=== PATIENT | male | born 1955 | race Caucasian/White ===

== ENCOUNTER 2016-11-10 15:00 | Inpatient (IN) | payer BC ==
[~2016-11-10] VITALS: Ht 175.3 cm; Wt 94.5 kg
[2016-11-10 16:14] LABS: BASO # 0.1 K/mm3 (0.0-0.2); EOS # 0.1 K/mm3 (0.0-0.50); EOS % 1.3 % (0.0-3.0); LARGE UNSTAINED CELL # 0.2 K/mm3 (0.0-0.4); LARGE UNSTAINED CELL % 2.7 % (0.0-4.0); LYMPH # 1.4 K/mm3 (1.5-4.5); LYMPH % 19.2 % (24.0-44.0); MEAN CORPUSCULAR VOLUME 93.9 fl (80.0-96.0); MONO # 0.6 K/mm3 (0.0-0.8); MONO % 10.3 % (0.0-5.0); NEUTROPHILS # 4.1 K/mm3 (1.8-7.7); NEUTROPHILS % 65.5 % (36.0-66.0); PLATELET COUNT, AUTOMATED 205 k/mm3 (150-450); RED CELL DISTRIBUTION WIDTH 13.6 % (11.5-14.5); WHITE BLOOD COUNT 6.2 K/mm3 (4.0-10.0)
[2016-11-10 16:37] LABS: CALCIUM LEVEL 8.6 MG/DL (8.8-10.2); CREATININE FOR GFR 5.18 MG/DL (0.70-1.30); GLOMERULAR FILTRATION RATE 12.1 (>49); MAGNESIUM LEVEL 2.7 MG/DL (1.8-2.4); POTASSIUM SERUM 4.6 MEQ/L (3.5-5.1); THYROXINE (T4) 5.3 UG/DL (4.5-12.0)
--- NOTE | 2016-11-10 16:55 | REP ---
Clinical: Pain and swelling . Technique: Raymond scale and color Doppler evaluation using linear high frequency transducer. Findings: Ultrasound examination of the right and left lower extremity deep venous structures from the common femoral vein to the popliteal vein demonstrates normal compressibility flow and wave patterns in response to respiration and augmentation. There is no evidence for deep venous thrombosis. Impression: No evidence for deep venous thrombosis bilaterally . Signed by Db Herndon MD 11/10/2016 04:45 P
[2016-11-10] MEDS ORDERED: DILT0.05 PO (17:42)
[2016-11-10] MEDS ORDERED: METO-207 PO (17:42)
[2016-11-10] MEDS ORDERED: LASI40TA PO (17:42)
[2016-11-10] MEDS ORDERED: ADVICAP PO (17:44)
--- NOTE | 2016-11-10 17:46 | REP ---
CHEST, TWO VIEWS: HISTORY: Shortness of breath. COMPARISON: 10/05/2016. Linear density is present in the right lower lobe consistent with atelectasis. The left lung is clear. The cardiac silhouette is enlarged. The thoracic aorta is tortuous. The pulmonary vasculature is normal in appearance. The bony structure is intact. IMPRESSION: 1. Right lower lobe atelectasis. 2. Cardiomegaly. Signed by Jefe Beltran MD 11/11/2016 08:17 A
--- NOTE | 2016-11-10 21:02 | HPE ---
DATE OF ADMISSION: 11/10/2016 PRIMARY CARE PROVIDER: None. REASON FOR ADMISSION: Shortness of breath. HISTORY OF PRESENT ILLNESS: The patient is a 61-year-old male past medical a significant for congestive heart failure recently diagnosed at [facility] in [place] with an EF of 50%, atrial fibrillation, kidney disease, history of aortic dissection, hypertension, presented to the emergency room complaining of feeling dizzy and short of breath when he was driving over from [place] he just had an appointment with his monitor technician this morning where his monitor technician just wanted to increase his metoprolol due to increased heart rate. The patient however stated he has been having panic attacks which would make his shortness of breath and tachycardia worse. He has not been able to sleep. Had to pull the car over and calm himself down before he was able to drive again and presented to the emergency room. In the ED the patient was found to have tachycardia, rate 120s to 130s, blood pressure was stable, respiratory rate is 24, first set of troponins were negative. EKG showed atrial fibrillation with rapid return ventricular response. The patient was admitted under hospitalist service. REVIEW OF SYSTEMS: The patient at this time denies any chest pain or shortness of breath. Denies any feeling of dizziness or diaphoresis. He has been having increasingly worsening of panic attacks where he has a has not been able to calm himself down, has been having difficulty falling asleep at night, and feeling not rested in the morning. Has been having decreased urination but no other symptoms. Denies any fevers or chills. No nausea, vomiting or diarrhea. No abdominal pain. No neurological symptoms. PAST MEDICAL HISTORY: Significant for atrial fibrillation, hypertension, aortic dissection, aortic aneurysm, kidney disease and anxiety. PAST SURGICAL HISTORY: None. ALLERGIES: To CLONIDINE; reaction confusion, dizziness. SOCIAL HISTORY: The patient denies any alcohol or smoking. Lives at home alone. FAMILY HISTORY: Noncontributory. HOME MEDICATIONS: include diltiazem 180 mg by mouth daily Lasix 80 mg by mouth daily metoprolol 50 mg at bedtime PHYSICAL FINDINGS ON ADMISSION: Blood pressure is 128/112, pulse was 24, respiratory rate 24, temperature 97.2, pulse ox 99% on room air. HEENT: Pupils equal round reactive to light and accommodation. NECK: Supple. No jugular venous distention. LUNGS: Clear bilaterally. CARDIAC: Irregular rate and rhythm. No murmurs appreciated. ABDOMEN: Soft, nontender, nondistended. EXTREMITIES: +1 edema bilaterally. NEURO: Cranial nerves II-XII grossly intact. No focal deficits. LABORATORY FINDINGS: WBC 6.2, hemoglobin 14.1, hematocrit 44.1, platelet count 205, sodium 139, potassium 4.6, chloride 104, BUN 72, creatinine 5.18, glucose 101, magnesium 2.7, BNP 2320. Thyroid panel was normal. Chest x-ray showed right lower lobe atelectasis and cardiomegaly. Lower extremity ultrasound was negative. ASSESSMENT/PLAN: 1. Shortness of breath likely secondary to panic disorder. The patient has good oxygen saturation. He is satting 99% on room air. Chest x-ray did not show any acute findings other than right lower lobe atelectasis. On physical examination the patient's lung exam sounds clear. Does not appear to be grossly fluid overloaded. We will continue the patient's Lasix 80 mg by mouth daily. 2. History of congestive heart failure per echo results from [facility]. The patient is an EF of 50%. We will continue the patient's Lasix at this time. We will consult Dr. Hall it was agreed to see the patient in consultation. 3. Atrial fibrillation with rapid ventricular response. We will continue the patient's metoprolol. We will monitor the patient on cardiac monitoring. We will continue diltiazem 180 mg by mouth daily. We will consult Dr. Hall. 4. Chronic kidney disease with worsening kidney function. We will consult Dr. Wade. The patient does admit to having a decreased urine output despite being on Lasix 80 mg by mouth daily. 5. History of aortic dissection. The patient does see vascular surgery in [place] who did not recommend any surgery at this time stating that his risk outweighs the benefit of having repair and this is a reason why he is not on any anticoagulation for atrial fibrillation. 6. History of panic disorder. The patient stated has been getting worse. He denies seeing any psychiatrist. He will likely need an outpatient psych referral once medically cleared. 7. DVT prophylaxis. Sequential compression devices (SCDs) while in bed.
--- NOTE | 2016-11-10 22:24 | EDDOCDS ---
Physician Documentation [facility] Name: Jefe Rg Age: 61 yrs Sex: Male : 1955 Arrival Date: 11/10/2016 Time: 15:00 Bed Admit Hold Private MD: Disposition: 11/10/16 17:08 Hospitalization ordered by Jimi Mary for Inpatient Admission. Preliminary diagnosis are Unspecified atrial fibrillation, Acute kidney failure, Acute diastolic (congestive) heart failure. - Bed requested for PCU. - Status is Inpatient Admission. mv5 - Condition is Stable. - Problem is new. - Symptoms are unchanged. Historical: - Allergies: Clonidine (aphasia and dizziness); - Home Meds: 1. diltiazem HCl 180 mg Oral cpER 1 cap once daily (Last dose: 11/10/2016 06:30) 2. furosemide 40 mg Oral tab 2 tabs once daily (Last dose: 11/07/2016) 3. metoprolol ER 50 mg nightly (Last dose: 11/09/2016 22:30) 4. advil cold and flu Unknown 1 cap twice a day (Last dose: 11/10/2016 06:30) - PMHx: Hypertension; aortic dissection; aoritic aneurism; Atrial Fib; kidney disease; - PSHx: none; - Social history: Smoking status: Patient states was never smoker of tobacco. Patient uses No barriers to communication noted, The patient speaks fluent [place]. - Family history: No immediate family members are acutely ill. - : The pt / caregiver states he / she is not on anticoagulants. Home medication list is obtained from patients' pharmacy. - Exposure Risk Screening:: None identified. Vital Signs: 11/10 15:06 BP 128 / 112; Pulse 124; Resp 24; Pulse Ox 99% on R/A; elp 15:34 Temp 97.2; ja5 15:42 BP 117 / 76 (auto/); ja5 15:42 Pulse 100 MON; Pulse Ox 79% ; ja5 15:44 BP 117 / 83 (auto/); ja5 15:44 Pulse 108 MON; Pulse Ox 97% ; ja5 16:02 BP 122 / 90 (auto/); ja5 16:02 Pulse 106 MON; Pulse Ox 95% ; ja5 16:12 Pulse 118 MON; Pulse Ox 96% ; ja5 16:14 BP 128 / 100 (auto/); ja5 16:29 BP 112 / 80 (auto/); ja5 16:29 Pulse 110 MON; ja5 16:43 Pulse 124 MON; ja5 16:44 BP 164 / 85 (auto/); ja5 17:02 BP 135 / 80 (auto/); ja5 17:02 Pulse 124 MON; ja5 17:40 Weight 99.79 kg / 220 lbs; Height 5 ft. 9 in. (175.26 cm); ja5 18:50 BP 137 / 119; Pulse 113; Resp 24; Temp 97.5(O); Pulse Ox 95% on R/A; Pain 0/10; ja5 19:14 BP 127 / 105 (auto/); mv5 19:15 BP 127 / 105; Pulse 126 MON; Resp 18; Temp 96.8(O); Pulse Ox 94% ; mv5 19:29 BP 158 / 119 (auto/); mv5 19:30 Pulse 122 MON; Pulse Ox 96% ; mv5 19:44 BP 156 / 104 (auto/); mv5 19:44 Pulse 122 MON; Pulse Ox 92% ; mv5 19:57 BP 135 / 101 (auto/); mv5 19:58 Pulse 118 MON; Pulse Ox 97% ; mv5 19:59 BP 135 / 119 (auto/); mv5 20:00 Pulse 116 MON; Pulse Ox 96% ; mv5 20:14 BP 132 / 109 (auto/); mv5 20:15 Pulse 112 MON; Pulse Ox 94% ; mv5 20:45 Pulse 126 MON; Pulse Ox 95% ; mv5 21:00 Pulse 126 MON; Pulse Ox 95% ; mv5 21:15 Pulse 124 MON; Pulse Ox 93% ; mv5 21:30 Pulse 120 MON; Pulse Ox 94% ; mv5 21:46 Pulse 132 MON; Pulse Ox 96% ; mv5 17:40 Body Mass Index 32.49 (99.79 kg, 175.26 cm) [facility] MDM: 15:32 -Blood Culture (Adults Only), peripheral from different site, or from device/port/PICC sd1 etc. if present ordered. 15:32 Manager Unit/Pulse Ox/q 15 min VS ordered. sd1 15:32 IV Saline Lock ordered. sd1 15:32 Rhythm Strip to chart ordered. sd1 15:34 Chest, 2 View (pa\E\lat) Ordered. EDMS 15:34 -Blood Culture Ordered. EDMS 15:34 B-Type Natiuretic Peptide Ordered. EDMS 15:34 Basic Metabolic Profile Ordered. EDMS 15:34 CBC with Diff Ordered. EDMS 15:34 Cardiac Injury Profile Ordered. EDMS 15:34 Troponin Ordered. EDMS 15:34 Thyroid Profile Ordered. EDMS 15:34 Magnesium Level Ordered. EDMS 15:34 ECG WITH READING ER PHYS+CARDIAG ordered. EDMS 15:34 US Lower Extremities Bilateral R/O DVT Ordered. EDMS 15:39 -Blood Culture (Adults Only), peripheral from different site, or from device/port/PICC lbd etc. if present complete. 15:41 Misc Care Transitions Manager Order ordered. sd1 15:42 BLOOD CULTURES Ordered. EDMS 15:48 Misc Care Transitions Manager Order ordered. sd1 16:00 Misc Care Transitions Manager Order complete. lbd 16:00 Misc Care Transitions Manager Order complete. lbd 16:03 ECG WITH READING ER PHYS ordered. EDMS 16:20 Financial registration complete. zo 16:45 B-Type Natiuretic Peptide Reviewed. sd1 16:45 Basic Metabolic Profile Reviewed. sd1 16:45 CBC with Diff Reviewed. sd1 16:45 Magnesium Level Reviewed. sd1 16:45 Troponin Reviewed. sd1 17:02 Urine Random,Creatinine Ordered. EDMS 17:02 Urine Random,Potassium, Ordered. EDMS 17:02 Urine,Osmolality Ordered. EDMS 17:04 Basic Metabolic Profile Reviewed. sd1 17:04 Thyroid Profile Reviewed. sd1 17:04 Magnesium Level Reviewed. sd1 17:04 Cardiac Injury Profile Reviewed. sd1 17:04 Troponin Reviewed. sd1 17:46 Admission / Observation Status ordered. EDMS 17:46 2 GRAM SODIUM DIET ordered. EDMS 17:57 [facility] Payment Agreement was scanned into [email or web address] and attached to record. zo 18:15 TROPONIN Ordered. EDMS 19:31 CBC WITH DIFFERENTIAL Ordered. EDMS 19:31 COMPLETE COMPHRENSIVE METABOLI Ordered. EDMS 19:31 MAGNESIUM LEVEL Ordered. EDMS 19:31 TROPONIN Ordered. EDMS 21:18 TROPONIN Ordered. EDMS Signatures: Dispatcher [employer] EDMS Isabel Rodriguez MD MD sd1 Denia Clark, Supervisor [employer] lbd Silvino Gutierrez RN RN cz Carlos Salamanca Steven, RN RN sa Anderson, Jessica, RN RN Marisa JohnsonRN RN mv5 The chart was reviewed and I authenticate all verbal orders and agree with the evaluation and treatment provided.Corrections: (The following items were deleted from the chart) 18:43 15:32 Oxygen at 4L/Min NC or Home dosage ordered. sd1 jc4 21:18 19:31 TROPONIN ordered. EDMS EDMS Attachments: 17:57 [facility] Payment Agreement zo MTDD
--- NOTE | 2016-11-10 22:24 | EDDOCDS ---
Nurse's Notes [facility] Name: Jefe Rg Age: 61 yrs Sex: Male : 1955 Arrival Date: 11/10/2016 Time: 15:00 Bed Admit Hold Private MD: Diagnosis: Unspecified atrial fibrillation;Acute kidney failure;Acute diastolic (congestive) heart failure Presentation: 11/10 15:08 Presenting complaint: Patient states: Was driving back from [place] after followup at [address] Garcia of Cardiology, states he began to feel dizzy and short of breath in the car and pulled over. Pt reports he began to panic and felt that he was going to become incontinent. Pt reports that he is "unbelievably short of breath". States both his arms fell "funny" and that he "sort of" has chest pain. Adult Sepsis Screening: The patient does not have new or worsening altered mentation. Patient has a respiratory rate of greater than or equal to 22 (1 point). Systolic blood pressure is greater than 100. Patient has a qSOFA score of 1- Negative Sepsis Screen. Suicide/Homicide risk assessment- the patient denies having any suicidal and/or homicidal ideations and does not present with any other emotional, behavioral or mental health complaints. Status: Patient is not a statistical machine servicer or dependent. Transition of care: patient was not received from another setting of care. Red Flag criteria, patient assessed and taken directly to a bed. 15:08 Acuity: TIA Level 2 lf1 15:08 Method Of Arrival: Wheelchair [facility] 15:08 Red Flag criteria, patient assessed and taken directly to a bed. Charge notified, pt. 1 taken to room via wheelchair. Primary nurse notified. Triage Assessment: 15:12 General: Appears uncomfortable, Behavior is anxious, restless. Pain: Location: chest, lf1 right arm and left arm Pain currently is 2 out of 10 on a pain scale. Pt Declines HIV testing. Neurological: Level of Consciousness is awake, alert, Oriented to person, place, time, Speech is normal. EENT: No deficits noted. Cardiovascular: Chest pain "sort of". Respiratory: Reports shortness of breath. GI: Denies nausea, vomiting. GI: Reports constipation, decreased appetite and weight loss. : Reports inability to void States he is taking Lasix but is having trouble voiding. Derm: Skin is normal. Injury Description: No known injury. Historical: - Allergies: Clonidine (aphasia and dizziness); - Home Meds: 1. diltiazem HCl 180 mg Oral cpER 1 cap once daily (Last dose: 11/10/2016 06:30) 2. furosemide 40 mg Oral tab 2 tabs once daily (Last dose: 11/07/2016) 3. metoprolol ER 50 mg nightly (Last dose: 11/09/2016 22:30) 4. advil cold and flu Unknown 1 cap twice a day (Last dose: 11/10/2016 06:30) - PMHx: Hypertension; aortic dissection; aoritic aneurism; Atrial Fib; kidney disease; - PSHx: none; - Social history: Smoking status: Patient states was never smoker of tobacco. Patient uses No barriers to communication noted, The patient speaks fluent [place]. - Family history: No immediate family members are acutely ill. - : The pt / caregiver states he / she is not on anticoagulants. Home medication list is obtained from patients' pharmacy. - Exposure Risk Screening:: None identified. Screenin:01 Screening information is obtained from the patient. Fall risk: No risks identified. ja5 Assistance ADL's: requires no assistance with activities of daily living. Abuse/DV Screen: The patient / caregiver reports he/she is: not in a situation that causes fear, pain or injury. Nutritional screening: On no prescribed diet. Advance Directives: Currently, there is no health care proxy. There is no active DNR order. There is no living will. There is no Power of Groover Runner. home support is inadequate. Assessment: 16:05 General: Appears in no apparent distress, Behavior is appropriate for age, cooperative. ja5 Neurological: Level of Consciousness is awake, alert, Oriented to person, place, time. Cardiovascular: Capillary refill < 3 seconds Heart tones S1 S2 present Rhythm is atrial fibrillation. Respiratory: Airway is patent Respiratory effort is even, unlabored, Respiratory pattern is regular, symmetrical. Derm: Skin is pink, warm & dry. 17:05 General: Patient sitting up in stretcher, he reported that he just had another episode ja5 of shortness of breath before I walked into the room. Patient denies chest pain at this time. Patient is awake, alert, oriented with even and unlabored respirations O2 sat 96% on RA; afib on cardiac sonographer. . 18:51 General: Patient is sitting up on stretcher, denies chest pain or shortness of breath ja5 at this time but he stated "I had another episode five minutes ago." Respirations even and unlabored, color is pink, afib on cardiac sonographer. Bed in low position, call malagon in reach. . 19:29 General: Appears in no apparent distress, well nourished, well groomed, Behavior is mv5 cooperative, restless, Pt ambulating in room to help manage feeling of shortness of breath and anxiety, VSS on monitor.. General:. Pain: Denies pain. Neurological: Level of Consciousness is awake, alert, Oriented to person, place, time, Moves all extremities. Gait is steady, Speech is normal, Facial symmetry appears normal. Cardiovascular: Capillary refill < 3 seconds Rhythm is atrial fibrillation Other variable rate 110's-120's. Respiratory: Airway is patent Respiratory effort is even, unlabored, Respiratory pattern is regular, symmetrical. Derm: Skin is pink, warm & dry. 19:38 General: SBAR faxed to PCU, confirmed by community relations rep. Advised that pt's current room mv5 assignment will change and PCU staff will notify when room is ready.. 20:22 General: Appears in no apparent distress, Behavior is cooperative, pleasant, Admission mv5 RN at bedside.. Neurological: No deficits noted. Cardiovascular: Rhythm is atrial fibrillation. Respiratory: Airway is patent Respiratory effort is even, unlabored, Respiratory pattern is regular, symmetrical. Derm: Skin is pink, warm & dry. 21:47 General: Appears in no apparent distress. Neurological: No deficits noted. mv5 Cardiovascular: Rhythm is atrial fibrillation. Respiratory: Airway is patent Respiratory effort is even, unlabored, Respiratory pattern is regular, symmetrical. Derm: Skin is pink, warm & dry. 22:20 General: Appears in no apparent distress. Neurological: No deficits noted. mv5 Cardiovascular: Rhythm is atrial fibrillation. Respiratory: Airway is patent Respiratory effort is even, unlabored, Respiratory pattern is regular, symmetrical. Derm: Skin is pink, warm & dry. Social Work Consult: 18:52 Social Work Note: This magnetic tape typewriter operator met with pt who reports he has been having increasing ac panic attacks. Pt states he has not been in outpatient treatment recently. did see a counselor years ago when he lived in [place]. Pt provided with outpatient referrals. Pt will be admitted to the hospital, will be followed by [facility] as needed. Vital Signs: 15:06 BP 128 / 112; Pulse 124; Resp 24; Pulse Ox 99% on R/A; elp 15:34 Temp 97.2; ja5 15:42 BP 117 / 76 (auto/); ja5 15:42 Pulse 100 MON; Pulse Ox 79% ; ja5 15:44 BP 117 / 83 (auto/); ja5 15:44 Pulse 108 MON; Pulse Ox 97% ; ja5 16:02 BP 122 / 90 (auto/); ja5 16:02 Pulse 106 MON; Pulse Ox 95% ; ja5 16:12 Pulse 118 MON; Pulse Ox 96% ; ja5 16:14 BP 128 / 100 (auto/); ja5 16:29 BP 112 / 80 (auto/); ja5 16:29 Pulse 110 MON; ja5 16:43 Pulse 124 MON; ja5 16:44 BP 164 / 85 (auto/); ja5 17:02 BP 135 / 80 (auto/); ja5 17:02 Pulse 124 MON; ja5 17:40 Weight 99.79 kg; Height 5 ft. 9 in. (175.26 cm); ja5 18:50 BP 137 / 119; Pulse 113; Resp 24; Temp 97.5(O); Pulse Ox 95% on R/A; Pain 0/10; ja5 19:14 BP 127 / 105 (auto/); mv5 19:15 BP 127 / 105; Pulse 126 MON; Resp 18; Temp 96.8(O); Pulse Ox 94% ; mv5 19:29 BP 158 / 119 (auto/); mv5 19:30 Pulse 122 MON; Pulse Ox 96% ; mv5 19:44 BP 156 / 104 (auto/); mv5 19:44 Pulse 122 MON; Pulse Ox 92% ; mv5 19:57 BP 135 / 101 (auto/); mv5 19:58 Pulse 118 MON; Pulse Ox 97% ; mv5 19:59 BP 135 / 119 (auto/); mv5 20:00 Pulse 116 MON; Pulse Ox 96% ; mv5 20:14 BP 132 / 109 (auto/); mv5 20:15 Pulse 112 MON; Pulse Ox 94% ; mv5 20:45 Pulse 126 MON; Pulse Ox 95% ; mv5 21:00 Pulse 126 MON; Pulse Ox 95% ; mv5 21:15 Pulse 124 MON; Pulse Ox 93% ; mv5 21:30 Pulse 120 MON; Pulse Ox 94% ; mv5 21:46 Pulse 132 MON; Pulse Ox 96% ; mv5 17:40 Body Mass Index 32.49 (99.79 kg, 175.26 cm) Vitals: 15:06 Log In Time: November 10, 2016 at 15:00. RN notified that patient meets Red Flag elp criteria. ED Course: 15:06 Patient visited by Olya Harley PCA. elp 15:06 Sol Evans, RN is Primary Nurse. elp 15:06 Vijaya Moreau,RN is Primary Nurse. elp 15:06 Patient visited by Olya Harley PCA. elp 15:06 Patient moved to Waiting elp 15:06 Patient moved to 14 elp 15:07 Patient moved to 15 hs1 15:08 Isabel Rodriguez MD is Attending Physician. sd1 15:12 Triage Initiated lf1 15:33 Patient visited by Isabel Rodriguez MD. sd1 15:45 EKG done. (by ED staff). Reviewed by Isabel Rodriguez MD. cmb 15:47 Patient visited by Dottie Cespedes. cmb 15:47 Pt greeted and oriented to ED. Patient advised of names of staff involved in care, cmb location of call malagon, wait times and NPO status. Patient has correct armband on for positive identification. Placed in gown. Bed in low position. Call light in reach. Side rails up X2. monitor tech on. Pulse ox on. NIBP on. 16:04 BLOOD CULTURES Sent. 16:04 -Blood Culture Sent. 16:04 B-Type Natiuretic Peptide Sent. 16:04 Basic Metabolic Profile Sent. 16:04 CBC with Diff Sent. 16:04 Cardiac Injury Profile Sent. 16:04 Troponin Sent. 16:05 Inserted saline lock: 18 gauge in right antecubital area. ja5 16:29 Patient moved to Ultrasound es5 16:40 Patient moved to 15 am17 17:00 Patient visited by Vijaya Moreau RN. ja5 17:08 Jimi Mary is Hospitalizing Provider. sd1 17:18 Patient visited by Vijaya Moreau RN. ja5 17:28 US Lower Extremities Bilateral R/O DVT Returned. EDMS 17:57 Patient name changed from Jefe\\S\\\\S\\Arcenio\\S\\ to Jefe\\S\\ \\S\\Arcenio. EDMS 17:57 [facility] Payment Agreement was scanned into [employer] and attached to record. zo 18:24 Chest, 2 View (pa\\E\\lat) Returned. EDMS 18:43 Patient moved to Admit Hold kp 19:03 Primary Nurse role handed off by Sol Evans RN jc4 19:03 Primary Nurse role handed off by Vijaya Moreau RN jc4 19:06 Marisa Elizabeth,LAURA is Primary Nurse. mv5 19:29 The patient / caregiver is instructed regarding the plan of care and ED course. mv5 19:29 No procedures done that require assistance. mv5 Order Results: Lab Order: B-Type Natiuretic Peptide; SPEC'M 11/10/16 16:00 Test: BRAIN NATRIURETIC PEPTIDE; Value: 2320; Range: <100; Abnormal: Above high normal; Units: PG/ML; Status: F Lab Order: Basic Metabolic Profile; SPEC'M 11/10/16 16:00 Test: GLUCOSE, FASTING; Value: 101; Range: 80-110; Units: MG/DL; Status: F Test: BLOOD UREA NITROGEN; Value: 72; Range: 7-18; Abnormal: Above high normal; Units: MG/DL; Status: F Test: CREATININE FOR GFR; Value: 5.18; Range: 0.70-1.30; Abnormal: Above high normal; Units: MG/DL; Status: F Test: GLOMERULAR FILTRATION RATE; Value: 12.1; Range: >49; Abnormal: Below low normal; Status: F Test: SODIUM LEVEL; Value: 139; Range: 136-145; Units: MEQ/L; Status: F Test: POTASSIUM SERUM; Value: 4.6; Range: 3.5-5.1; Units: MEQ/L; Status: F Test: CHLORIDE LEVEL; Value: 104; Range: 98-107; Units: MEQ/L; Status: F Test: CARBON DIOXIDE LEVEL; Value: 24; Range: 21-32; Units: MEQ/L; Status: F Test: ANION GAP; Value: 11; Range: 8-16; Units: MEQ/L; Status: F Test: CALCIUM LEVEL; Value: 8.6; Range: 8.8-10.2; Abnormal: Below low normal; Units: MG/DL; Status: F Test Note: ; Units are mL/min/1.73 m2 Chronic Kidney Disease Staging per NKF: Stage I & II GFR >=60 Normal to Mildly Decreased Stage III GFR 30-59 Moderately Decreased Stage IV GFR 15-29 Severely Decreased Stage V GFR <15 Very Little GFR Left ESRD GFR <15 on LAND [employer] CHIEF Lab Order: CBC with Diff; SPEC'M 11/10/16 16:00 Test: WHITE BLOOD COUNT; Value: 6.2; Range: 4.0-10.0; Units: K/mm3; Status: F Test: RED BLOOD COUNT; Value: 4.69; Range: 4.30-6.10; Units: M/mm3; Status: F Test: HEMOGLOBIN; Value: 14.1; Range: 14.0-18.0; Units: g/dl; Status: F Test: HEMATOCRIT; Value: 44.1; Range: 42.0-52.0; Units: %; Status: F Test: MEAN CORPUSCULAR VOLUME; Value: 93.9; Range: 80.0-96.0; Units: fl; Status: F Test: MEAN CORPUSCULAR HEMOGLOBIN; Value: 30.0; Range: 27.0-33.0; Units: pg; Status: F Test: MEAN CORPUSCULAR HGB CONC; Value: 32.0; Range: 32.0-36.5; Units: g/dl; Status: F Test: RED CELL DISTRIBUTION WIDTH; Value: 13.6; Range: 11.5-14.5; Units: %; Status: F Test: PLATELET COUNT, AUTOMATED; Value: 205; Range: 150-450; Units: k/mm3; Status: F Test: NEUTROPHILS %; Value: 65.5; Range: 36.0-66.0; Units: %; Status: F Test: LYMPH %; Value: 19.2; Range: 24.0-44.0; Abnormal: Below low normal; Units: %; Status: F Test: MONO %; Value: 10.3; Range: 0.0-5.0; Abnormal: Above high normal; Units: %; Status: F Test: EOS %; Value: 1.3; Range: 0.0-3.0; Units: %; Status: F Test: BASO %; Value: 1.0; Range: 0.0-1.0; Units: %; Status: F Test: LARGE UNSTAINED CELL %; Value: 2.7; Range: 0.0-4.0; Units: %; Status: F Test: NEUTROPHILS #; Value: 4.1; Range: 1.8-7.7; Units: K/mm3; Status: F Test: LYMPH #; Value: 1.4; Range: 1.5-4.5; Abnormal: Below low normal; Units: K/mm3; Status: F Test: MONO #; Value: 0.6; Range: 0.0-0.8; Units: K/mm3; Status: F Test: EOS #; Value: 0.1; Range: 0.0-0.50; Units: K/mm3; Status: F Test: BASO #; Value: 0.1; Range: 0.0-0.2; Units: K/mm3; Status: F Test: LARGE UNSTAINED CELL #; Value: 0.2; Range: 0.0-0.4; Units: K/mm3; Status: F Lab Order: Cardiac Injury Profile; SPEC' 11/10/16 16:00 Test: CPK CREATINE PHOSPHOKINASE; Value: 82; Range: 39-308; Units: U/L; Status: F Test: CK-MB VALUE MASS; Value: 1.7; Range: 0.0-3.6; Units: NG/ML; Status: F Test: MB/CK RELATIVE INDEX; Value: 2.07; Range: < OR =4; Status: F Test Note: ; DIAGNOSIS CRITERIA MMB ng/ml Relative Index (RI) NON-AMI < or = 5 N/A RAYMOND ZONE > 5 < or = 4 AMI > 5 > 4 Lab Order: Troponin; SPEC' 11/10/16 16:00 Test: TROPONIN I; Value: 0.04; Range: < 0.10; Units: NG/ML; Status: F Test Note: ; Troponin I Reference Interval for Siemens Xipin LOCI: 99th Percentile= 0.00-0.045 ng/ml Risk Stratification: <= 0.10 ng/ml Decreased Risk for Adverse Clinical Events. 0.10-1.50 ng/ml Increased Risk for Adverse Clinical Events. Evaluation of additional criterion and/or repeat testing in 2-6 hours is suggested to rule out myocardial damage. >= 1.50 ng/ml Indicative of Myocardial Injury. Lab Order: Thyroid Profile; [facility] 16:00 Test: T UPTAKE; Value: 41; Range: 33-40; Abnormal: Above high normal; Units: %; Status: F Test: THYROXINE (T4); Value: 5.3; Range: 4.5-12.0; Units: UG/DL; Status: F Test: FREE THYROXINE INDEX; Value: 2.2; Range: 1.4-3.8; Units: %; Status: F Test: THYROID STIMULATING HORMONE; Value: 2.990; Range: 0.358-3.740; Units: uIU/ML; Status: F Lab Order: Magnesium Level; [facility] 11/10/16 16:00 Test: MAGNESIUM LEVEL; Value: 2.7; Range: 1.8-2.4; Abnormal: Above high normal; Units: MG/DL; Status: F Lab Order: Urine Random,Creatinine; [facility]11/10/16 22:01 Test: CREATININE,RANDOM URINE; Units: MG/DL; Status: I Lab Order: Urine Random,Potassium,; 11/10/16 22:01 Test: POTASSIUM RANDOM URINE; Units: MEQ/L; Status: I Lab Order: Urine,Osmolality; [facility] 11/10/16 22:01 Test: OSMOLALITY URINE; Value: 504; Range: 500-800; Units: MOSM/KG; Status: F Radiology Order: Chest, 2 View (pa\\E\\lat) Test: Chest, 2 View (pa\\E\\lat) REASON FOR EXAMINATION: sob; CHEST, TWO VIEWS:; ; HISTORY: Shortness of breath.; ; COMPARISON: 10/05/2016.; ; Linear density is present in the right lower lobe consistent with atelectasis.; The left lung is clear. The cardiac silhouette is enlarged. The thoracic aorta is; tortuous. The pulmonary vasculature is normal in appearance. The bony structure; is intact.; ; IMPRESSION:; 1. Right lower lobe atelectasis.; 2. Cardiomegaly.; ; ; ; Unreviewed; Radiology Order: US Lower Extremities Bilateral R/O DVT Test: US Lower Extremities Bilateral R/O DVT REASON FOR EXAMINATION: swelling; Clinical: Pain and swelling .; ; Technique: Raymond scale and color Doppler evaluation using linear high frequency; transducer.; ; Findings:; Ultrasound examination of the right and left lower extremity deep venous; structures from the common femoral vein to the popliteal vein demonstrates normal; compressibility flow and wave patterns in response to respiration and; augmentation. There is no evidence for deep venous thrombosis.; ; Impression:; No evidence for deep venous thrombosis bilaterally .; ; ; Signed by; Db Herndon MD 11/10/2016 04:45 P; Outcome: 17:08 Decision to Hospitalize by Provider. sd1 22:21 Discharge Assessment: Patient awake, alert and oriented x 3. No cognitive and/or mv5 functional deficits noted. Patient verbalized understanding of disposition instructions. patient administered narcotics - no. The following High Risk Discharge criteria are identified: None. Admitted to PCU accompanied by nurse, accompanied by tech, on monitor. Condition: stable. No special radiology studies were completed. Property :Personal belongings accompany Pt. 22:23 Patient left the ED. mv5 Signatures: Dispatcher [employer] EDMS Isabel Rodriguez MD MD sd1 Shante Cooper RN RN kpNj Gamboa, SHAYNE PSA Carlos Madrid Lisa, RN RN lf1 Tressa Irvin RN RN hs1 Sol Evans RN RN jc4 Dottie Cespedes Erica es5 Olya Harley, NUT TIGHTENER NUT TIGHTENER Melita House Jessica, RN RN ja5 Marisa Elizabeth RN RN mv5 Corrections: (The following items were deleted from the chart) 15:18 15:08 Red Flag criteria, patient assessed and taken directly to a bed. Charge notified, lf1 pt. taken to room via wheelchair. lf1 MTDD
[2016-11-10 23:00] VITALS: BP_SYST 120
[2016-11-10] MEDS ORDERED: SLF 3 ML SYR IV PRN (23:15)
[2016-11-10] MEDS: METOPROLOL SUCC (TopROL XL) 50MG **XL** TAB PO SCH (23:35)
[2016-11-10] MEDS: FUROSEMIDE 80 MG TAB PO SCH (23:45)
[2016-11-11] VITALS (7 sets, daily range): BP systolic 125–162; BP diastolic 100–122
[2016-11-11 05:55] LABS: BASO % 0.7 % (0.0-1.0); EOS # 0.1 K/mm3 (0.0-0.50); EOS % 1.6 % (0.0-3.0); LARGE UNSTAINED CELL # 0.2 K/mm3 (0.0-0.4); LARGE UNSTAINED CELL % 2.7 % (0.0-4.0); LYMPH # 1.5 K/mm3 (1.5-4.5); LYMPH % 21.6 % (24.0-44.0); MEAN CORPUSCULAR HEMOGLOBIN 29.8 pg (27.0-33.0); MEAN CORPUSCULAR HGB CONC 32.2 g/dl (32.0-36.5); MEAN CORPUSCULAR VOLUME 92.7 fl (80.0-96.0); MONO # 0.6 K/mm3 (0.0-0.8); MONO % 9.9 % (0.0-5.0); NEUTROPHILS % 63.6 % (36.0-66.0); PLATELET COUNT, AUTOMATED 155 k/mm3 (150-450); RED CELL DISTRIBUTION WIDTH 13.6 % (11.5-14.5); WHITE BLOOD COUNT 6.2 K/mm3 (4.0-10.0)
[2016-11-11] MEDS: SLF 3 ML SYR IV SCH ×3 (06:00→20:57)
[2016-11-11 06:16] LABS: ALBUMIN 2.9 GM/DL (3.2-5.2); ALBUMIN/GLOBULIN RATIO 0.91 (1.00-1.93); BILIRUBIN,TOTAL 1.3 MG/DL (0.2-1.0); CALCIUM LEVEL 8.5 MG/DL (8.8-10.2); CREATININE FOR GFR 4.88 MG/DL (0.70-1.30); MAGNESIUM LEVEL 2.4 MG/DL (1.8-2.4); POTASSIUM SERUM 4.2 MEQ/L (3.5-5.1); TOTAL PROTEIN 6.1 GM/DL (6.4-8.2)
--- NOTE | 2016-11-11 08:24 | IPNPDOC ---
Subjective Date Seen The patient was seen on 11/11/16. Subjective Chief Complaint/HPI The patient is a 61-year-old male admitted with a reason for visit of SOB. General: Denies: Chills, Fatigue, Malaise, Night Sweats, Normal Appetite, Other Symptoms, ROS Unobtainable Constitutional: Denies: Chills, Fatigue, Fever, Lethargy, Malaise, Night Sweats , Other, Weakness, Weight Loss Eyes: Denies: Conjunctivae inflammation, Eyelid inflammation, Other, Pain, Redness, Vision change ENT: Denies: Dysphagia, Ear Pain, Epistaxis, Head Aches, Other Symptoms, Post Nasal Drip, Sinus Congestion, Sore Throat Skin: Denies: Breakdown, Bruising, Dry, Itching, Jaundice, Lesions, Nail Changes, Other, Rash Pulmonary: Reports: Dyspnea, Denies: Cough, Other Symptoms, Pleuritic Chest Pain Cardiovascular: Denies: Chest Pain, Edema, Lt Headedness, Orthopnea, Other Symptoms, Palpitations, Paroxysmal Noc. Dyspnea Gastrointestinal: Denies: Abdominal Pain, Constipation, Diarrhea, Hematochezia , Melena, Nausea, Other Symptoms, Vomiting Genitourinary: Denies: Dysuria, Frequency, Hematuria, Incontinence, Other Symptoms, Retention Psych: Reports: Anxiety Objective Physical Examination General Exam: Positive: Alert, Cooperative, No Acute Distress Eye Exam: Positive: Conjunctiva & lids normal, EOMI, PERRLA, Negative: Sclera icteric ENT Exam: Positive: Atraumatic, Mucous membr. moist/pink Neck Exam: Positive: Supple Chest Exam: Positive: Clear to auscultation, Normal air movement Heart Exam: Positive: Irregular Rhythm, Tachycardic Telemetry: Positive: Atrial fibrillation Abdomen Exam: Positive: Normal bowel sounds, Soft, Negative: Tenderness Psych Exam: Positive: Anxiety, Oriented x 3 Assessment /Plan Problems (1) Chest pain Status: Resolved Discussed With: Visitor Information Assistant, Patient Problem Specific Plan: Consult Specialist, Monitor Clinically Problem Text: Troponins negative. Cardiology consultation pending. (2) Afib Status: Chronic Response to Treatment: Progressing Discussed With: Visitor Information Assistant, Patient Problem Specific Plan: Consult Specialist, Monitor Clinically Problem Text: rate not controlled - RVR. Likely implement beta blockade. Cardiology consultation pending. (3) Anxiety Status: Acute Discussed With: Patient Problem Specific Plan: Monitor Clinically Problem Text: Beta blockade anticipated for Afib/RVR which may help with anxiety. consider low dose BZD as needed. Outpatient follow up with PCP vs psychiatry. (4) Shortness of breath Status: Acute Discussed With: Patient Problem Specific Plan: Monitor Clinically Problem Text: Appears to be related to anxiety/panic attacks. Also likely KAYLA. States he was previously scheduled for sleep study however did not attend his appointment. Will check nocturnal oximetry. (5) HTN (hypertension) Status: Chronic Problem Specific Plan: Monitor Clinically (6) Aortic dissection Status: Chronic Problem Text: Known history of aortic dissection/aneurysm. CT chest pending. Blood pressure control. Obtain old record from [place]. (7) CKD (chronic kidney disease) Status: Chronic Problem Specific Plan: Consult Specialist, Repeat Labs Problem Text: baseline CKD IV-V discussed with nephrology, consultation appreciated check urine Plan/VTE VTE Prophylaxis Ordered?: Yes Plan Diet: Continue Current Activity: Continue Current Diagnostics: Repeat Labs in AM, EKG CT chest report reviewed. Extensive discussion with his automation software engineer Dr. Garcia at [facility]. Patient has known chronic type B dissection. Vascular service was following as well. Discussed with vascular as well. Cardiology and vascular recommending starting anti-coagulation, bridging not needed. Given valvulopathy (bi-cuspid aortic valve) warfarin is recommended. Will start today. Toprol XL was actually increased to 100mg PO daily, and cardizem 180 daily. Patient has follow up appointment with cardiology TuesdayNovember 23. VS, I&O, 24H, [facility] Vital Signs/I&O Vital Signs Date Time Temp Pulse Resp B/P Pulse Ox O2 Delivery O2 Flow Rate FiO2 11/11/16 04:00 96.0 114 22 125/100 93 Room Air I&O- Last 24 Hours up to 6 AM 11/11/16 06:00 Intake Total 120 ml Output Total 200 ml Balance -80 ml Laboratory Data 24H LABS Laboratory Tests 2 11/10/16 16:00: Anion Gap 11, B-Type Natriuretic Peptide 2320H, White Blood Count 6.2, Red Blood Count 4.69, Hemoglobin 14.1, Hematocrit 44.1, Mean Corpuscular Volume 93.9 , Mean Corpuscular Hemoglobin 30.0, Mean Corpuscular Hemoglobin Concent 32.0, Red Cell Distribution Width 13.6, Platelet Count 205, Neutrophils (%) (Auto) 65.5, Lymphocytes (%) (Auto) 19.2L, Monocytes (%) (Auto) 10.3H, Eosinophils (%) (Auto) 1.3, Basophils (%) (Auto) 1.0, Neutrophils # (Auto) 4.1, Lymphocytes # ( Auto) 1.4L, Monocytes # (Auto) 0.6, Eosinophils # (Auto) 0.1, Basophils # (Auto ) 0.1, Blood Urea Nitrogen 72H, Creatinine 5.18H, Sodium Level 139, Potassium Level 4.6, Chloride Level 104, Carbon Dioxide Level 24, Calcium Level 8.6L, Total Creatine Kinase 82, Creatine Kinase MB 1.7, Creatine Kinase MB Relative Index 2.07, Free Thyroxine Index 2.2, Glomerular Filtration Rate 12.1L, Large Unclassified Cells # 0.2, Large Unclassified Cells % 2.7, Magnesium Level 2.7H, Thyroid Stimulating Hormone (TSH) 2.990, Thyroxine (T4) 5.3, Triiodothyronine ( T3) Uptake 41H, Troponin I 0.04 11/10/16 22:01: Urine Random Creatinine 208.0, Urine Random Osmolality 504, Urine Random Potassium 59.4 11/10/16 23:18: Troponin I 0.04 11/11/16 05:33: Anion Gap 15, White Blood Count 6.2, Red Blood Count 4.34, Hemoglobin 12.9L, Hematocrit 40.3L, Mean Corpuscular Volume 92.7, Mean Corpuscular Hemoglobin 29.8 , Mean Corpuscular Hemoglobin Concent 32.2, Red Cell Distribution Width 13.6, Platelet Count 155, Neutrophils (%) (Auto) 63.6, Lymphocytes (%) (Auto) 21.6L, Monocytes (%) (Auto) 9.9H, Eosinophils (%) (Auto) 1.6, Basophils (%) (Auto) 0.7 , Neutrophils # (Auto) 4.0, Lymphocytes # (Auto) 1.5, Monocytes # (Auto) 0.6, Eosinophils # (Auto) 0.1, Basophils # (Auto) 0.0, Blood Urea Nitrogen 76H, Creatinine 4.88H, Sodium Level 139, Potassium Level 4.2, Chloride Level 106, Carbon Dioxide Level 18L, Calcium Level 8.5L, Glomerular Filtration Rate 13.0L, Large Unclassified Cells # 0.2, Large Unclassified Cells % 2.7, Magnesium Level 2.4, Troponin I 0.04, Aspartate Amino Transf (AST/SGOT) 16, Alanine Aminotransferase (ALT/SGPT) 25, Alkaline Phosphatase 74, Total Bilirubin 1.3H, Total Protein 6.1L, Albumin 2.9L, Albumin/Globulin Ratio 0.91L CBC/BMP Laboratory Tests 11/10/16 16:00 Calcium Level 8.6 L, Total Creatine Kinase 82, Red Blood Count 4.69, Mean Corpuscular Volume 93.9, Mean Corpuscular Hemoglobin 30.0, Mean Corpuscular Hemoglobin Concent 32.0, Red Cell Distribution Width 13.6, Neutrophils (%) (Auto ) 65.5, Lymphocytes (%) (Auto) 19.2 L, Monocytes (%) (Auto) 10.3 H, Eosinophils (%) (Auto) 1.3, Basophils (%) (Auto) 1.0, Neutrophils # (Auto) 4.1, Lymphocytes # (Auto) 1.4 L, Monocytes # (Auto) 0.6, Eosinophils # (Auto) 0.1, Basophils # ( Auto) 0.1 11/11/16 05:33 Calcium Level 8.5 L, Red Blood Count 4.34, Mean Corpuscular Volume 92.7, Mean Corpuscular Hemoglobin 29.8, Mean Corpuscular Hemoglobin Concent 32.2, Red Cell Distribution Width 13.6, Neutrophils (%) (Auto) 63.6, Lymphocytes (%) (Auto) 21.6 L, Monocytes (%) (Auto) 9.9 H, Eosinophils (%) (Auto) 1.6, Basophils (%) ( Auto) 0.7, Neutrophils # (Auto) 4.0, Lymphocytes # (Auto) 1.5, Monocytes # (Auto ) 0.6, Eosinophils # (Auto) 0.1, Basophils # (Auto) 0.0, Aspartate Amino Transf (AST/SGOT) 16, Alanine Aminotransferase (ALT/SGPT) 25, Alkaline Phosphatase 74, Total Bilirubin 1.3 H, Total Protein 6.1 L, Albumin 2.9 L Microbiology Microbiology 11/10/16 Blood Culture, Received Pending 11/10/16 Blood Culture, Received Pending SU BALLESTEROS MD Nov 11, 2016 07:04
[2016-11-11] MEDS: FUROSEMIDE 80 MG TAB PO SCH (08:39)
[2016-11-11] MEDS: diltiaZEM **CD** 180 MG CAP PO SCH (08:39)
--- NOTE | 2016-11-11 11:01 | REP ---
Clinical: Widened mediastinum. Findings: There is aneurysmal dilatation to the thoracic aorta extending distally from the level of the aortic arch where associated contour abnormality is appreciated with presumed irregular atherosclerotic calcifications and mural thrombus. Aortic dissection is of concern and warrants CT angiography of the thoracic aorta. Cardiomegaly with atherosclerotic changes to the coronary arteries noted without pericardial effusion. There are [id number] right and small left pleural effusions with right basilar atelectasis. Trace middle lobe and left lower lobe atelectasis is also appreciated. No obvious adenopathy. Impression: 1. Aortic aneurysm and possible dissection involving the aortic arch through descending thoracic aorta warrants CT angiography. 2. Bilateral pleural effusions and atelectasis (right greater than left). Signed by Db Herndon MD 11/11/2016 10:53 A
[2016-11-11 12:33] LABS: PHOSPHORUS LEVEL 4.9 MG/DL (2.5-4.9)
[2016-11-11] MEDS ORDERED: AMIODARONE HCL 150 MG in APPROPRIATE DILUENT 1 EA IV ONE ×2 (14:00→21:00)
[2016-11-11] MEDS ORDERED: METOPROLOL SUCC (TopROL XL) 50MG **XL** TAB PO ONE (14:00)
[2016-11-11 15:22] LABS: INR 1.28
[2016-11-11] MEDS ORDERED: ALPRAZolam 0.25 MG TAB PO ONE (19:45)
--- NOTE | 2016-11-11 20:48 | CR ---
DATE OF CONSULTATION: 11/11/2016 REFERRING PROVIDER: Dr. Jefe Motley REASON FOR THE CONSULT: Atrial fibrillation with uncontrolled ventricular rate, history of type B aortic aneurysm and dissection. Mr. Jefe Rg has a remarkable and extensive vascular history with a diagnostic of extensive aortic aneurysm, type B, associated with dissection that was diagnosed in 2013. At that time, he was having some gastrointestinal (GI) symptoms. He does have a history of hypertension. He was evaluated by vascular surgeon and cardiothoracic surgeon in [place] where he was living, and he was told that he is not a candidate for surgery, the risks associated with surgery is too high. He also has a history of hypertension, chronic kidney disease. He had recently moved to the area, last fall, starting a new job, and he is living in [place], [place], at the present time. 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 For about a month prior to being admitted at [facility], he has developed increasing shortness of breath and pedal edema. He came first to [facility] for evaluation, and it was thought that he was in heart failure and also he was in atrial fibrillation with a rapid ventricular rate. Transfer to a [facility] was recommended. At that time, he drove himself to [facility] upon the recommendations of a friend, who has had a good experience with [facility]. While there, he was found to have acute on chronic kidney disease, congestive heart failure, bilateral pleural effusion and atrial fibrillation with a rapid ventricular rate. His diagnostic of type B aortic aneurysm/dissection was confirmed by chest CT and MRI of the chest and the abdomen. He was evaluated there by cardiothoracic and vascular surgeon, and he was told that he is not a candidate for surgery at the present time and he is planning to see the surgeon in 3 months for a repeat evaluation. Prior to his admission, he was on amlodipine and he was discharged home on long-acting Cardizem as well as long-acting beta junior with metoprolol succinate, and a small dose of diuretic/furosemide. On the day prior to being admitted here, he went to [place] to see his concrete float maker and he is not quite sure about the plan and he is planning to see him again in about 2-3 weeks. He is not sure that he will proceed with mechanical cardioversion versus ablation, but he is leaning toward ablation. Anticoagulation therapy was recommended upon discharge, but it was decided to discharge him on aspirin, but he has not been taking it. Upon driving back from [place] from his concrete float maker's office, he developed a rapid heart rate, shortness of breath and he drove himself to the emergency room. Upon arrival, his vital signs revealed a blood pressure of 128/112 with a pulse of 124, respirations 24 and his oxygen saturation was 99% on room air. He was afebrile with a temperature of 97.2 degrees Fahrenheit. He was admitted for further management and monitoring and cardiology consult was called. An echocardiogram done at [facility] revealed a left ventricular systolic function estimated at 50-55% with mild global hypokinesis, moderate concentric left ventricular hypertrophy, diastolic dysfunction, mild to moderate mitral regurgitation, mild to moderate tricuspid regurgitation with mild pulmonary hypertension. The ascending aorta was measured to be 4.3 cm and double lumen was seen in the abdominal aorta consistent with a history of aortic dissection. Left atrium was severely enlarged as well as the right atrium, and he was found, this is new for him, to have bicuspid aortic valve with trace aortic regurgitation. There was fusion of the right and left coronary cusps. There was no aortic stenosis. There was trivial pericardial effusion. When I saw Mr. Jefe Rg on the floor, he was sitting in a chair in no acute distress at rest. He denies any chest pain and has not been complaining of chest pain but does complain of shortness of breath with activities, relieved with rest. It seems that he does have some orthopnea at times. He denies any bleeding. He has a cough but no hemoptysis. He has no nausea, vomiting, diarrhea, melena or hematemesis. He has no focal manifestation. He does have some minimal pedal edema and this has been stable. He has a past medical history, as mentioned above, positive for hypertension, type B aortic dissection, extensive aortic aneurysm, atrial fibrillation diagnosed on 10/05/2016, acute on chronic kidney disease and while at [facility], he had thoracentesis and 900 mL of pleural fluid was removed on the right. He also has mild to moderate mitral regurgitation with a low normal global left ventricular systolic function. He denies any history of hyperlipidemia, diabetes mellitus, coronary artery disease, cerebrovascular accident, sudden cardiac , thyroid disorders, liver disease, lung disease. PAST SURGICAL HISTORY: Unremarkable. FAMILY HISTORY: Positive for hypertension, diabetes mellitus. SOCIAL HISTORY: The patient currently lives in [place], [place], and originally from [place]. He is . He has a daughter who is a nurse, and she lives in [place]. He denies smoking. He drinks wine at times. ALLERGIES: To CLONIDINE. CURRENT MEDICATIONS: - diltiazem 180 mg by mouth daily in the morning - metoprolol succinate 50 mg by mouth nightly - furosemide 80 mg by mouth daily Earlier this afternoon, he had received metoprolol succinate 50 mg as an extra dose as well as a dose of amiodarone 150 mg IV. PHYSICAL EXAMINATION: The patient is alert and oriented, in no acute distress at rest and his last blood pressure around 4:00 p.m. was 128/100 with a pulse of 116, respirations 20 and his temperature was 96.5 degrees Fahrenheit with an oxygen saturation of 97% on room air. I took the blood pressure myself with a manual cuff; it was 120/90. Examination of the head, ears, eyes, nose and throat: Atraumatic. Neck is supple, no jugular venous distention (JVD). The lungs did not reveal any wheezing or crackles. The heart examination revealed irregularly irregular heart sounds without gallops. The point of maximum impulse (PMI) is slightly displaced inferiorly and laterally. There is no rub. There is a systolic murmur, grade 1-2 over 6 at the lower left sternal border and at the apex, some radiation to the axilla. Abdomen is soft and nontender. Bowel sounds are active. Extremities revealed trace to +1 bilateral lower leg and ankle edema. Neurologic examination is negative for focal deficit. Peripheral pulses, radial pulses were +2 and equal. LABORATORY: BMP done today revealed a sodium of 139, potassium 4.2, chloride 106, CO2 18, BUN 76, creatinine 4.88, GFR 13.0, fasting glucose 88 and calcium 8.5. Serum magnesium is 2.4. Liver enzymes revealed a total bilirubin of 1.3, AST 16, ALT 25, alkaline phosphatase 74, total protein 6.1, albumin 2.9. Serum troponin is 0.04, 0.04, 0.04 and 0.02. Serum BNP on admission was 2320. Serum TSH is 2.99 with a free T4 of 2.2 and a T4 of 5.3. T3 uptake is 41. BUN and creatinine on admission 11/10/2016 were 72 and 5.18 respectively with a GFR of 12.1. Serum magnesium was 2.4. CBC done today revealed a WBC of 6.2, hemoglobin 12.9, hematocrit 40.3 and platelets 155,000. PT was 16.1 with an INR of 1.28, done on 11/11/2016. Urinalysis revealed +2 protein and +1 blood and +4 RBCs. Duplex of the lower extremities was negative for deep vein thrombosis (DVT), done on 11/10/2016. Chest x-ray done on 11/10/2016, revealed right lower lobe atelectasis and cardiomegaly. No manifestation of heart failure. A chest CT without contrast done on 11/11/2016 revealed aortic aneurysm and possible dissection involving the aortic arch to the descending thoracic aorta and a CT angio was recommended. There was bilateral pleural effusion and atelectasis. EKG on 11/10/2016 revealed atrial fibrillation at 114 beats per minute and nonspecific ST-T abnormalities noted in the lateral leads, mild IVCD, poor R wave progression. IMPRESSION: A 61-year-old male with a history of type B dissection and extensive aortic aneurysm, hypertension, chronic kidney disease, moderate valvular heart disease, was admitted with atrial fibrillation with a rapid ventricular rate. His heart rate has improved but still not quite under control. The patient is being monitored at the present time by concrete float maker at [facility], Dr. Garcia, and he will continue to followup with him. In the meantime, his AV blocking agent will be readjusted in order to better control his heart rate Amiodarone will be given as needed. I will decrease the furosemide in view of his underlying kidney function, and he will be monitored. He will need further cardiac workup and as mentioned above, he is thinking about proceeding with ablation for the atrial fibrillation. He also will continue to follow with his vascular and cardiothoracic surgeon in [place] at [facility]. It was a pleasure to participate in the care of Mr. Jefe Rg for his underlying cardiac condition. I will continue to monitor him along with you while in the hospital and as an outpatient if needed. Not mentioned above, he would have benefited from an angiotensin-converting enzyme (LEWIS) inhibitor or an angiotensin receptor junior (ARB) but will stay away from them in view of his underlying renal function.
[2016-11-11] MEDS: METOPROLOL SUCC (TopROL XL) 50MG **XL** TAB PO SCH (20:57)
--- NOTE | 2016-11-11 22:29 | IPNPDOC ---
Date Seen The patient was seen on 11/11/16. Progress Note SUBJECTIVE: Was called on patient because of anxiety. He said that he was trying to keep from having a panic attack. Reports history of heavy social drinking. OBJECTIVE PHYSICAL EXAMINATION: VITAL SIGNS: Please see below. GENERAL: appears anxious, was on the floor with his head on the bed. was cooperative ASSESSMENT AND PLAN: 61 y/o male admitted with SOB. Currently appears anxious. I gave him one dose of Xanax earlier which settled his anxiety, but he continued to become anxious after several hours. Reviewing his history of drinking, I question whether he is having withdraw symptoms. I will start him on a low dose of Serax for anxiety and possible ETOH withdraw. We will monitor him closely overnight. Patient was also started on Senokot S as he has not had a BM in days. GME ATTESTATION My preceptor for this patient encounter was physically present in the building during the encounter and was fully available. As needed, all aspects of the patient interview, examination, medical decision making process, and medical care plan development were reviewed and approved by the preceptor. Preceptor is aware and concurs with the plan as stated in the body of this note and will attest to such by his/her cosignature. VS, I&O, 24H, [place] Vital Signs/I&O Vital Signs Date Time Temp Pulse Resp B/P Pulse Ox O2 Delivery O2 Flow Rate FiO2 11/11/16 21:00 95.9 117 18 125/100 97 Room Air I&O- Last 24 Hours up to 6 AM 11/11/16 06:00 Intake Total 120 ml Output Total 200 ml Balance -80 ml Laboratory Data 24H LABS Laboratory Tests 2 11/10/16 23:18: Troponin I 0.04 11/11/16 05:33: Troponin I 0.04, Blood Urea Nitrogen 76H, Creatinine 4.88H, Sodium Level 139, Potassium Level 4.2, Chloride Level 106, Carbon Dioxide Level 18L, Calcium Level 8.5L, Phosphorus Level 4.9, Aspartate Amino Transf (AST/SGOT) 16, Alanine Aminotransferase (ALT/SGPT) 25, Alkaline Phosphatase 74, Total Bilirubin 1.3H, Total Protein 6.1L, Albumin 2.9L, Albumin/Globulin Ratio 0.91L, Anion Gap 15, White Blood Count 6.2, Red Blood Count 4.34, Hemoglobin 12.9L, Hematocrit 40.3L , Mean Corpuscular Volume 92.7, Mean Corpuscular Hemoglobin 29.8, Mean Corpuscular Hemoglobin Concent 32.2, Red Cell Distribution Width 13.6, Platelet Count 155, Neutrophils (%) (Auto) 63.6, Lymphocytes (%) (Auto) 21.6L, Monocytes (%) (Auto) 9.9H, Eosinophils (%) (Auto) 1.6, Basophils (%) (Auto) 0.7, Neutrophils # (Auto) 4.0, Lymphocytes # (Auto) 1.5, Monocytes # (Auto) 0.6, Eosinophils # (Auto) 0.1, Basophils # (Auto) 0.0, Glomerular Filtration Rate 13.0L, Large Unclassified Cells # 0.2, Large Unclassified Cells % 2.7, Magnesium Level 2.4 11/11/16 14:26: Urine Amorphous Sediment , Urine Appearance CLEAR, Urine Color YELLOW, Urine pH 5.0, Urine Specific [place] 1.009, Urine Protein 2+H, Urine Glucose (UA) NEGATIVE, Urine Ketones NEGATIVE, Urine Urobilinogen 0.2, Urine Bilirubin NEGATIVE, Urine Leukocyte Esterase NEGATIVE, Urine Bacteria (Auto) NEGATIVE, Urine Blood 1+H, Urine Calcium Carbonate Cryst(Auto) , Urine Calcium Oxalate Cryst (Auto) , Urine Calcium Phosphate Michelle (Auto) , Urine Cellular Casts , Urine Cystine Crystals , Urine Granular Casts (Auto) , Urine Hyaline Casts (Auto ) 0, Urine Leucine Crystals , Urine Mucus (Auto) SMALL, Urine Nitrite NEGATIVE, Urine Oval Fat Bodies (Auto) , Urine RBC (Auto) 4H, Urine Renal Epithelial Cells , Urine Sperm (Auto) , Urine Squamous Epithelial Cells 0, Urine Transitional Epithelial Cells , Urine Trichomonas (Auto) , Urine Triple Phosphate Cryst (Auto) , Urine Tyrosine Crystals , Urine Uric Acid Crystals ( Auto) , Urine WBC (Auto) 0, Urine Waxy Casts (Auto) , Urine Yeast-Like Cells ( Auto) 11/11/16 15:00: Troponin I 0.02#, Prothromb Time International Ratio 1.28, Prothrombin Time 16.1H CBC/BMP Laboratory Tests 11/11/16 05:33 Calcium Level 8.5 L, Phosphorus Level 4.9, Aspartate Amino Transf (AST/SGOT) 16 , Alanine Aminotransferase (ALT/SGPT) 25, Alkaline Phosphatase 74, Total Bilirubin 1.3 H, Total Protein 6.1 L, Albumin 2.9 L, Red Blood Count 4.34, Mean Corpuscular Volume 92.7, Mean Corpuscular Hemoglobin 29.8, Mean Corpuscular Hemoglobin Concent 32.2, Red Cell Distribution Width 13.6, Neutrophils (%) (Auto ) 63.6, Lymphocytes (%) (Auto) 21.6 L, Monocytes (%) (Auto) 9.9 H, Eosinophils ( %) (Auto) 1.6, Basophils (%) (Auto) 0.7, Neutrophils # (Auto) 4.0, Lymphocytes # (Auto) 1.5, Monocytes # (Auto) 0.6, Eosinophils # (Auto) 0.1, Basophils # ( Auto) 0.0 Microbiology Microbiology 11/10/16 Blood Culture - Preliminary, Resulted No growth after 24 hours . All specim... 11/10/16 Blood Culture - Preliminary, Resulted No growth after 24 hours . All specim... SINAI FELTON DO Nov 11, 2016 22:29 YAMILET ANTHONY MD Nov 11, 2016 23:06
[2016-11-11] MEDS ORDERED: OXAZEPAM 10 MG CAP PO PRN (22:30)
[2016-11-11] MEDS: SENOKOT S TAB PO SCH (22:30)
--- NOTE | 2016-11-11 23:50 | CR ---
DATE OF CONSULTATION: 11/11/2016 REQUESTING PHYSICIAN: Dr. Jefe Motley CONSULTING PHYSICIAN: Dr. Wade REASON FOR CONSULTATION: Management of acute kidney injury superimposed on chronic kidney disease. CHIEF COMPLAINT: The patient presented to the hospital with shortness of breath, panic attack and atrial fibrillation with rapid ventricular rate (RVR). HISTORY OF THE PRESENT ILLNESS: Mr. Jefe Rg is a 61-year-old male with a past medical history of chronic kidney disease, large stage IV to early stage V. He follows up with Dr. Roberts who is a dish cloth inspector in [place]. And as per patient , he has been told in the past that he is close to needing dialysis, but he is medically managed at this time. The patient has multiple other comorbidities including hypertension, type B aortic dissection, and as reported by the patient , he has a dissection starting from his chest all the way up to his groin . The patient has atrial fibrillation with RVR. He is being evaluated by cardiac scrap drop operator in [place]. While he was coming back after cardiac evaluation, on the highway, the patient had a panic attack, rapid heart rate, shortness of breath. The patient drove himself to the emergency room yesterday. He was found to have tachycardia with a pulse rate of 120s to 130s. The patient was admitted under hospitalist service. He was found to have a creatinine of 5.18 with a GFR of 12 on admission. Nephrology service was called for further management of acute kidney injury superimposed on chronic kidney disease. PAST MEDICAL HISTORY: Atrial fibrillation. Hypertension. Type B aortic dissection and aortic aneurysm. Chronic kidney disease, most likely stage IV. Anxiety disorder. PAST SURGICAL HISTORY: No surgeries in the past. ALLERGIES: CLONIDINE which causes neurological symptoms. FAMILY HISTORY: Significant family history of heart disease, strokes, and her mother had end-stage renal disease and dialysis was refused and she of renal failure. SOCIAL HISTORY: The patient just moved to the area. He used to live in [place] before. He is a final inspector paper. He lives alone. He denies any smoking, drug abuse or alcohol abuse. REVIEW OF SYSTEMS: CONSTITUTIONAL: The patient reports anxiety. Otherwise, her denies any fever, chills, or rigors. EYES: He denies any blurry vision or double vision. ENT: He denies any dysphagia, odynophagia or ear discharge. CARDIOVASCULAR: He reports palpitations, atrial fibrillation, irregular heart rate. RESPIRATORY: He reported some shortness of breath when he arrived in the emergency room, and he also gives a history of a pleural effusion in the past which required drainage. GASTROINTESTINAL: He denies any nausea, vomiting, constipation. GENITOURINARY: He denies any dysuria, hematuria but he reports a history of chronic kidney disease. MUSCULOSKELETAL: He denies any muscle aches and pains. CENTRAL NERVOUS SYSTEM: He denies any history of strokes or seizures. PSYCHIATRIC: He reports a history of anxiety. HEMATOLOGIC/ONCOLOGIC: He denies any history of anemia or cancers. ENDOCRINE: He denies any history of hyper or hypothyroidism or any diabetes. SKIN: He denies any history of rashes or ulcers. All other review of systems is negative. PHYSICAL EXAMINATION: GENERAL: The patient is awake, alert, oriented times three, sitting in the bed, no apparent distress . VITAL SIGNS: Temperature is 95.9 degrees Fahrenheit, blood pressure is 125/100, pulse is 117, respiratory rate of 18, saturating 97% on room air. INTAKE/OUTPUT: Urine output recorded so far since overnight is 1250 mL. HEAD AND NECK EXAM: Extraocular muscles intact. Pupils equally round and reactive to light. Neck is supple. There is no jugular venous distention (JVD). CARDIOVASCULAR: S1, S2, irregularly irregular. Heart rate tachycardic. RESPIRATORY: Chest is clear to auscultation bilaterally. Bilateral equal air entry. No rales or rhonchi. ABDOMEN: Soft. Positive bowel sounds. Nontender, no ascites. No organomegaly. EXTREMITIES: No clubbing or cyanosis. Trace edema of the bilateral lower extremities. CENTRAL NERVOUS SYSTEM: No focal neurological deficit. Power is 5/5 in all extremities. PSYCHIATRIC: Normal mood and affect. SKIN: No rashes or ulcers. LAB REVIEW: CBC showed a WBC of 6.2, hemoglobin 12.9, platelets are 155. INR is 1.28. Urinalysis showed it had 2+ protein, 1+ blood. Nitrite and leukocyte esterase were negative. BMP done today, morning, showed sodium 139, potassium 4.2, chloride 106, bicarbonate is 18, BUN 76, creatinine 4.8, it was 5.1 yesterday, calcium 8.5, total bilirubin 1.3, troponin 0.04, albumin 2.9. TSH was 2.9. Microbiology: Blood cultures are negative so far. IMAGING: CT scan of the chest done today showed aortic aneurysm and possible dissection involving the aortic arch through descending thoracic aorta, bilateral pleural effusions and atelectasis, right greater than left. CURRENT MEDICATIONS: The patient's medications were all reviewed by me. I see that he has been given amiodarone boluses. He is on Xanax as needed for anxiety, diltiazem 180 mg by mouth daily, Senokot one tablet by mouth twice a day, metoprolol 50 mg by mouth nightly, oxazepam 10 mg every 4 hours as needed for anxiety. ASSESSMENT: A 61-year-old male with a past medical history of hypertension, type B aortic dissection and aortic aneurysm, anxiety disorder, chronic kidney disease, most likely stage IV, admitted at this time to the hospital with atrial fibrillation with RVR, shortness of breath and acute kidney injury superimposed on chronic kidney disease. PLAN: 1. Acute kidney injury superimposed on chronic kidney disease, most likely is cardiorenal in nature. The patient is in rapid atrial fibrillation. The patient' s heart rate needs to be controlled at this time. The patient already follows up with a dish cloth inspector in [place], Dr. Roberts. I would not start the extensive workup at this time. The patient also reported to me that he is close to needing dialysis but he would absolutely refuse dialysis if that were needed in the future, even if it meant worsening of his clinical status or even . At this time, I would recommend optimizing the patient's heart rate. The patient is already on Lasix 80 mg by mouth daily and he got the morning dose today. I do not see any signs of fluid overload in the patient. Cardiology has already stopped Lasix. I will evaluate the patient tomorrow morning for any need of diuretic in the patient. 2. Hypertension. The patient's blood pressure is still uncontrolled. I see the patient is already on metoprolol 50 mg by mouth nightly and diltiazem 180 mg by mouth daily. In the setting of aortic dissection, I would avoid giving hydralazine to this patient. If the patient's blood pressure is not well controlled, then doxazosin or minoxidil can be given to the patient. 3. Atrial fibrillation with rapid ventricular rate. The patient is already on diltiazem and metoprolol, which have not controlled his heart rate. He has already seen scrap drop operator at [place] who has recommended cardioversion versus ablation. He has already been given amiodarone as well. The rest of the management is as per cardiology team. 4. Metabolic acidosis. Acidosis is secondary to acute kidney injury. Bicarbonate is 18. I would start Bicitra in this patient. 5. Aortic dissection and aortic aneurysm. The patient has been extensively evaluated by CT surgeons in the past, and he has been told that he is not a surgical candidate. I would avoid doing further CT scans with IV contrast in this patient in the setting of acute renal failure. 6. Secondary hyperparathyroidism. I will check the PTH in this patient in the morning. Thank you for involving us in the care of this patient. We shall be happy to follow the patient along with you tomorrow morning. The plan of care was discussed with Dr. Jefe Motley. KAVON
[2016-11-12 00:33] VITALS: BP 130/110
[2016-11-12 05:42] VITALS: BP 131/97
[2016-11-12 05:57] LABS: BASO # 0.1 K/mm3 (0.0-0.2); BASO % 0.9 % (0.0-1.0); EOS # 0.1 K/mm3 (0.0-0.50); EOS % 1.6 % (0.0-3.0); LARGE UNSTAINED CELL # 0.2 K/mm3 (0.0-0.4); LARGE UNSTAINED CELL % 3.5 % (0.0-4.0); LYMPH # 1.5 K/mm3 (1.5-4.5); MEAN CORPUSCULAR HGB CONC 32.6 g/dl (32.0-36.5); MEAN CORPUSCULAR VOLUME 92.1 fl (80.0-96.0); MONO # 0.7 K/mm3 (0.0-0.8); MONO % 10.3 % (0.0-5.0); NEUTROPHILS # 4.1 K/mm3 (1.8-7.7); NEUTROPHILS % 63.7 % (36.0-66.0); PLATELET COUNT, AUTOMATED 175 k/mm3 (150-450); RED CELL DISTRIBUTION WIDTH 13.7 % (11.5-14.5); WHITE BLOOD COUNT 6.5 K/mm3 (4.0-10.0)
[2016-11-12] MEDS: SLF 3 ML SYR IV SCH ×3 (06:00→20:43)
[2016-11-12 06:01] LABS: INR 1.29
[2016-11-12 06:14] LABS: ALBUMIN 3.1 GM/DL (3.2-5.2); CALCIUM LEVEL 8.5 MG/DL (8.8-10.2); CREATININE FOR GFR 5.2 MG/DL (0.70-1.30); GLOMERULAR FILTRATION RATE 12.1 (>49); MAGNESIUM LEVEL 2.6 MG/DL (1.8-2.4); POTASSIUM SERUM 4.5 MEQ/L (3.5-5.1); TOTAL PROTEIN 6.2 GM/DL (6.4-8.2)
[2016-11-12 08:00] VITALS: BP_SYST 110; BP_SYST 142; BP_DIAS 92
[2016-11-12] MEDS ORDERED: OXAZEPAM 10 MG CAP PO PRN (08:15)
[2016-11-12] MEDS: SENOKOT S TAB PO SCH ×2 (08:20→20:42)
[2016-11-12] MEDS: diltiaZEM **CD** 180 MG CAP PO SCH (08:20)
--- NOTE | 2016-11-12 08:25 | IPNPDOC ---
Subjective Date Seen The patient was seen on 11/12/16. Subjective Chief Complaint/HPI The patient is a 61-year-old male admitted with a reason for visit of SOB. General: Denies: Chills, Fatigue, Malaise, Night Sweats, Normal Appetite, Other Symptoms, ROS Unobtainable Constitutional: Denies: Chills, Fatigue, Fever, Lethargy, Malaise, Night Sweats , Other, Weakness, Weight Loss Eyes: Denies: Conjunctivae inflammation, Eyelid inflammation, Other, Pain, Redness, Vision change ENT: Denies: Dysphagia, Ear Pain, Epistaxis, Head Aches, Other Symptoms, Post Nasal Drip, Sinus Congestion, Sore Throat Skin: Denies: Breakdown, Bruising, Dry, Itching, Jaundice, Lesions, Nail Changes, Other, Rash Pulmonary: Denies: Cough, Dyspnea, Other Symptoms, Pleuritic Chest Pain Cardiovascular: Denies: Chest Pain, Edema, Lt Headedness, Orthopnea, Other Symptoms, Palpitations, Paroxysmal Noc. Dyspnea Gastrointestinal: Denies: Abdominal Pain, Constipation, Diarrhea, Hematochezia , Melena, Nausea, Other Symptoms, Vomiting Psych: Reports: Anxiety Objective Physical Examination General Exam: Positive: Alert, Cooperative, No Acute Distress Eye Exam: Positive: Conjunctiva & lids normal, EOMI, PERRLA, Negative: Sclera icteric ENT Exam: Positive: Atraumatic, Mucous membr. moist/pink Neck Exam: Positive: Supple Chest Exam: Positive: Clear to auscultation, Normal air movement Heart Exam: Positive: Irregular Rhythm, Tachycardic Telemetry: Positive: Atrial fibrillation Abdomen Exam: Positive: Normal bowel sounds, Soft, Negative: Tenderness Psych Exam: Positive: Anxiety, Oriented x 3 Assessment /Plan Problems (1) Chest pain Status: Resolved Discussed With: Substation Operator Transforming, Patient Problem Specific Plan: Consult Specialist, Monitor Clinically Problem Text: Troponins negative. Cardiology consultation appreciated. Further discussion with patient it appears he likely never actually had chest pains, but more consistent with panic/anxiety. (2) Afib Status: Chronic Response to Treatment: Progressing Discussed With: Substation Operator Transforming, Patient Problem Specific Plan: Consult Specialist, Monitor Clinically Problem Text: rate not controlled - RVR. Increased beta blockade. Discussed with his aml analyst Dr. Garcia - dosing was increased to 100mg daily Toprol XL. D/w Dr. Hall, assistance greatly appreciated. (3) Anxiety Status: Chronic Discussed With: Patient Problem Specific Plan: Monitor Clinically Problem Text: Possibly secondary to EtOH abuse. Serax as needed. BB increased. (4) Shortness of breath Status: Chronic Discussed With: Patient Problem Specific Plan: Monitor Clinically Problem Text: Appears to be related to anxiety/panic attacks. Also likely KAYLA. States he was previously scheduled for sleep study however did not attend his appointment. Will check nocturnal oximetry. (5) HTN (hypertension) Status: Chronic Problem Specific Plan: Monitor Clinically Problem Text: BB increased, CCB. (6) Aortic dissection Status: Chronic Problem Text: Known history of chronic type B aortic dissection. Also known history of thoracic aortic aneurysm 5.2-5.4. CT chest noted. Blood pressure control. Discussed with aml analyst Dr. Garcia and vascular surgeon Dr. Goodwin from [place]. Not a surgical candidate. (7) CKD (chronic kidney disease) Status: Chronic Problem Specific Plan: Consult Specialist, Repeat Labs Problem Text: baseline CKD IV-V discussed with nephrology, consultation appreciated reviewed records from [place], does appear essentially at baseline. He is not interested in dialysis if ever needed. Plan/VTE VTE Prophylaxis Ordered?: Yes Plan Diet: Continue Current Activity: Continue Current, Encourage Ambulation Diagnostics: Repeat Labs in AM, EKG Anticipated Discharge: Home Advance Directives: DNR Continue with beta blockade for rate control. Discussed at length with patient at bedside. He is aware of his very guarded prognosis. He has opted for DNR/DNI status. His previous medical history suggested alcohol abuse although he denies. He stated he had excellent response to xanax administered yesterday for agitation. VS, I&O, 24H, [facility] Vital Signs/I&O Vital Signs Date Time Temp Pulse Resp B/P Pulse Ox O2 Delivery O2 Flow Rate FiO2 11/12/16 05:42 95.7 120 18 131/97 98 Room Air I&O- Last 24 Hours up to 6 AM 11/12/16 06:00 Intake Total 1480 ml Output Total 1600 ml Balance -120 ml Laboratory Data 24H LABS Laboratory Tests 2 11/11/16 14:26: Urine Amorphous Sediment , Urine Appearance CLEAR, Urine Color YELLOW, Urine pH 5.0, Urine Specific [place] 1.009, Urine Protein 2+H, Urine Glucose (UA) NEGATIVE, Urine Ketones NEGATIVE, Urine Urobilinogen 0.2, Urine Bilirubin NEGATIVE, Urine Leukocyte Esterase NEGATIVE, Urine Bacteria (Auto) NEGATIVE, Urine Blood 1+H, Urine Calcium Carbonate Cryst(Auto) , Urine Calcium Oxalate Cryst (Auto) , Urine Calcium Phosphate Michelle (Auto) , Urine Cellular Casts , Urine Cystine Crystals , Urine Granular Casts (Auto) , Urine Hyaline Casts (Auto ) 0, Urine Leucine Crystals , Urine Mucus (Auto) SMALL, Urine Nitrite NEGATIVE, Urine Oval Fat Bodies (Auto) , Urine RBC (Auto) 4H, Urine Renal Epithelial Cells , Urine Sperm (Auto) , Urine Squamous Epithelial Cells 0, Urine Transitional Epithelial Cells , Urine Trichomonas (Auto) , Urine Triple Phosphate Cryst (Auto) , Urine Tyrosine Crystals , Urine Uric Acid Crystals ( Auto) , Urine WBC (Auto) 0, Urine Waxy Casts (Auto) , Urine Yeast-Like Cells ( Auto) 11/11/16 15:00: Prothromb Time International Ratio 1.28, Prothrombin Time 16.1H, Troponin I 0.02 # 11/12/16 05:41: Prothromb Time International Ratio 1.29, Prothrombin Time 16.2H, Blood Urea Nitrogen 80H, Creatinine 5.20H, Sodium Level 141, Potassium Level 4.5, Chloride Level 105, Carbon Dioxide Level 24, Calcium Level 8.5L, Aspartate Amino Transf ( AST/SGOT) 17, Alanine Aminotransferase (ALT/SGPT) 38, Alkaline Phosphatase 89, Total Bilirubin 1.0, Total Protein 6.2L, Albumin 3.1L, Albumin/Globulin Ratio 1.00, Anion Gap 12, White Blood Count 6.5, Red Blood Count 4.64, Hemoglobin 13.9L, Hematocrit 42.7, Mean Corpuscular Volume 92.1, Mean Corpuscular Hemoglobin 30.0, Mean Corpuscular Hemoglobin Concent 32.6, Red Cell Distribution Width 13.7, Platelet Count 175, Neutrophils (%) (Auto) 63.7, Lymphocytes (%) (Auto) 20.0L, Monocytes (%) (Auto) 10.3H, Eosinophils (%) (Auto ) 1.6, Basophils (%) (Auto) 0.9, Neutrophils # (Auto) 4.1, Lymphocytes # (Auto) 1.5, Monocytes # (Auto) 0.7, Eosinophils # (Auto) 0.1, Basophils # (Auto) 0.1, Glomerular Filtration Rate 12.1L, Large Unclassified Cells # 0.2, Large Unclassified Cells % 3.5, Magnesium Level 2.6H CBC/BMP Laboratory Tests 11/12/16 05:41 Calcium Level 8.5 L, Aspartate Amino Transf (AST/SGOT) 17, Alanine Aminotransferase (ALT/SGPT) 38, Alkaline Phosphatase 89, Total Bilirubin 1.0, Total Protein 6.2 L, Albumin 3.1 L, Red Blood Count 4.64, Mean Corpuscular Volume 92.1, Mean Corpuscular Hemoglobin 30.0, Mean Corpuscular Hemoglobin Concent 32.6, Red Cell Distribution Width 13.7, Neutrophils (%) (Auto) 63.7, Lymphocytes (%) (Auto) 20.0 L, Monocytes (%) (Auto) 10.3 H, Eosinophils (%) ( Auto) 1.6, Basophils (%) (Auto) 0.9, Neutrophils # (Auto) 4.1, Lymphocytes # ( Auto) 1.5, Monocytes # (Auto) 0.7, Eosinophils # (Auto) 0.1, Basophils # (Auto) 0.1 Microbiology Microbiology 11/10/16 Blood Culture - Preliminary, Resulted No growth after 24 hours . All specim... 11/10/16 Blood Culture - Preliminary, Resulted No growth after 24 hours . All specim... SU BALLESTEROS MD Nov 12, 2016 08:25
[2016-11-12] MEDS ORDERED: METOPROLOL SUCC (TopROL XL) 50MG **XL** TAB PO ONE (08:30)
[2016-11-12 12:00] VITALS: BP 117/86
[2016-11-12] MEDS: CALCITRIOL 0.25 MCG CAP (S0169) PO SCH (12:24)
[2016-11-12] MEDS: FUROSEMIDE 20 MG TAB PO SCH (12:24)
--- NOTE | 2016-11-12 15:03 | ECGEPIP ---
Stationary ECG Study 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
[2016-11-12 16:00] VITALS: BP 110/78
[2016-11-12 19:33] VITALS: BP_SYST 130; BP_SYST 137; BP_DIAS 109; BP_DIAS 110
[2016-11-12] MEDS: METOPROLOL SUCC (TopROL XL) 100MG *XL* TAB PO SCH (20:42)
--- NOTE | 2016-11-12 20:55 | IPN ---
DATE: 11/12/2016 SUBJECTIVE: The patient was seen and examined at the bedside today in the morning. He reports that he felt better as compared to yesterday. His heart rate is slightly better controlled today. His pulse is in the 100s right now. His blood pressure is also improved as compared with yesterday; however, his creatinine slightly bumped up to 5.2. GFR is still in chronic kidney disease stage V range. REVIEW OF SYSTEMS: The patient denies any fevers, chills, rigors, headache, nausea, vomiting, or chest pain. He reports that his shortness of breath is better, and he denies any palpitations. He denies any nausea, vomiting, pain in the abdomen, constipation. The rest of the review of systems is negative. OBJECTIVE: VITAL SIGNS: Temperature is 97.5 degrees Fahrenheit, blood pressure is 110/78, pulse is 91, respiratory rate of 18, saturating 97% on room air. INTAKE/OUTPUT: Urine output recorded is 1250 mL yesterday. 1550 mL so far today since overnight. Weight on the bed scale is 95.3 kg. PHYSICAL EXAMINATION: GENERAL: The patient is awake, alert, and oriented times three. Sitting in the bed. No apparent distress. HEAD AND NECK EXAM: Extraocular muscles intact. Pupils equally round and reactive to light. Mucous membranes are moist. Neck is supple. There is slightly elevated jugular venous distention (JVD). CARDIOVASCULAR: S1, S2, irregularly irregular. Heart rate slightly tachycardic. RESPIRATORY: Chest is clear to auscultation bilaterally. Bilateral equal air entry. Mild crepitations at the bases on deep inspiration. ABDOMEN: Soft. Positive bowel sounds. Nontender. No ascites. No organomegaly. EXTREMITIES: No clubbing or cyanosis. Pulses are 2+. The patient has trace edema of the bilateral lower extremities. CENTRAL NERVOUS SYSTEM: No focal neurological deficit. Power is 5/5 in all extremities. PSYCHIATRIC: Normal mood and affect. LAB REVIEW: Complete blood count (CBC) showed a WBC of 6.5, hemoglobin 13.9, platelets are 175. Basic metabolic panel (BMP) showed sodium 141, potassium 4.5, chloride 105, bicarbonate 24, BUN is 80, creatinine is 5.2, GFR is 12, calcium is 8.5, magnesium is 2.6. PTH is 295. Microbiology: Blood cultures are negative so far. CURRENT MEDICATIONS: The patient's medications were all reviewed by me. He was given one dose of Xanax as needed yesterday for anxiety. I started him in calcitriol 0.25 mcg by mouth Tuesday, Tuesday, Tuesday. He has been started on lower dose Lasix 60 mg by mouth daily. His metoprolol dose has been increased to 100 mg at night. He has been started on oxazepam 10 mg by mouth every 8 hours as needed for agitation. ASSESSMENT: 61-year-old male with a past medical history of hypertension, type B aortic dissection and aortic aneurysm, anxiety disorder, chronic kidney disease, late stage IV to early stage V, admitted at this time to the hospital with atrial fibrillation with RVR, shortness of breath and acute kidney injury superimposed on chronic kidney disease. PLAN: 1. Acute kidney injury superimposed on chronic kidney disease, most likely is cardiorenal in nature. The patient came in with rapid atrial fibrillation with rapid ventricular rate and fluid overload. He was given a dose of Lasix yesterday. The patient follows up with Dr. Roberts in [place], and the patient reported to me that he was already told that he is almost close to needing dialysis, but he does not want dialysis and he has already had this discussion with his chief safety officer as an outpatient. The patient does not have any signs or symptoms of uremia. His appetite is good. Electrolytes are acceptable. No urgent need of hemodialysis at this time. 2. Hypertension. The patient blood pressure is better controlled today. He is currently on diltiazem 180 mg by mouth daily and metoprolol XL 100 mg by mouth at night. Both of these medications are helping with his blood pressure and atrial fibrillation as well. Adjustment of antihypertensive medications will be up to cardiology at this point. 3. Atrial fibrillation with rapid ventricular rate. The patient was given IV amiodarone yesterday, which helped lower his heart rate. He has already been seen by cardiac rock crusher as an outpatient. He is currently on diltiazem and metoprolol. If needed, the patient can be started on lower dose amiodarone as well. 4. Metabolic acidosis. The patient's bicarbonate level was low yesterday; however, repeat laboratories have shown that his bicarbonate is 24 at this time. There is no need to start bicarbonate or Bicitra at this time. 5. Secondary hyperparathyroidism and chronic kidney disease. PTH is 295 at this time. I have started the patient on Calcitriol 0.25 mcg by mouth Tuesday, Tuesday, Tuesday. 6. Shortness of breath. When patient arrived, he was slightly decompensated because of atrial fibrillation, rapid ventricular rate. His Lasix dose was 80 mg as an outpatient. I am going to start a lower dose of Lasix 60 mg by mouth daily from now. Continue to monitor daily weight and intake and output.
[2016-11-12] MEDS ORDERED: AMIODARONE HCL 150 MG in APPROPRIATE DILUENT 1 EA IV ONE (21:00)
[2016-11-12] MEDS ORDERED: ALPRAZolam 0.5 MG TAB PO ONE (21:45)
[2016-11-12] MEDS ORDERED: ALPRAZolam 0.5 MG TAB PO PRN (21:45)
--- NOTE | 2016-11-12 23:23 | EDDOCDS ---
Physician Documentation [facility] Name: Jefe Rg Age: 61 yrs Sex: Male : 1955 Arrival Date: 11/10/2016 Time: 15:00 Bed Admit Hold Private MD: Disposition: 11/10/16 17:08 Hospitalization ordered by Jimi Mary for Inpatient Admission. Preliminary diagnosis are Unspecified atrial fibrillation, Acute kidney failure, Acute diastolic (congestive) heart failure. - Bed requested for PCU. - Status is Inpatient Admission. mv5 - Condition is Stable. - Problem is new. - Symptoms are unchanged. Historical: - Allergies: Clonidine (aphasia and dizziness); - Home Meds: 1. diltiazem HCl 180 mg Oral cpER 1 cap once daily (Last dose: 11/10/2016 06:30) 2. furosemide 40 mg Oral tab 2 tabs once daily (Last dose: 11/07/2016) 3. metoprolol ER 50 mg nightly (Last dose: 11/09/2016 22:30) 4. advil cold and flu Unknown 1 cap twice a day (Last dose: 11/10/2016 06:30) - PMHx: Hypertension; aortic dissection; aoritic aneurism; Atrial Fib; kidney disease; - PSHx: none; - Social history: Smoking status: Patient states was never smoker of tobacco. Patient uses No barriers to communication noted, The patient speaks fluent Indonesian. - Family history: No immediate family members are acutely ill. - : The pt / caregiver states he / she is not on anticoagulants. Home medication list is obtained from patients' pharmacy. - Exposure Risk Screening:: None identified. Vital Signs: 11/10 15:06 BP 128 / 112; Pulse 124; Resp 24; Pulse Ox 99% on R/A; elp 15:34 Temp 97.2; ja5 15:42 BP 117 / 76 (auto/); ja5 15:42 Pulse 100 MON; Pulse Ox 79% ; ja5 15:44 BP 117 / 83 (auto/); ja5 15:44 Pulse 108 MON; Pulse Ox 97% ; ja5 16:02 BP 122 / 90 (auto/); ja5 16:02 Pulse 106 MON; Pulse Ox 95% ; ja5 16:12 Pulse 118 MON; Pulse Ox 96% ; ja5 16:14 BP 128 / 100 (auto/); ja5 16:29 BP 112 / 80 (auto/); ja5 16:29 Pulse 110 MON; ja5 16:43 Pulse 124 MON; ja5 16:44 BP 164 / 85 (auto/); ja5 17:02 BP 135 / 80 (auto/); ja5 17:02 Pulse 124 MON; ja5 17:40 Weight 99.79 kg / 220 lbs; Height 5 ft. 9 in. (175.26 cm); ja5 18:50 BP 137 / 119; Pulse 113; Resp 24; Temp 97.5(O); Pulse Ox 95% on R/A; Pain 0/10; ja5 19:14 BP 127 / 105 (auto/); mv5 19:15 BP 127 / 105; Pulse 126 MON; Resp 18; Temp 96.8(O); Pulse Ox 94% ; mv5 19:29 BP 158 / 119 (auto/); mv5 19:30 Pulse 122 MON; Pulse Ox 96% ; mv5 19:44 BP 156 / 104 (auto/); mv5 19:44 Pulse 122 MON; Pulse Ox 92% ; mv5 19:57 BP 135 / 101 (auto/); mv5 19:58 Pulse 118 MON; Pulse Ox 97% ; mv5 19:59 BP 135 / 119 (auto/); mv5 20:00 Pulse 116 MON; Pulse Ox 96% ; mv5 20:14 BP 132 / 109 (auto/); mv5 20:15 Pulse 112 MON; Pulse Ox 94% ; mv5 20:45 Pulse 126 MON; Pulse Ox 95% ; mv5 21:00 Pulse 126 MON; Pulse Ox 95% ; mv5 21:15 Pulse 124 MON; Pulse Ox 93% ; mv5 21:30 Pulse 120 MON; Pulse Ox 94% ; mv5 21:46 Pulse 132 MON; Pulse Ox 96% ; mv5 17:40 Body Mass Index 32.49 (99.79 kg, 175.26 cm) [facility] MDM: 15:32 -Blood Culture (Adults Only), peripheral from different site, or from device/port/PICC sd1 etc. if present ordered. 15:32 Bridge Ironworker/Pulse Ox/q 15 min VS ordered. sd1 15:32 IV Saline Lock ordered. sd1 15:32 Rhythm Strip to chart ordered. sd1 15:34 Chest, 2 View (pa\E\lat) Ordered. EDMS 15:34 -Blood Culture Ordered. EDMS 15:34 B-Type Natiuretic Peptide Ordered. EDMS 15:34 Basic Metabolic Profile Ordered. EDMS 15:34 CBC with Diff Ordered. EDMS 15:34 Cardiac Injury Profile Ordered. EDMS 15:34 Troponin Ordered. EDMS 15:34 Thyroid Profile Ordered. EDMS 15:34 Magnesium Level Ordered. EDMS 15:34 ECG WITH READING ER PHYS+CARDIAG ordered. EDMS 15:34 US Lower Extremities Bilateral R/O DVT Ordered. EDMS 15:39 -Blood Culture (Adults Only), peripheral from different site, or from device/port/PICC lbd etc. if present complete. 15:41 Misc Agricultural Equipment Test Engineer Order ordered. sd1 15:42 BLOOD CULTURES Ordered. EDMS 15:48 Misc Agricultural Equipment Test Engineer Order ordered. sd1 16:00 Misc Agricultural Equipment Test Engineer Order complete. lbd 16:00 Misc Agricultural Equipment Test Engineer Order complete. lbd 16:03 ECG WITH READING ER PHYS ordered. EDMS 16:20 Financial registration complete. zo 16:45 B-Type Natiuretic Peptide Reviewed. sd1 16:45 Basic Metabolic Profile Reviewed. sd1 16:45 CBC with Diff Reviewed. sd1 16:45 Magnesium Level Reviewed. sd1 16:45 Troponin Reviewed. sd1 17:02 Urine Random,Creatinine Ordered. EDMS 17:02 Urine Random,Potassium, Ordered. EDMS 17:02 Urine,Osmolality Ordered. EDMS 17:04 Basic Metabolic Profile Reviewed. sd1 17:04 Thyroid Profile Reviewed. sd1 17:04 Magnesium Level Reviewed. sd1 17:04 Cardiac Injury Profile Reviewed. sd1 17:04 Troponin Reviewed. sd1 17:46 Admission / Observation Status ordered. EDMS 17:46 2 GRAM SODIUM DIET ordered. EDMS 17:57 [facility] Payment Agreement was scanned into [employer] and attached to record. zo 18:15 TROPONIN Ordered. EDMS 19:31 CBC WITH DIFFERENTIAL Ordered. EDMS 19:31 COMPLETE COMPHRENSIVE METABOLI Ordered. EDMS 19:31 MAGNESIUM LEVEL Ordered. EDMS 19:31 TROPONIN Ordered. EDMS 21:18 TROPONIN Ordered. EDMS 11/11 18:13 T-Sheet-- Draft Copy was scanned into [employer] and attached to record. klr Signatures: Dispatcher [employer] EDMS Isabel Rodriguez, MD MD sd1 Denia Clark, Maintenance Electrician Unit lbd Silvino Gutierrez RN RN Carlos Petit Kathie klr Andrews, Steven, Vijaya Aragon RN, sa, RN RN ja5 Marisa Elizabeth RN RN mv5 The chart was reviewed and I authenticate all verbal orders and agree with the evaluation and treatment provided.Corrections: (The following items were deleted from the chart) 11/10 18:43 15:32 Oxygen at 4L/Min NC or Home dosage ordered. sd1 jc4 21:18 19:31 TROPONIN ordered. EDMS EDMS Attachments: 17:57 [employer] Payment Agreement zo 11/11 18:13 T-Sheet-- Draft Copy klr Chart Complete MTDD
--- NOTE | 2016-11-12 23:23 | EDDOCDS ---
Nurse's Notes [facility] Name: Jefe Rg Age: 61 yrs Sex: Male : 1955 Arrival Date: 11/10/2016 Time: 15:00 Bed Admit Hold Private MD: Diagnosis: Unspecified atrial fibrillation;Acute kidney failure;Acute diastolic (congestive) heart failure Presentation: 11/10 15:08 Presenting complaint: Patient states: Was driving back from [place] after followup at [address] Garcia of Cardiology, states he began to feel dizzy and short of breath in the car and pulled over. Pt reports he began to panic and felt that he was going to become incontinent. Pt reports that he is "unbelievably short of breath". States both his arms fell "funny" and that he "sort of" has chest pain. Adult Sepsis Screening: The patient does not have new or worsening altered mentation. Patient has a respiratory rate of greater than or equal to 22 (1 point). Systolic blood pressure is greater than 100. Patient has a qSOFA score of 1- Negative Sepsis Screen. Suicide/Homicide risk assessment- the patient denies having any suicidal and/or homicidal ideations and does not present with any other emotional, behavioral or mental health complaints. Status: Patient is not a digital field service technician or dependent. Transition of care: patient was not received from another setting of care. Red Flag criteria, patient assessed and taken directly to a bed. 15:08 Acuity: TIA Level 2 lf1 15:08 Method Of Arrival: Wheelchair [facility] 15:08 Red Flag criteria, patient assessed and taken directly to a bed. Charge notified, pt. 1 taken to room via wheelchair. Primary nurse notified. Triage Assessment: 15:12 General: Appears uncomfortable, Behavior is anxious, restless. Pain: Location: chest, lf1 right arm and left arm Pain currently is 2 out of 10 on a pain scale. Pt Declines HIV testing. Neurological: Level of Consciousness is awake, alert, Oriented to person, place, time, Speech is normal. EENT: No deficits noted. Cardiovascular: Chest pain "sort of". Respiratory: Reports shortness of breath. GI: Denies nausea, vomiting. GI: Reports constipation, decreased appetite and weight loss. : Reports inability to void States he is taking Lasix but is having trouble voiding. Derm: Skin is normal. Injury Description: No known injury. Historical: - Allergies: Clonidine (aphasia and dizziness); - Home Meds: 1. diltiazem HCl 180 mg Oral cpER 1 cap once daily (Last dose: 11/10/2016 06:30) 2. furosemide 40 mg Oral tab 2 tabs once daily (Last dose: 11/07/2016) 3. metoprolol ER 50 mg nightly (Last dose: 11/09/2016 22:30) 4. advil cold and flu Unknown 1 cap twice a day (Last dose: 11/10/2016 06:30) - PMHx: Hypertension; aortic dissection; aoritic aneurism; Atrial Fib; kidney disease; - PSHx: none; - Social history: Smoking status: Patient states was never smoker of tobacco. Patient uses No barriers to communication noted, The patient speaks fluent Irish. - Family history: No immediate family members are acutely ill. - : The pt / caregiver states he / she is not on anticoagulants. Home medication list is obtained from patients' pharmacy. - Exposure Risk Screening:: None identified. Screenin:01 Screening information is obtained from the patient. Fall risk: No risks identified. ja5 Assistance ADL's: requires no assistance with activities of daily living. Abuse/DV Screen: The patient / caregiver reports he/she is: not in a situation that causes fear, pain or injury. Nutritional screening: On no prescribed diet. Advance Directives: Currently, there is no health care proxy. There is no active DNR order. There is no living will. There is no Power of Engineering Technician. home support is inadequate. Assessment: 16:05 General: Appears in no apparent distress, Behavior is appropriate for age, cooperative. ja5 Neurological: Level of Consciousness is awake, alert, Oriented to person, place, time. Cardiovascular: Capillary refill < 3 seconds Heart tones S1 S2 present Rhythm is atrial fibrillation. Respiratory: Airway is patent Respiratory effort is even, unlabored, Respiratory pattern is regular, symmetrical. Derm: Skin is pink, warm & dry. 17:05 General: Patient sitting up in stretcher, he reported that he just had another episode ja5 of shortness of breath before I walked into the room. Patient denies chest pain at this time. Patient is awake, alert, oriented with even and unlabored respirations O2 sat 96% on RA; afib on shirt turner. . 18:51 General: Patient is sitting up on stretcher, denies chest pain or shortness of breath ja5 at this time but he stated "I had another episode five minutes ago." Respirations even and unlabored, color is pink, afib on shirt turner. Bed in low position, call malagon in reach. . 19:29 General: Appears in no apparent distress, well nourished, well groomed, Behavior is mv5 cooperative, restless, Pt ambulating in room to help manage feeling of shortness of breath and anxiety, VSS on monitor.. General:. Pain: Denies pain. Neurological: Level of Consciousness is awake, alert, Oriented to person, place, time, Moves all extremities. Gait is steady, Speech is normal, Facial symmetry appears normal. Cardiovascular: Capillary refill < 3 seconds Rhythm is atrial fibrillation Other variable rate 110's-120's. Respiratory: Airway is patent Respiratory effort is even, unlabored, Respiratory pattern is regular, symmetrical. Derm: Skin is pink, warm & dry. 19:38 General: SBAR faxed to PCU, confirmed by nursing unit manager. Advised that pt's current room mv5 assignment will change and PCU staff will notify when room is ready.. 20:22 General: Appears in no apparent distress, Behavior is cooperative, pleasant, Admission mv5 RN at bedside.. Neurological: No deficits noted. Cardiovascular: Rhythm is atrial fibrillation. Respiratory: Airway is patent Respiratory effort is even, unlabored, Respiratory pattern is regular, symmetrical. Derm: Skin is pink, warm & dry. 21:47 General: Appears in no apparent distress. Neurological: No deficits noted. mv5 Cardiovascular: Rhythm is atrial fibrillation. Respiratory: Airway is patent Respiratory effort is even, unlabored, Respiratory pattern is regular, symmetrical. Derm: Skin is pink, warm & dry. 22:20 General: Appears in no apparent distress. Neurological: No deficits noted. mv5 Cardiovascular: Rhythm is atrial fibrillation. Respiratory: Airway is patent Respiratory effort is even, unlabored, Respiratory pattern is regular, symmetrical. Derm: Skin is pink, warm & dry. Social Work Consult: 18:52 Social Work Note: This fiction writer met with pt who reports he has been having increasing ac panic attacks. Pt states he has not been in outpatient treatment recently. did see a counselor years ago when he lived in [place]. Pt provided with outpatient referrals. Pt will be admitted to the hospital, will be followed by [facility] as needed. Vital Signs: 15:06 BP 128 / 112; Pulse 124; Resp 24; Pulse Ox 99% on R/A; elp 15:34 Temp 97.2; ja5 15:42 BP 117 / 76 (auto/); ja5 15:42 Pulse 100 MON; Pulse Ox 79% ; ja5 15:44 BP 117 / 83 (auto/); ja5 15:44 Pulse 108 MON; Pulse Ox 97% ; ja5 16:02 BP 122 / 90 (auto/); ja5 16:02 Pulse 106 MON; Pulse Ox 95% ; ja5 16:12 Pulse 118 MON; Pulse Ox 96% ; ja5 16:14 BP 128 / 100 (auto/); ja5 16:29 BP 112 / 80 (auto/); ja5 16:29 Pulse 110 MON; ja5 16:43 Pulse 124 MON; ja5 16:44 BP 164 / 85 (auto/); ja5 17:02 BP 135 / 80 (auto/); ja5 17:02 Pulse 124 MON; ja5 17:40 Weight 99.79 kg; Height 5 ft. 9 in. (175.26 cm); ja5 18:50 BP 137 / 119; Pulse 113; Resp 24; Temp 97.5(O); Pulse Ox 95% on R/A; Pain 0/10; ja5 19:14 BP 127 / 105 (auto/); mv5 19:15 BP 127 / 105; Pulse 126 MON; Resp 18; Temp 96.8(O); Pulse Ox 94% ; mv5 19:29 BP 158 / 119 (auto/); mv5 19:30 Pulse 122 MON; Pulse Ox 96% ; mv5 19:44 BP 156 / 104 (auto/); mv5 19:44 Pulse 122 MON; Pulse Ox 92% ; mv5 19:57 BP 135 / 101 (auto/); mv5 19:58 Pulse 118 MON; Pulse Ox 97% ; mv5 19:59 BP 135 / 119 (auto/); mv5 20:00 Pulse 116 MON; Pulse Ox 96% ; mv5 20:14 BP 132 / 109 (auto/); mv5 20:15 Pulse 112 MON; Pulse Ox 94% ; mv5 20:45 Pulse 126 MON; Pulse Ox 95% ; mv5 21:00 Pulse 126 MON; Pulse Ox 95% ; mv5 21:15 Pulse 124 MON; Pulse Ox 93% ; mv5 21:30 Pulse 120 MON; Pulse Ox 94% ; mv5 21:46 Pulse 132 MON; Pulse Ox 96% ; mv5 17:40 Body Mass Index 32.49 (99.79 kg, 175.26 cm) Vitals: 15:06 Log In Time: November 10, 2016 at 15:00. RN notified that patient meets Red Flag elp criteria. ED Course: 15:06 Patient visited by Olya Harley PCA. elp 15:06 Sol Evans, RN is Primary Nurse. elp 15:06 Vijaya Moreau,RN is Primary Nurse. elp 15:06 Patient visited by Olya Harley PCA. elp 15:06 Patient moved to Waiting elp 15:06 Patient moved to 14 elp 15:07 Patient moved to 15 hs1 15:08 Isabel Rodriguez MD is Attending Physician. sd1 15:12 Triage Initiated lf1 15:33 Patient visited by Isabel Rodriguez MD. sd1 15:45 EKG done. (by ED staff). Reviewed by Isabel Rodriguez MD. cmb 15:47 Patient visited by Dottie Cespedes. cmb 15:47 Pt greeted and oriented to ED. Patient advised of names of staff involved in care, cmb location of call malagon, wait times and NPO status. Patient has correct armband on for positive identification. Placed in gown. Bed in low position. Call light in reach. Side rails up X2. state game warden on. Pulse ox on. NIBP on. 16:04 BLOOD CULTURES Sent. 16:04 -Blood Culture Sent. 16:04 B-Type Natiuretic Peptide Sent. 16:04 Basic Metabolic Profile Sent. 16:04 CBC with Diff Sent. 16:04 Cardiac Injury Profile Sent. 16:04 Troponin Sent. 16:05 Inserted saline lock: 18 gauge in right antecubital area. ja5 16:29 Patient moved to Ultrasound es5 16:40 Patient moved to 15 am17 17:00 Patient visited by Vijaya Moreau RN. ja5 17:08 Jimi Mary is Hospitalizing Provider. sd1 17:18 Patient visited by Vijaya Moreau RN. ja5 17:28 Lower Extremities Bilateral R/O DVT Returned. EDMS 17:57 Patient name changed from Jefe\\S\\\\S\\Arcenio\\S\\ to Jefe\\S\\ \\S\\Arcenio. EDMS 17:57 [facility] [place] Agreement was scanned into [employer] and attached to record. zo 18:24 Chest, 2 View (pa\\E\\lat) Returned. EDMS 18:43 Patient moved to Admit Hold kp 19:03 Primary Nurse role handed off by Sol Evans RN jc4 19:03 Primary Nurse role handed off by Vijaya Moreau RN jc4 19:06 Marisa Elizabeth,LAURA is Primary Nurse. mv5 19:29 The patient / caregiver is instructed regarding the plan of care and ED course. mv5 19:29 No procedures done that require assistance. mv5 11/11 18:13 T-Sheet-- Draft Copy was scanned into [employer] and attached to record. klr Order Results: Lab Order: B-Type Natiuretic Peptide; SPEC'M 11/10/16 16:00 Test: BRAIN NATRIURETIC PEPTIDE; Value: 2320; Range: <100; Abnormal: Above high normal; Units: PG/ML; Status: F Lab Order: Basic Metabolic Profile; SPEC'M 11/10/16 16:00 Test: GLUCOSE, FASTING; Value: 101; Range: 80-110; Units: MG/DL; Status: F Test: BLOOD UREA NITROGEN; Value: 72; Range: 7-18; Abnormal: Above high normal; Units: MG/DL; Status: F Test: CREATININE FOR GFR; Value: 5.18; Range: 0.70-1.30; Abnormal: Above high normal; Units: MG/DL; Status: F Test: GLOMERULAR FILTRATION RATE; Value: 12.1; Range: >49; Abnormal: Below low normal; Status: F Test: SODIUM LEVEL; Value: 139; Range: 136-145; Units: MEQ/L; Status: F Test: POTASSIUM SERUM; Value: 4.6; Range: 3.5-5.1; Units: MEQ/L; Status: F Test: CHLORIDE LEVEL; Value: 104; Range: 98-107; Units: MEQ/L; Status: F Test: CARBON DIOXIDE LEVEL; Value: 24; Range: 21-32; Units: MEQ/L; Status: F Test: ANION GAP; Value: 11; Range: 8-16; Units: MEQ/L; Status: F Test: CALCIUM LEVEL; Value: 8.6; Range: 8.8-10.2; Abnormal: Below low normal; Units: MG/DL; Status: F Test Note: ; Units are mL/min/1.73 m2 Chronic Kidney Disease Staging per NKF: Stage I & II GFR >=60 Normal to Mildly Decreased Stage III GFR 30-59 Moderately Decreased Stage IV GFR 15-29 Severely Decreased Stage V GFR <15 Very Little GFR Left ESRD GFR <15 on CAN CAPPER Lab Order: CBC with Diff; SPEC'M 11/10/16 16:00 Test: WHITE BLOOD COUNT; Value: 6.2; Range: 4.0-10.0; Units: K/mm3; Status: F Test: RED BLOOD COUNT; Value: 4.69; Range: 4.30-6.10; Units: M/mm3; Status: F Test: HEMOGLOBIN; Value: 14.1; Range: 14.0-18.0; Units: g/dl; Status: F Test: HEMATOCRIT; Value: 44.1; Range: 42.0-52.0; Units: %; Status: F Test: MEAN CORPUSCULAR VOLUME; Value: 93.9; Range: 80.0-96.0; Units: fl; Status: F Test: MEAN CORPUSCULAR HEMOGLOBIN; Value: 30.0; Range: 27.0-33.0; Units: pg; Status: F Test: MEAN CORPUSCULAR HGB CONC; Value: 32.0; Range: 32.0-36.5; Units: g/dl; Status: F Test: RED CELL DISTRIBUTION WIDTH; Value: 13.6; Range: 11.5-14.5; Units: %; Status: F Test: PLATELET COUNT, AUTOMATED; Value: 205; Range: 150-450; Units: k/mm3; Status: F Test: NEUTROPHILS %; Value: 65.5; Range: 36.0-66.0; Units: %; Status: F Test: LYMPH %; Value: 19.2; Range: 24.0-44.0; Abnormal: Below low normal; Units: %; Status: F Test: MONO %; Value: 10.3; Range: 0.0-5.0; Abnormal: Above high normal; Units: %; Status: F Test: EOS %; Value: 1.3; Range: 0.0-3.0; Units: %; Status: F Test: BASO %; Value: 1.0; Range: 0.0-1.0; Units: %; Status: F Test: LARGE UNSTAINED CELL %; Value: 2.7; Range: 0.0-4.0; Units: %; Status: F Test: NEUTROPHILS #; Value: 4.1; Range: 1.8-7.7; Units: K/mm3; Status: F Test: LYMPH #; Value: 1.4; Range: 1.5-4.5; Abnormal: Below low normal; Units: K/mm3; Status: F Test: MONO #; Value: 0.6; Range: 0.0-0.8; Units: K/mm3; Status: F Test: EOS #; Value: 0.1; Range: 0.0-0.50; Units: K/mm3; Status: F Test: BASO #; Value: 0.1; Range: 0.0-0.2; Units: K/mm3; Status: F Test: LARGE UNSTAINED CELL #; Value: 0.2; Range: 0.0-0.4; Units: K/mm3; Status: F Lab Order: Cardiac Injury Profile; SPEC'M 11/10/16 16:00 Test: CPK CREATINE PHOSPHOKINASE; Value: 82; Range: 39-308; Units: U/L; Status: F Test: CK-MB VALUE MASS; Value: 1.7; Range: 0.0-3.6; Units: NG/ML; Status: F Test: MB/CK RELATIVE INDEX; Value: 2.07; Range: < OR =4; Status: F Test Note: ; DIAGNOSIS CRITERIA MMB ng/ml Relative Index (RI) NON-AMI < or = 5 N/A RAYMOND ZONE > 5 < or = 4 AMI > 5 > 4 Lab Order: Troponin; SPEC'M 11/10/16 16:00 Test: TROPONIN I; Value: 0.04; Range: < 0.10; Units: NG/ML; Status: F Test Note: ; Troponin I Reference Interval for [employer] LOCI: 99th Percentile= 0.00-0.045 ng/ml Risk Stratification: <= 0.10 ng/ml Decreased Risk for Adverse Clinical Events. 0.10-1.50 ng/ml Increased Risk for Adverse Clinical Events. Evaluation of additional criterion and/or repeat testing in 2-6 hours is suggested to rule out myocardial damage. >= 1.50 ng/ml Indicative of Myocardial Injury. Lab Order: Thyroid Profile; SPEC'11/10/16 16:00 Test: T UPTAKE; Value: 41; Range: 33-40; Abnormal: Above high normal; Units: %; Status: F Test: THYROXINE (T4); Value: 5.3; Range: 4.5-12.0; Units: UG/DL; Status: F Test: FREE THYROXINE INDEX; Value: 2.2; Range: 1.4-3.8; Units: %; Status: F Test: THYROID STIMULATING HORMONE; Value: 2.990; Range: 0.358-3.740; Units: uIU/ML; Status: F Lab Order: Magnesium Level; 11/10/16 16:00 Test: MAGNESIUM LEVEL; Value: 2.7; Range: 1.8-2.4; Abnormal: Above high normal; Units: MG/DL; Status: F Lab Order: Urine Random,Creatinine; 11/10/16 22:01 Test: CREATININE,RANDOM URINE; Value: 208.0; Units: MG/DL; Status: F Lab Order: Urine Random,Potassium,; '11/10/16 22:01 Test: POTASSIUM RANDOM URINE; Value: 59.4; Units: MEQ/L; Status: F Lab Order: Urine,Osmolality; 11/10/16 22:01 Test: OSMOLALITY URINE; Value: 504; Range: 500-800; Units: MOSM/KG; Status: F Radiology Order: Chest, 2 View (pa\\E\\lat) Test: Chest, 2 View (pa\\E\\lat) REASON FOR EXAMINATION: sob; CHEST, TWO VIEWS:; ; HISTORY: Shortness of breath.; ; COMPARISON: 10/05/2016.; ; Linear density is present in the right lower lobe consistent with atelectasis.; The left lung is clear. The cardiac silhouette is enlarged. The thoracic aorta is; tortuous. The pulmonary vasculature is normal in appearance. The bony structure; is intact.; ; IMPRESSION:; 1. Right lower lobe atelectasis.; 2. Cardiomegaly.; ; ; ; Unreviewed; Radiology Order: US Lower Extremities Bilateral R/O DVT Test: US Lower Extremities Bilateral R/O DVT REASON FOR EXAMINATION: swelling; Clinical: Pain and swelling .; ; Technique: Raymond scale and color Doppler evaluation using linear high frequency; transducer.; ; Findings:; Ultrasound examination of the right and left lower extremity deep venous; structures from the common femoral vein to the popliteal vein demonstrates normal; compressibility flow and wave patterns in response to respiration and; augmentation. There is no evidence for deep venous thrombosis.; ; Impression:; No evidence for deep venous thrombosis bilaterally .; ; ; Signed by; Db Herndon MD 11/10/2016 04:45 P; Outcome: 11/10 17:08 Decision to Hospitalize by Provider. sd1 22:21 Discharge Assessment: Patient awake, alert and oriented x 3. No cognitive and/or mv5 functional deficits noted. Patient verbalized understanding of disposition instructions. patient administered narcotics - no. The following High Risk Discharge criteria are identified: None. Admitted to PCU accompanied by nurse, accompanied by tech, on monitor. Condition: stable. No special radiology studies were completed. Property :Personal belongings accompany Pt. 22:23 Patient left the ED. mv5 Signatures: Dispatcher [employer] EDCO Isabel Rodriguez MD MD sd1 Shante Cooper, RN RN kpNj Gamboa, SHAYNE PSA ac Carlos Salamanca Lisa,RN RN lf1 Tressa Irvin RN RN hs1 Sol Evans, LAURA RN jc4 Dottie Cespedes Erica es5 Patchen, Olya, CASINO ENFORCEMENT AGENT CASINO ENFORCEMENT AGENT elp Mis, Melita am17 Felisha Martino JessicaRN RN ja5 Marisa ElizabethRN RN mv5 Corrections: (The following items were deleted from the chart) 15:18 15:08 Red Flag criteria, patient assessed and taken directly to a bed. Charge notified, lf1 pt. taken to room via wheelchair. lf1 Chart Complete MTDD
--- NOTE | 2016-11-12 23:23 | EDDOCDS ---
Physician Documentation [facility] Name: Jefe Rg Age: 61 yrs Sex: Male : 1955 Arrival Date: 11/10/2016 Time: 15:00 Bed Admit Hold Private MD: Disposition: 11/10/16 17:08 Hospitalization ordered by Jimi Mray for Inpatient Admission. Preliminary diagnosis are Unspecified atrial fibrillation, Acute kidney failure, Acute diastolic (congestive) heart failure. - Bed requested for PCU. - Status is Inpatient Admission. mv5 - Condition is Stable. - Problem is new. - Symptoms are unchanged. Historical: - Allergies: Clonidine (aphasia and dizziness); - Home Meds: 1. diltiazem HCl 180 mg Oral cpER 1 cap once daily (Last dose: 11/10/2016 06:30) 2. furosemide 40 mg Oral tab 2 tabs once daily (Last dose: 11/07/2016) 3. metoprolol ER 50 mg nightly (Last dose: 11/09/2016 22:30) 4. advil cold and flu Unknown 1 cap twice a day (Last dose: 11/10/2016 06:30) - PMHx: Hypertension; aortic dissection; aoritic aneurism; Atrial Fib; kidney disease; - PSHx: none; - Social history: Smoking status: Patient states was never smoker of tobacco. Patient uses No barriers to communication noted, The patient speaks fluent Ukrainian. - Family history: No immediate family members are acutely ill. - : The pt / caregiver states he / she is not on anticoagulants. Home medication list is obtained from patients' pharmacy. - Exposure Risk Screening:: None identified. Vital Signs: 11/10 15:06 BP 128 / 112; Pulse 124; Resp 24; Pulse Ox 99% on R/A; elp 15:34 Temp 97.2; ja5 15:42 BP 117 / 76 (auto/); ja5 15:42 Pulse 100 MON; Pulse Ox 79% ; ja5 15:44 BP 117 / 83 (auto/); ja5 15:44 Pulse 108 MON; Pulse Ox 97% ; ja5 16:02 BP 122 / 90 (auto/); ja5 16:02 Pulse 106 MON; Pulse Ox 95% ; ja5 16:12 Pulse 118 MON; Pulse Ox 96% ; ja5 16:14 BP 128 / 100 (auto/); ja5 16:29 BP 112 / 80 (auto/); ja5 16:29 Pulse 110 MON; ja5 16:43 Pulse 124 MON; ja5 16:44 BP 164 / 85 (auto/); ja5 17:02 BP 135 / 80 (auto/); ja5 17:02 Pulse 124 MON; ja5 17:40 Weight 99.79 kg / 220 lbs; Height 5 ft. 9 in. (175.26 cm); ja5 18:50 BP 137 / 119; Pulse 113; Resp 24; Temp 97.5(O); Pulse Ox 95% on R/A; Pain 0/10; ja5 19:14 BP 127 / 105 (auto/); mv5 19:15 BP 127 / 105; Pulse 126 MON; Resp 18; Temp 96.8(O); Pulse Ox 94% ; mv5 19:29 BP 158 / 119 (auto/); mv5 19:30 Pulse 122 MON; Pulse Ox 96% ; mv5 19:44 BP 156 / 104 (auto/); mv5 19:44 Pulse 122 MON; Pulse Ox 92% ; mv5 19:57 BP 135 / 101 (auto/); mv5 19:58 Pulse 118 MON; Pulse Ox 97% ; mv5 19:59 BP 135 / 119 (auto/); mv5 20:00 Pulse 116 MON; Pulse Ox 96% ; mv5 20:14 BP 132 / 109 (auto/); mv5 20:15 Pulse 112 MON; Pulse Ox 94% ; mv5 20:45 Pulse 126 MON; Pulse Ox 95% ; mv5 21:00 Pulse 126 MON; Pulse Ox 95% ; mv5 21:15 Pulse 124 MON; Pulse Ox 93% ; mv5 21:30 Pulse 120 MON; Pulse Ox 94% ; mv5 21:46 Pulse 132 MON; Pulse Ox 96% ; mv5 17:40 Body Mass Index 32.49 (99.79 kg, 175.26 cm) [facility] MDM: 15:32 -Blood Culture (Adults Only), peripheral from different site, or from device/port/PICC sd1 etc. if present ordered. 15:32 [employer] Crewmember/Pulse Ox/q 15 min VS ordered. sd1 15:32 IV Saline Lock ordered. sd1 15:32 Rhythm Strip to chart ordered. sd1 15:34 Chest, 2 View (pa\E\lat) Ordered. EDMS 15:34 -Blood Culture Ordered. EDMS 15:34 B-Type Natiuretic Peptide Ordered. EDMS 15:34 Basic Metabolic Profile Ordered. EDMS 15:34 CBC with Diff Ordered. EDMS 15:34 Cardiac Injury Profile Ordered. EDMS 15:34 Troponin Ordered. EDMS 15:34 Thyroid Profile Ordered. EDMS 15:34 Magnesium Level Ordered. EDMS 15:34 ECG WITH READING ER PHYS+CARDIAG ordered. EDMS 15:34 US Lower Extremities Bilateral R/O DVT Ordered. EDMS 15:39 -Blood Culture (Adults Only), peripheral from different site, or from device/port/PICC lbd etc. if present complete. 15:41 Misc Director Of Cardiac Cath Lab Order ordered. sd1 15:42 BLOOD CULTURES Ordered. EDMS 15:48 Misc Director Of Cardiac Cath Lab Order ordered. sd1 16:00 Misc Director Of Cardiac Cath Lab Order complete. lbd 16:00 Misc Director Of Cardiac Cath Lab Order complete. lbd 16:03 ECG WITH READING ER PHYS ordered. EDMS 16:20 Financial registration complete. zo 16:45 B-Type Natiuretic Peptide Reviewed. sd1 16:45 Basic Metabolic Profile Reviewed. sd1 16:45 CBC with Diff Reviewed. sd1 16:45 Magnesium Level Reviewed. sd1 16:45 Troponin Reviewed. sd1 17:02 Urine Random,Creatinine Ordered. EDMS 17:02 Urine Random,Potassium, Ordered. EDMS 17:02 Urine,Osmolality Ordered. EDMS 17:04 Basic Metabolic Profile Reviewed. sd1 17:04 Thyroid Profile Reviewed. sd1 17:04 Magnesium Level Reviewed. sd1 17:04 Cardiac Injury Profile Reviewed. sd1 17:04 Troponin Reviewed. sd1 17:46 Admission / Observation Status ordered. EDMS 17:46 2 GRAM SODIUM DIET ordered. EDMS 17:57 [facility] Payment Agreement was scanned into [employer] and attached to record. zo 18:15 TROPONIN Ordered. EDMS 19:31 CBC WITH DIFFERENTIAL Ordered. EDMS 19:31 COMPLETE COMPHRENSIVE METABOLI Ordered. EDMS 19:31 MAGNESIUM LEVEL Ordered. EDMS 19:31 TROPONIN Ordered. EDMS 21:18 TROPONIN Ordered. EDMS 11/11 18:13 T-Sheet-- Draft Copy was scanned into [employer] and attached to record. klr Signatures: Dispatcher [employer] EDMS Isabel Rodriguez, MD MD sd1 Denia Clark, Refinery Technician Unit lbd Silvino Gutierrez RN RN Carlos Petit Kathie klr Andrews, Steven, Vijaya Aragon RN, sa, RN RN ja5 Marisa Elizabeth RN RN mv5 The chart was reviewed and I authenticate all verbal orders and agree with the evaluation and treatment provided.Corrections: (The following items were deleted from the chart) 11/10 18:43 15:32 Oxygen at 4L/Min NC or Home dosage ordered. sd1 jc4 21:18 19:31 TROPONIN ordered. EDMS EDMS Attachments: 17:57 [facility] Payment Agreement zo 11/11 18:13 T-Sheet-- Draft Copy klr Chart Complete MTDD
[2016-11-13] VITALS (7 sets, daily range): BP systolic 110–170; BP diastolic 72–101
--- NOTE | 2016-11-13 01:42 | IPN ---
DATE: 11/12/2016 Mr. Jefe Rg was seen earlier this morning and this evening, he was sitting in his bed in no acute distress at rest. He state he feels better. He was seen yesterday after being admitted for atrial fibrillation with a rapid ventricular rate. His medications/AV blocking agents are being readjusted in order to better control his ventricular rate. He has a history of hypertension as well as type B aortic dissection and extensive aortic aneurysm. He was also found on a recent echocardiogram done last month to have a back split aortic valve, but no significant stenosis. Left ventricular ejection fraction (LVEF) was reported to be about 50% with also moderate mitral regurgitation. Yesterday, his Lasix was discontinued because of worsening renal function. He denies any chest pain, shortness of breath, or palpitations. He stated he feels better today. He has no fever or chills. His pedal edema has been stable. PHYSICAL EXAMINATION: Patient is alert and awake in no acute distress at rest. VITAL SIGNS: His vital signs earlier this morning revealed a blood pressure of 110/92 to 142/92, and last blood pressure today was reported to be 137/109, probably artifactual. Prior to that, it was 110/78. His pulse varied between 90 up to 120. Respirations are 18. Oxygen saturation is 97-98% on room air. His fluid balance is only negative 250 mL for 11/11/2016. HEENT: Atraumatic. NECK: Supple, no jugular venous distention (JVD). LUNGS: Clear bilaterally without any wheezing or crackles. HEART: The heart examination revealed irregularly irregular heart sounds without gallops. The point of maximum impulse (PMI) is not displaced. There is no rub. There is a systolic murmur grade 1-2 over 6 at the lower left sternal border and at the apex with minimal radiation to the axilla. ABDOMEN: Unremarkable. EXTREMITIES: Revealed only trace bilateral lower leg and ankle edema. NEUROLOGICAL: Negative for focal deficit. LABS: PT 16.2 with an INR of 1.29. BMP revealed a sodium of 141, potassium 4.5, chloride 105, CO2 24, BUN 80, creatinine 5.2, GFR 12.1, fasting glucose 106, and calcium 8.5. Serum magnesium is 2.6. Liver enzymes revealed a total bilirubin of 1.0, AST 17, ALT 38, alkaline phosphatase 89, total protein 6.2, albumin 3.1. CBC done today revealed a WBC of 6.5, hemoglobin 13.9, hematocrit 42.7, and platelets 175,000. Telemetry revealed atrial fibrillation. IMPRESSION: 1. Atrial fibrillation with uncontrolled ventricular rate, recently diagnosed, September 2016. 2. History of type B aortic dissection. Diagnosed in 2013 in [place]. Patient with extensive aortic aneurysm. 3. Hypertension. 4. History of back split aortic valve. 5. [id number] kidney disease. Mr. Jefe Rg is stable and he is feeling better, his heart rate also has improved. The case was discussed earlier today with his hospitalist and we are going to increase the beta junior/metoprolol succinate. He may be started on Coumadin for prevention of thromboembolic event. We will continue with the amiodarone as needed. I have no plan to discharge him on IV amiodarone. He is planning to see his vp respiratory in [place] in the near future, and he thinks he will be going with ablation for his atrial fibrillation instead of mechanical cardioversion. Regarding his worsening kidney function, we will continue to hold the furosemide/Lasix. It was a pleasure to participate in the care of Mr. Jefe Rg for his underlying cardiac condition. I will continue to monitor him along with you while in the hospital. At this present time, he appears to be stable.
[2016-11-13 05:20] LABS: BASO % 0.6 % (0.0-1.0); EOS # 0.1 K/mm3 (0.0-0.50); EOS % 2.1 % (0.0-3.0); LARGE UNSTAINED CELL # 0.2 K/mm3 (0.0-0.4); LARGE UNSTAINED CELL % 3.8 % (0.0-4.0); LYMPH # 1.2 K/mm3 (1.5-4.5); LYMPH % 19.8 % (24.0-44.0); MEAN CORPUSCULAR HEMOGLOBIN 29.8 pg (27.0-33.0); MEAN CORPUSCULAR HGB CONC 33.2 g/dl (32.0-36.5); MEAN CORPUSCULAR VOLUME 89.9 fl (80.0-96.0); MONO # 0.6 K/mm3 (0.0-0.8); MONO % 9.8 % (0.0-5.0); NEUTROPHILS # 3.9 K/mm3 (1.8-7.7); NEUTROPHILS % 63.9 % (36.0-66.0); PLATELET COUNT, AUTOMATED 148 k/mm3 (150-450); RED CELL DISTRIBUTION WIDTH 13.7 % (11.5-14.5); WHITE BLOOD COUNT 6.1 K/mm3 (4.0-10.0)
[2016-11-13 05:32] LABS: INR 1.24
[2016-11-13 05:40] LABS: ALBUMIN/GLOBULIN RATIO 0.86 (1.00-1.93); BILIRUBIN,TOTAL 0.9 MG/DL (0.2-1.0); CALCIUM LEVEL 8.4 MG/DL (8.8-10.2); CREATININE FOR GFR 5.21 MG/DL (0.70-1.30); MAGNESIUM LEVEL 2.4 MG/DL (1.8-2.4); POTASSIUM SERUM 3.9 MEQ/L (3.5-5.1); TOTAL PROTEIN 6.5 GM/DL (6.4-8.2)
[2016-11-13] MEDS: SLF 3 ML SYR IV SCH ×3 (06:12→22:00)
--- NOTE | 2016-11-13 08:34 | IPNPDOC ---
Subjective Date Seen The patient was seen on 11/13/16. Subjective Chief Complaint/HPI The patient is a 61-year-old male admitted with a reason for visit of SOB. General: Denies: Chills, Fatigue, Malaise, Night Sweats, Normal Appetite, Other Symptoms, ROS Unobtainable Constitutional: Denies: Chills, Fatigue, Fever, Lethargy, Malaise, Night Sweats , Other, Weakness, Weight Loss Eyes: Denies: Conjunctivae inflammation, Eyelid inflammation, Other, Pain, Redness, Vision change ENT: Denies: Dysphagia, Ear Pain, Epistaxis, Head Aches, Other Symptoms, Post Nasal Drip, Sinus Congestion, Sore Throat Skin: Denies: Breakdown, Bruising, Dry, Itching, Jaundice, Lesions, Nail Changes, Other, Rash Pulmonary: Denies: Cough, Dyspnea, Other Symptoms, Pleuritic Chest Pain Cardiovascular: Denies: Chest Pain, Edema, Lt Headedness, Orthopnea, Other Symptoms, Palpitations, Paroxysmal Noc. Dyspnea Gastrointestinal: Denies: Abdominal Pain, Constipation, Diarrhea, Hematochezia , Melena, Nausea, Other Symptoms, Vomiting Genitourinary: Denies: Dysuria, Frequency, Hematuria, Incontinence, Other Symptoms, Retention Psych: Reports: Anxiety Objective Physical Examination General Exam: Positive: Alert, Cooperative, No Acute Distress Eye Exam: Positive: Conjunctiva & lids normal, EOMI, PERRLA, Negative: Sclera icteric ENT Exam: Positive: Atraumatic, Mucous membr. moist/pink Neck Exam: Positive: Supple Chest Exam: Positive: Clear to auscultation, Normal air movement Heart Exam: Positive: Irregular Rhythm, Tachycardic Telemetry: Positive: Atrial fibrillation Abdomen Exam: Positive: Normal bowel sounds, Soft, Negative: Tenderness Psych Exam: Positive: Anxiety, Oriented x 3 Assessment /Plan Problems (1) Afib Status: Chronic Response to Treatment: Progressing Discussed With: Supervisor Microbiology Technologists, Patient Problem Specific Plan: Consult Specialist, Monitor Clinically Problem Text: still tachycardic. Increased beta blockade yesterday. received amiodarone. likely component of anxiety. started xanax PRN. anticoagulation started as per cardiology, vascular surgery dr. mckeon at [place], and his outpatient hvac project engineer dr. unger. no bridging necessary as per vascular and o/p cardiology (2) Anxiety Status: Chronic Discussed With: Patient Problem Specific Plan: Monitor Clinically Problem Text: Possibly secondary to EtOH abuse. xanax as needed BB increased. (3) Shortness of breath Status: Chronic Discussed With: Patient Problem Specific Plan: Monitor Clinically Problem Text: Appears to be related to anxiety/panic attacks. Also likely KAYLA. States he was previously scheduled for sleep study however did not attend his appointment. Will check nocturnal oximetry. (4) HTN (hypertension) Status: Chronic Problem Specific Plan: Monitor Clinically Problem Text: BB increased, CCB. (5) Aortic dissection Status: Chronic Problem Text: Known history of chronic type B aortic dissection from at least 2013 originally diagnosed in [place]. Also known history of thoracic aortic aneurysm 5.2-5.4. CT chest noted. Blood pressure control. Discussed with his outpatient hvac project engineer Dr. Unger and vascular surgeon Dr. Mckeon from [place]. Not a surgical candidate. (6) CKD (chronic kidney disease) Status: Chronic Problem Specific Plan: Consult Specialist, Repeat Labs Problem Text: baseline CKD IV-V discussed with nephrology, consultation appreciated reviewed records from [place], does appear essentially at baseline. He is not interested in dialysis if ever needed. (7) Chest pain Status: Resolved Discussed With: Supervisor Microbiology Technologists, Patient Problem Specific Plan: Consult Specialist, Monitor Clinically Problem Text: Troponins negative. Cardiology consultation appreciated. Further discussion with patient it appears he likely never actually had chest pains, but more consistent with panic/anxiety. Plan/VTE VTE Prophylaxis Ordered?: Yes Plan Diet: Continue Current Activity: Continue Current, Encourage Ambulation Diagnostics: Repeat Labs in AM, EKG Anticipated Discharge: Home Advance Directives: DNR VS, I&O, 24H, Thomas Vital Signs/I&O Vital Signs Date Time Temp Pulse Resp B/P Pulse Ox O2 Delivery O2 Flow Rate FiO2 11/13/16 03:35 95.6 121 20 119/101 95 Room Air I&O- Last 24 Hours up to 6 AM 11/13/16 06:00 Intake Total 1770 ml Output Total 2505 ml Balance -735 ml Laboratory Data 24H LABS Laboratory Tests 2 11/13/16 05:10: Blood Urea Nitrogen 81H, Creatinine 5.21H, Sodium Level 139, Potassium Level 3.9 , Chloride Level 105, Carbon Dioxide Level 24, Calcium Level 8.4L, Aspartate Amino Transf (AST/SGOT) 13L, Alanine Aminotransferase (ALT/SGPT) 30, Alkaline Phosphatase 81, Total Bilirubin 0.9, Total Protein 6.5, Albumin 3.0L, Albumin/ Globulin Ratio 0.86L, Anion Gap 10, White Blood Count 6.1, Red Blood Count 4.55 , Hemoglobin 13.6L, Hematocrit 40.9L, Mean Corpuscular Volume 89.9, Mean Corpuscular Hemoglobin 29.8, Mean Corpuscular Hemoglobin Concent 33.2, Red Cell Distribution Width 13.7, Platelet Count 148L, Neutrophils (%) (Auto) 63.9, Lymphocytes (%) (Auto) 19.8L, Monocytes (%) (Auto) 9.8H, Eosinophils (%) (Auto) 2.1, Basophils (%) (Auto) 0.6, Neutrophils # (Auto) 3.9, Lymphocytes # (Auto) 1.2L, Monocytes # (Auto) 0.6, Eosinophils # (Auto) 0.1, Basophils # (Auto) 0.0, Glomerular Filtration Rate 12.0L, Large Unclassified Cells # 0.2, Large Unclassified Cells % 3.8, Magnesium Level 2.4, Prothromb Time International Ratio 1.24, Prothrombin Time 15.7H CBC/BMP Laboratory Tests 11/13/16 05:10 Calcium Level 8.4 L, Aspartate Amino Transf (AST/SGOT) 13 L, Alanine Aminotransferase (ALT/SGPT) 30, Alkaline Phosphatase 81, Total Bilirubin 0.9, Total Protein 6.5, Albumin 3.0 L, Red Blood Count 4.55, Mean Corpuscular Volume 89.9, Mean Corpuscular Hemoglobin 29.8, Mean Corpuscular Hemoglobin Concent 33.2 , Red Cell Distribution Width 13.7, Neutrophils (%) (Auto) 63.9, Lymphocytes (% ) (Auto) 19.8 L, Monocytes (%) (Auto) 9.8 H, Eosinophils (%) (Auto) 2.1, Basophils (%) (Auto) 0.6, Neutrophils # (Auto) 3.9, Lymphocytes # (Auto) 1.2 L, Monocytes # (Auto) 0.6, Eosinophils # (Auto) 0.1, Basophils # (Auto) 0.0 Microbiology Microbiology 11/10/16 Blood Culture - Preliminary, Resulted No Growth after 48 hours. All Specime... 11/10/16 Blood Culture - Preliminary, Resulted No Growth after 48 hours. All Specime... SU BALLESTEROS MD Nov 13, 2016 08:34
[2016-11-13] MEDS: SENOKOT S TAB PO SCH ×2 (09:43→21:00)
[2016-11-13] MEDS: FUROSEMIDE 20 MG TAB PO SCH (09:43)
[2016-11-13] MEDS: diltiaZEM **CD** 180 MG CAP PO SCH (09:44)
[2016-11-13] MEDS: amLODIPine 5 MG TAB PO SCH (12:19)
--- NOTE | 2016-11-13 15:22 | IPN ---
DATE: 11/13/2016 Mr. Rg is seen this morning on his bedside. He was admitted with shortness of breath related to rapid atrial fibrillation. He has known history of stage IV or early stage V chronic kidney disease. According to his admission history and physical and progress notes, the patient has been declining his dialysis or in fact, has reported that he has already discussed with his primary curator of education in [place] and does not wish dialysis. I had a 45-minute [id number] conversation with the patient and his issues were discussed at length. The patient reports that he has rapid atrial fibrillation which causes him significant anxiety and panic attacks. He reports that he is able to calm himself down at times during panic attacks; however, sometimes he cannot help. He also reports that over the last couple of months, his heart rate has been poorly controlled and all medical therapy has not worked well so far. He is hoping to get an ablation procedure with his advanced manufacturing engineer in [place] in the near future. At present, he denies any nausea or vomiting. He has no chest pain. Last night, he had some anxiety and required Xanax and Ativan. PHYSICAL EXAMINATION: He is awake and alert, without any acute distress at the time of my visit. ' Temperature is 96.4 degrees Fahrenheit, heart rate in 120s and respiratory rate 20 per minute. Blood pressure 118/84 mmHg and oxygen saturation 95% on room air. Head is atraumatic. Ears, nose and throat are unremarkable. Pupils are equal and reactive to light and sclera is anicteric. Neck veins are mildly distended. Heart sounds are tachycardiac and irregular in rhythm. Lungs have no wheezing and no rales. There are slightly diminished breath sounds. Abdomen is soft and nontender. Bowel sounds are normal, and there is no palpable organomegaly. ' Extremities have no cyanosis or clubbing. He does have at least 1+ leg edema bilaterally. Neurologically, he is awake, alert and oriented times three. Today's labs show WBC count 6.1, hemoglobin 13.6 and hematocrit 40.9. Sodium 139 and potassium 3.9. BUN 81 and creatinine 5.21. Calcium level is 8.4. Total protein 6.5 and albumin 3.0. Yesterday, his intact PTH level was 295. PROBLEMS: 1. Acute renal failure superimposed on chronic kidney disease. The patient is known to have advanced stage IV or early stage V of chronic kidney disease. He did have some worsening of kidney function, most likely related to rapid atrial fibrillation. I had a long discussion with the patient, and he understands that he is likely to require dialysis in his lifetime. At this point, he wishes to continue working and does not wish to be do not resuscitate (DNR) or withdrawal any care. He did understand clearly that at some point in his lifetime, he is likely to require dialysis and he will get himself mentally prepared for it. I did not get the impression from our lengthy conversation that he does not want dialysis at all. 2. Rapid atrial fibrillation. The patient remains in atrial fibrillation with ventricular rate in the 120s. The patient reports that metoprolol caused him significant side effects and poor control of his atrial fibrillation. I recommend that either cardiology adjust his medications, add digoxin, or transfer him to [place] for possible ablation procedure with his primary advanced manufacturing engineer. His underlying problem is atrial fibrillation, which is probably contributing to his anxiety, panic attacks and worsening kidney function. 3. Secondary hyperparathyroidism related to advanced chronic kidney disease. At this point, will start him on low dose vitamin D and monitor his parathyroidism. We will also check his phosphorus level with blood work. He is receiving calcitriol 0.25 mcg on Tuesday, Tuesday and Tuesday schedule, which is appropriate. 4. Congestive heart failure. His congestive heart failure is mostly related to advanced chronic kidney disease and rapid atrial fibrillation. The patient is receiving Lasix 60 mg daily with only minimal negative fluid balance. His blood pressure is soft, so we will avoid aggressive diuresis at this point. Once his atrial fibrillation or ventricular rate is improved, then we can try to increase his diuretic dose to twice a day. I spent 45 minutes [id number] with the patient and discussed all his issues at length. I answered all his questions.
[2016-11-13] MEDS: WARFARIN SOD 5 MG TAB PO SCH (17:17)
--- NOTE | 2016-11-13 20:31 | EDDOCDS ---
Physician Documentation [facility] Name: Jefe Rg Age: 61 yrs Sex: Male : 1955 Arrival Date: 11/10/2016 Time: 15:00 Bed Admit Hold Private MD: Disposition: 11/10/16 17:08 Hospitalization ordered by Jimi Mary for Inpatient Admission. Preliminary diagnosis are Unspecified atrial fibrillation, Acute kidney failure, Acute diastolic (congestive) heart failure. - Bed requested for PCU. - Status is Inpatient Admission. mv5 - Condition is Stable. - Problem is new. - Symptoms are unchanged. Historical: - Allergies: Clonidine (aphasia and dizziness); - Home Meds: 1. diltiazem HCl 180 mg Oral cpER 1 cap once daily (Last dose: 11/10/2016 06:30) 2. furosemide 40 mg Oral tab 2 tabs once daily (Last dose: 11/07/2016) 3. metoprolol ER 50 mg nightly (Last dose: 11/09/2016 22:30) 4. advil cold and flu Unknown 1 cap twice a day (Last dose: 11/10/2016 06:30) - PMHx: Hypertension; aortic dissection; aoritic aneurism; Atrial Fib; kidney disease; - PSHx: none; - Social history: Smoking status: Patient states was never smoker of tobacco. Patient uses No barriers to communication noted, The patient speaks fluent Hebrew. - Family history: No immediate family members are acutely ill. - : The pt / caregiver states he / she is not on anticoagulants. Home medication list is obtained from patients' pharmacy. - Exposure Risk Screening:: None identified. Vital Signs: 11/10 15:06 BP 128 / 112; Pulse 124; Resp 24; Pulse Ox 99% on R/A; elp 15:34 Temp 97.2; ja5 15:42 BP 117 / 76 (auto/); ja5 15:42 Pulse 100 MON; Pulse Ox 79% ; ja5 15:44 BP 117 / 83 (auto/); ja5 15:44 Pulse 108 MON; Pulse Ox 97% ; ja5 16:02 BP 122 / 90 (auto/); ja5 16:02 Pulse 106 MON; Pulse Ox 95% ; ja5 16:12 Pulse 118 MON; Pulse Ox 96% ; ja5 16:14 BP 128 / 100 (auto/); ja5 16:29 BP 112 / 80 (auto/); ja5 16:29 Pulse 110 MON; ja5 16:43 Pulse 124 MON; ja5 16:44 BP 164 / 85 (auto/); ja5 17:02 BP 135 / 80 (auto/); ja5 17:02 Pulse 124 MON; ja5 17:40 Weight 99.79 kg / 220 lbs; Height 5 ft. 9 in. (175.26 cm); ja5 18:50 BP 137 / 119; Pulse 113; Resp 24; Temp 97.5(O); Pulse Ox 95% on R/A; Pain 0/10; ja5 19:14 BP 127 / 105 (auto/); mv5 19:15 BP 127 / 105; Pulse 126 MON; Resp 18; Temp 96.8(O); Pulse Ox 94% ; mv5 19:29 BP 158 / 119 (auto/); mv5 19:30 Pulse 122 MON; Pulse Ox 96% ; mv5 19:44 BP 156 / 104 (auto/); mv5 19:44 Pulse 122 MON; Pulse Ox 92% ; mv5 19:57 BP 135 / 101 (auto/); mv5 19:58 Pulse 118 MON; Pulse Ox 97% ; mv5 19:59 BP 135 / 119 (auto/); mv5 20:00 Pulse 116 MON; Pulse Ox 96% ; mv5 20:14 BP 132 / 109 (auto/); mv5 20:15 Pulse 112 MON; Pulse Ox 94% ; mv5 20:45 Pulse 126 MON; Pulse Ox 95% ; mv5 21:00 Pulse 126 MON; Pulse Ox 95% ; mv5 21:15 Pulse 124 MON; Pulse Ox 93% ; mv5 21:30 Pulse 120 MON; Pulse Ox 94% ; mv5 21:46 Pulse 132 MON; Pulse Ox 96% ; mv5 17:40 Body Mass Index 32.49 (99.79 kg, 175.26 cm) [facility] MDM: 15:32 -Blood Culture (Adults Only), peripheral from different site, or from device/port/PICC sd1 etc. if present ordered. 15:32 Burn Out Tender Lace/Pulse Ox/q 15 min VS ordered. sd1 15:32 IV Saline Lock ordered. sd1 15:32 Rhythm Strip to chart ordered. sd1 15:34 Chest, 2 View (pa\E\lat) Ordered. EDMS 15:34 -Blood Culture Ordered. EDMS 15:34 B-Type Natiuretic Peptide Ordered. EDMS 15:34 Basic Metabolic Profile Ordered. EDMS 15:34 CBC with Diff Ordered. EDMS 15:34 Cardiac Injury Profile Ordered. EDMS 15:34 Troponin Ordered. EDMS 15:34 Thyroid Profile Ordered. EDMS 15:34 Magnesium Level Ordered. EDMS 15:34 ECG WITH READING ER PHYS+CARDIAG ordered. EDMS 15:34 US Lower Extremities Bilateral R/O DVT Ordered. EDMS 15:39 -Blood Culture (Adults Only), peripheral from different site, or from device/port/PICC lbd etc. if present complete. 15:41 Misc Medicaid Specialist Order ordered. sd1 15:42 BLOOD CULTURES Ordered. EDMS 15:48 Misc Medicaid Specialist Order ordered. sd1 16:00 Misc Medicaid Specialist Order complete. lbd 16:00 Misc Medicaid Specialist Order complete. lbd 16:03 ECG WITH READING ER PHYS ordered. EDMS 16:20 Financial registration complete. zo 16:45 B-Type Natiuretic Peptide Reviewed. sd1 16:45 Basic Metabolic Profile Reviewed. sd1 16:45 CBC with Diff Reviewed. sd1 16:45 Magnesium Level Reviewed. sd1 16:45 Troponin Reviewed. sd1 17:02 Urine Random,Creatinine Ordered. EDMS 17:02 Urine Random,Potassium, Ordered. EDMS 17:02 Urine,Osmolality Ordered. EDMS 17:04 Basic Metabolic Profile Reviewed. sd1 17:04 Thyroid Profile Reviewed. sd1 17:04 Magnesium Level Reviewed. sd1 17:04 Cardiac Injury Profile Reviewed. sd1 17:04 Troponin Reviewed. sd1 17:46 Admission / Observation Status ordered. EDMS 17:46 2 GRAM SODIUM DIET ordered. EDMS 17:57 [facility] Payment Agreement was scanned into echoecho and attached to record. zo 18:15 TROPONIN Ordered. EDMS 19:31 CBC WITH DIFFERENTIAL Ordered. EDMS 19:31 COMPLETE COMPHRENSIVE METABOLI Ordered. EDMS 19:31 MAGNESIUM LEVEL Ordered. EDMS 19:31 TROPONIN Ordered. EDMS 21:18 TROPONIN Ordered. EDMS 11/11 18:13 T-Sheet-- Draft Copy was scanned into echoecho and attached to record. klr Signatures: Dispatcher [employer] EDMS Isabel Rodriguez, MD MD sd1 Denia Clark, Can Cleaner Unit lbd Silvino Gutierrez RN RN Carlos Petit Kathie klr Andrews, Steven, Vijaya Aragon RN, sa, RN RN ja5 Marisa Elizabeth RN RN mv5 The chart was reviewed and I authenticate all verbal orders and agree with the evaluation and treatment provided.Corrections: (The following items were deleted from the chart) 11/10 18:43 15:32 Oxygen at 4L/Min NC or Home dosage ordered. sd1 jc4 21:18 19:31 TROPONIN ordered. EDMS EDMS Attachments: 17:57 [facility] Payment Agreement zo 11/11 18:13 T-Sheet-- Draft Copy klr Chart Complete MTDD
--- NOTE | 2016-11-13 20:31 | EDDOCDS ---
Nurse's Notes [facility] Name: Jefe Rg Age: 61 yrs Sex: Male : 1955 Arrival Date: 11/10/2016 Time: 15:00 Bed Admit Hold Private MD: Diagnosis: Unspecified atrial fibrillation;Acute kidney failure;Acute diastolic (congestive) heart failure Presentation: 11/10 15:08 Presenting complaint: Patient states: Was driving back from [employer] after followup at [address] Garcia of Cardiology, states he began to feel dizzy and short of breath in the car and pulled over. Pt reports he began to panic and felt that he was going to become incontinent. Pt reports that he is "unbelievably short of breath". States both his arms fell "funny" and that he "sort of" has chest pain. Adult Sepsis Screening: The patient does not have new or worsening altered mentation. Patient has a respiratory rate of greater than or equal to 22 (1 point). Systolic blood pressure is greater than 100. Patient has a qSOFA score of 1- Negative Sepsis Screen. Suicide/Homicide risk assessment- the patient denies having any suicidal and/or homicidal ideations and does not present with any other emotional, behavioral or mental health complaints. Status: Patient is not a pump servicer helper or dependent. Transition of care: patient was not received from another setting of care. Red Flag criteria, patient assessed and taken directly to a bed. 15:08 Acuity: TIA Level 2 lf1 15:08 Method Of Arrival: Wheelchair [facility] 15:08 Red Flag criteria, patient assessed and taken directly to a bed. Charge notified, pt. 1 taken to room via wheelchair. Primary nurse notified. Triage Assessment: 15:12 General: Appears uncomfortable, Behavior is anxious, restless. Pain: Location: chest, lf1 right arm and left arm Pain currently is 2 out of 10 on a pain scale. Pt Declines HIV testing. Neurological: Level of Consciousness is awake, alert, Oriented to person, place, time, Speech is normal. EENT: No deficits noted. Cardiovascular: Chest pain "sort of". Respiratory: Reports shortness of breath. GI: Denies nausea, vomiting. GI: Reports constipation, decreased appetite and weight loss. : Reports inability to void States he is taking Lasix but is having trouble voiding. Derm: Skin is normal. Injury Description: No known injury. Historical: - Allergies: Clonidine (aphasia and dizziness); - Home Meds: 1. diltiazem HCl 180 mg Oral cpER 1 cap once daily (Last dose: 11/10/2016 06:30) 2. furosemide 40 mg Oral tab 2 tabs once daily (Last dose: 11/07/2016) 3. metoprolol ER 50 mg nightly (Last dose: 11/09/2016 22:30) 4. advil cold and flu Unknown 1 cap twice a day (Last dose: 11/10/2016 06:30) - PMHx: Hypertension; aortic dissection; aoritic aneurism; Atrial Fib; kidney disease; - PSHx: none; - Social history: Smoking status: Patient states was never smoker of tobacco. Patient uses No barriers to communication noted, The patient speaks fluent Honduran. - Family history: No immediate family members are acutely ill. - : The pt / caregiver states he / she is not on anticoagulants. Home medication list is obtained from patients' pharmacy. - Exposure Risk Screening:: None identified. Screenin:01 Screening information is obtained from the patient. Fall risk: No risks identified. ja5 Assistance ADL's: requires no assistance with activities of daily living. Abuse/DV Screen: The patient / caregiver reports he/she is: not in a situation that causes fear, pain or injury. Nutritional screening: On no prescribed diet. Advance Directives: Currently, there is no health care proxy. There is no active DNR order. There is no living will. There is no Power of Film Library Clerk. home support is inadequate. Assessment: 16:05 General: Appears in no apparent distress, Behavior is appropriate for age, cooperative. ja5 Neurological: Level of Consciousness is awake, alert, Oriented to person, place, time. Cardiovascular: Capillary refill < 3 seconds Heart tones S1 S2 present Rhythm is atrial fibrillation. Respiratory: Airway is patent Respiratory effort is even, unlabored, Respiratory pattern is regular, symmetrical. Derm: Skin is pink, warm & dry. 17:05 General: Patient sitting up in stretcher, he reported that he just had another episode ja5 of shortness of breath before I walked into the room. Patient denies chest pain at this time. Patient is awake, alert, oriented with even and unlabored respirations O2 sat 96% on RA; afib on cardiac cath tech. . 18:51 General: Patient is sitting up on stretcher, denies chest pain or shortness of breath ja5 at this time but he stated "I had another episode five minutes ago." Respirations even and unlabored, color is pink, afib on cardiac cath tech. Bed in low position, call malagon in reach. . 19:29 General: Appears in no apparent distress, well nourished, well groomed, Behavior is mv5 cooperative, restless, Pt ambulating in room to help manage feeling of shortness of breath and anxiety, VSS on monitor.. General:. Pain: Denies pain. Neurological: Level of Consciousness is awake, alert, Oriented to person, place, time, Moves all extremities. Gait is steady, Speech is normal, Facial symmetry appears normal. Cardiovascular: Capillary refill < 3 seconds Rhythm is atrial fibrillation Other variable rate 110's-120's. Respiratory: Airway is patent Respiratory effort is even, unlabored, Respiratory pattern is regular, symmetrical. Derm: Skin is pink, warm & dry. 19:38 General: SBAR faxed to PCU, confirmed by unit controller. Advised that pt's current room mv5 assignment will change and PCU staff will notify when room is ready.. 20:22 General: Appears in no apparent distress, Behavior is cooperative, pleasant, Admission mv5 RN at bedside.. Neurological: No deficits noted. Cardiovascular: Rhythm is atrial fibrillation. Respiratory: Airway is patent Respiratory effort is even, unlabored, Respiratory pattern is regular, symmetrical. Derm: Skin is pink, warm & dry. 21:47 General: Appears in no apparent distress. Neurological: No deficits noted. mv5 Cardiovascular: Rhythm is atrial fibrillation. Respiratory: Airway is patent Respiratory effort is even, unlabored, Respiratory pattern is regular, symmetrical. Derm: Skin is pink, warm & dry. 22:20 General: Appears in no apparent distress. Neurological: No deficits noted. mv5 Cardiovascular: Rhythm is atrial fibrillation. Respiratory: Airway is patent Respiratory effort is even, unlabored, Respiratory pattern is regular, symmetrical. Derm: Skin is pink, warm & dry. Social Work Consult: 18:52 Social Work Note: This filing writer met with pt who reports he has been having increasing ac panic attacks. Pt states he has not been in outpatient treatment recently. did see a counselor years ago when he lived in [place]. Pt provided with outpatient referrals. Pt will be admitted to the hospital, will be followed by [facility] as needed. Vital Signs: 15:06 BP 128 / 112; Pulse 124; Resp 24; Pulse Ox 99% on R/A; elp 15:34 Temp 97.2; ja5 15:42 BP 117 / 76 (auto/); ja5 15:42 Pulse 100 MON; Pulse Ox 79% ; ja5 15:44 BP 117 / 83 (auto/); ja5 15:44 Pulse 108 MON; Pulse Ox 97% ; ja5 16:02 BP 122 / 90 (auto/); ja5 16:02 Pulse 106 MON; Pulse Ox 95% ; ja5 16:12 Pulse 118 MON; Pulse Ox 96% ; ja5 16:14 BP 128 / 100 (auto/); ja5 16:29 BP 112 / 80 (auto/); ja5 16:29 Pulse 110 MON; ja5 16:43 Pulse 124 MON; ja5 16:44 BP 164 / 85 (auto/); ja5 17:02 BP 135 / 80 (auto/); ja5 17:02 Pulse 124 MON; ja5 17:40 Weight 99.79 kg; Height 5 ft. 9 in. (175.26 cm); ja5 18:50 BP 137 / 119; Pulse 113; Resp 24; Temp 97.5(O); Pulse Ox 95% on R/A; Pain 0/10; ja5 19:14 BP 127 / 105 (auto/); mv5 19:15 BP 127 / 105; Pulse 126 MON; Resp 18; Temp 96.8(O); Pulse Ox 94% ; mv5 19:29 BP 158 / 119 (auto/); mv5 19:30 Pulse 122 MON; Pulse Ox 96% ; mv5 19:44 BP 156 / 104 (auto/); mv5 19:44 Pulse 122 MON; Pulse Ox 92% ; mv5 19:57 BP 135 / 101 (auto/); mv5 19:58 Pulse 118 MON; Pulse Ox 97% ; mv5 19:59 BP 135 / 119 (auto/); mv5 20:00 Pulse 116 MON; Pulse Ox 96% ; mv5 20:14 BP 132 / 109 (auto/); mv5 20:15 Pulse 112 MON; Pulse Ox 94% ; mv5 20:45 Pulse 126 MON; Pulse Ox 95% ; mv5 21:00 Pulse 126 MON; Pulse Ox 95% ; mv5 21:15 Pulse 124 MON; Pulse Ox 93% ; mv5 21:30 Pulse 120 MON; Pulse Ox 94% ; mv5 21:46 Pulse 132 MON; Pulse Ox 96% ; mv5 17:40 Body Mass Index 32.49 (99.79 kg, 175.26 cm) Vitals: 15:06 Log In Time: November 10, 2016 at 15:00. RN notified that patient meets Red Flag elp criteria. ED Course: 15:06 Patient visited by Olya Harley PCA. elp 15:06 Sol Evans, RN is Primary Nurse. elp 15:06 Vijaya Moreau,RN is Primary Nurse. elp 15:06 Patient visited by Olya Harley PCA. elp 15:06 Patient moved to Waiting elp 15:06 Patient moved to 14 elp 15:07 Patient moved to 15 hs1 15:08 Isabel Rodriguez MD is Attending Physician. sd1 15:12 Triage Initiated lf1 15:33 Patient visited by Isabel Rodriguez MD. sd1 15:45 EKG done. (by ED staff). Reviewed by Isabel Rodriguez MD. cmb 15:47 Patient visited by Dottie Cespedes. cmb 15:47 Pt greeted and oriented to ED. Patient advised of names of staff involved in care, cmb location of call malagon, wait times and NPO status. Patient has correct armband on for positive identification. Placed in gown. Bed in low position. Call light in reach. Side rails up X2. radiation monitor on. Pulse ox on. NIBP on. 16:04 BLOOD CULTURES Sent. 16:04 -Blood Culture Sent. 16:04 B-Type Natiuretic Peptide Sent. 16:04 Basic Metabolic Profile Sent. 16:04 CBC with Diff Sent. 16:04 Cardiac Injury Profile Sent. 16:04 Troponin Sent. 16:05 Inserted saline lock: 18 gauge in right antecubital area. ja5 16:29 Patient moved to Ultrasound es5 16:40 Patient moved to 15 am17 17:00 Patient visited by Vijaya Moreau RN. ja5 17:08 Jimi Mary is Hospitalizing Provider. sd1 17:18 Patient visited by Vijaya Moreau RN. ja5 17:28 Lower Extremities Bilateral R/O DVT Returned. EDMS 17:57 Patient name changed from Jefe\\S\\\\S\\Arcenio\\S\\ to Jefe\\S\\ \\S\\Arcenio. EDMS 17:57 [facility] Payment Agreement was scanned into [employer] and attached to record. zo 18:24 Chest, 2 View (pa\\E\\lat) Returned. EDMS 18:43 Patient moved to Admit Hold kp 19:03 Primary Nurse role handed off by Sol Evans RN jc4 19:03 Primary Nurse role handed off by Vijaya Moreau RN jc4 19:06 Marisa Elizabeth,LAURA is Primary Nurse. mv5 19:29 The patient / caregiver is instructed regarding the plan of care and ED course. mv5 19:29 No procedures done that require assistance. mv5 11/11 18:13 T-Sheet-- Draft Copy was scanned into [employer] and attached to record. klr Order Results: Lab Order: B-Type Natiuretic Peptide; SPEC'M 11/10/16 16:00 Test: BRAIN NATRIURETIC PEPTIDE; Value: 2320; Range: <100; Abnormal: Above high normal; Units: PG/ML; Status: F Lab Order: Basic Metabolic Profile; SPEC'M 11/10/16 16:00 Test: GLUCOSE, FASTING; Value: 101; Range: 80-110; Units: MG/DL; Status: F Test: BLOOD UREA NITROGEN; Value: 72; Range: 7-18; Abnormal: Above high normal; Units: MG/DL; Status: F Test: CREATININE FOR GFR; Value: 5.18; Range: 0.70-1.30; Abnormal: Above high normal; Units: MG/DL; Status: F Test: GLOMERULAR FILTRATION RATE; Value: 12.1; Range: >49; Abnormal: Below low normal; Status: F Test: SODIUM LEVEL; Value: 139; Range: 136-145; Units: MEQ/L; Status: F Test: POTASSIUM SERUM; Value: 4.6; Range: 3.5-5.1; Units: MEQ/L; Status: F Test: CHLORIDE LEVEL; Value: 104; Range: 98-107; Units: MEQ/L; Status: F Test: CARBON DIOXIDE LEVEL; Value: 24; Range: 21-32; Units: MEQ/L; Status: F Test: ANION GAP; Value: 11; Range: 8-16; Units: MEQ/L; Status: F Test: CALCIUM LEVEL; Value: 8.6; Range: 8.8-10.2; Abnormal: Below low normal; Units: MG/DL; Status: F Test Note: ; Units are mL/min/1.73 m2 Chronic Kidney Disease Staging per NKF: Stage I & II GFR >=60 Normal to Mildly Decreased Stage III GFR 30-59 Moderately Decreased Stage IV GFR 15-29 Severely Decreased Stage V GFR <15 Very Little GFR Left ESRD GFR <15 on BUILDING TRADES INSTRUCTOR Lab Order: CBC with Diff; SPEC'M 11/10/16 16:00 Test: WHITE BLOOD COUNT; Value: 6.2; Range: 4.0-10.0; Units: K/mm3; Status: F Test: RED BLOOD COUNT; Value: 4.69; Range: 4.30-6.10; Units: M/mm3; Status: F Test: HEMOGLOBIN; Value: 14.1; Range: 14.0-18.0; Units: g/dl; Status: F Test: HEMATOCRIT; Value: 44.1; Range: 42.0-52.0; Units: %; Status: F Test: MEAN CORPUSCULAR VOLUME; Value: 93.9; Range: 80.0-96.0; Units: fl; Status: F Test: MEAN CORPUSCULAR HEMOGLOBIN; Value: 30.0; Range: 27.0-33.0; Units: pg; Status: F Test: MEAN CORPUSCULAR HGB CONC; Value: 32.0; Range: 32.0-36.5; Units: g/dl; Status: F Test: RED CELL DISTRIBUTION WIDTH; Value: 13.6; Range: 11.5-14.5; Units: %; Status: F Test: PLATELET COUNT, AUTOMATED; Value: 205; Range: 150-450; Units: k/mm3; Status: F Test: NEUTROPHILS %; Value: 65.5; Range: 36.0-66.0; Units: %; Status: F Test: LYMPH %; Value: 19.2; Range: 24.0-44.0; Abnormal: Below low normal; Units: %; Status: F Test: MONO %; Value: 10.3; Range: 0.0-5.0; Abnormal: Above high normal; Units: %; Status: F Test: EOS %; Value: 1.3; Range: 0.0-3.0; Units: %; Status: F Test: BASO %; Value: 1.0; Range: 0.0-1.0; Units: %; Status: F Test: LARGE UNSTAINED CELL %; Value: 2.7; Range: 0.0-4.0; Units: %; Status: F Test: NEUTROPHILS #; Value: 4.1; Range: 1.8-7.7; Units: K/mm3; Status: F Test: LYMPH #; Value: 1.4; Range: 1.5-4.5; Abnormal: Below low normal; Units: K/mm3; Status: F Test: MONO #; Value: 0.6; Range: 0.0-0.8; Units: K/mm3; Status: F Test: EOS #; Value: 0.1; Range: 0.0-0.50; Units: K/mm3; Status: F Test: BASO #; Value: 0.1; Range: 0.0-0.2; Units: K/mm3; Status: F Test: LARGE UNSTAINED CELL #; Value: 0.2; Range: 0.0-0.4; Units: K/mm3; Status: F Lab Order: Cardiac Injury Profile; SPEC'M 11/10/16 16:00 Test: CPK CREATINE PHOSPHOKINASE; Value: 82; Range: 39-308; Units: U/L; Status: F Test: CK-MB VALUE MASS; Value: 1.7; Range: 0.0-3.6; Units: NG/ML; Status: F Test: MB/CK RELATIVE INDEX; Value: 2.07; Range: < OR =4; Status: F Test Note: ; DIAGNOSIS CRITERIA MMB ng/ml Relative Index (RI) NON-AMI < or = 5 N/A RAYMOND ZONE > 5 < or = 4 AMI > 5 > 4 Lab Order: Troponin; SPEC'M 11/10/16 16:00 Test: TROPONIN I; Value: 0.04; Range: < 0.10; Units: NG/ML; Status: F Test Note: ; Troponin I Reference Interval for [place] LOCI: 99th Percentile= 0.00-0.045 ng/ml Risk Stratification: <= 0.10 ng/ml Decreased Risk for Adverse Clinical Events. 0.10-1.50 ng/ml Increased Risk for Adverse Clinical Events. Evaluation of additional criterion and/or repeat testing in 2-6 hours is suggested to rule out myocardial damage. >= 1.50 ng/ml Indicative of Myocardial Injury. Lab Order: Thyroid Profile; SPEC'11/10/16 16:00 Test: T UPTAKE; Value: 41; Range: 33-40; Abnormal: Above high normal; Units: %; Status: F Test: THYROXINE (T4); Value: 5.3; Range: 4.5-12.0; Units: UG/DL; Status: F Test: FREE THYROXINE INDEX; Value: 2.2; Range: 1.4-3.8; Units: %; Status: F Test: THYROID STIMULATING HORMONE; Value: 2.990; Range: 0.358-3.740; Units: uIU/ML; Status: F Lab Order: Magnesium Level; 11/10/16 16:00 Test: MAGNESIUM LEVEL; Value: 2.7; Range: 1.8-2.4; Abnormal: Above high normal; Units: MG/DL; Status: F Lab Order: Urine Random,Creatinine; 11/10/16 22:01 Test: CREATININE,RANDOM URINE; Value: 208.0; Units: MG/DL; Status: F Lab Order: Urine Random,Potassium,; '11/10/16 22:01 Test: POTASSIUM RANDOM URINE; Value: 59.4; Units: MEQ/L; Status: F Lab Order: Urine,Osmolality; 11/10/16 22:01 Test: OSMOLALITY URINE; Value: 504; Range: 500-800; Units: MOSM/KG; Status: F Radiology Order: Chest, 2 View (pa\\E\\lat) Test: Chest, 2 View (pa\\E\\lat) REASON FOR EXAMINATION: sob; CHEST, TWO VIEWS:; ; HISTORY: Shortness of breath.; ; COMPARISON: 10/05/2016.; ; Linear density is present in the right lower lobe consistent with atelectasis.; The left lung is clear. The cardiac silhouette is enlarged. The thoracic aorta is; tortuous. The pulmonary vasculature is normal in appearance. The bony structure; is intact.; ; IMPRESSION:; 1. Right lower lobe atelectasis.; 2. Cardiomegaly.; ; ; ; Unreviewed; Radiology Order: US Lower Extremities Bilateral R/O DVT Test: US Lower Extremities Bilateral R/O DVT REASON FOR EXAMINATION: swelling; Clinical: Pain and swelling .; ; Technique: Raymond scale and color Doppler evaluation using linear high frequency; transducer.; ; Findings:; Ultrasound examination of the right and left lower extremity deep venous; structures from the common femoral vein to the popliteal vein demonstrates normal; compressibility flow and wave patterns in response to respiration and; augmentation. There is no evidence for deep venous thrombosis.; ; Impression:; No evidence for deep venous thrombosis bilaterally .; ; ; Signed by; Db Herndon MD 11/10/2016 04:45 P; Outcome: 11/10 17:08 Decision to Hospitalize by Provider. sd1 22:21 Discharge Assessment: Patient awake, alert and oriented x 3. No cognitive and/or mv5 functional deficits noted. Patient verbalized understanding of disposition instructions. patient administered narcotics - no. The following High Risk Discharge criteria are identified: None. Admitted to PCU accompanied by nurse, accompanied by tech, on monitor. Condition: stable. No special radiology studies were completed. Property :Personal belongings accompany Pt. 22:23 Patient left the ED. mv5 Signatures: Dispatcher [employer] EDAZ Isabel Rodriguez MD MD sd1 Shante Cooper, RN RN kpNj Gamboa, SHAYNE PSA ac Carlos Salamanca Lisa,RN RN lf1 Tressa Irvin RN RN hs1 Sol Evans, LAURA RN jc4 Dottie Cespedes Erica es5 Patchen, Olya, ADDICTION TREATMENT COUNSELOR ADDICTION TREATMENT COUNSELOR elp Mis, Melita am17 Felisha Martino JessicaRN RN ja5 Marisa ElizabethRN RN mv5 Corrections: (The following items were deleted from the chart) 15:18 15:08 Red Flag criteria, patient assessed and taken directly to a bed. Charge notified, lf1 pt. taken to room via wheelchair. lf1 Chart Complete MTDD
--- NOTE | 2016-11-13 20:31 | EDDOCDS ---
Physician Documentation [facility] Name: Jefe Rg Age: 61 yrs Sex: Male : 1955 Arrival Date: 11/10/2016 Time: 15:00 Bed Admit Hold Private MD: Disposition: 11/10/16 17:08 Hospitalization ordered by Jimi Mary for Inpatient Admission. Preliminary diagnosis are Unspecified atrial fibrillation, Acute kidney failure, Acute diastolic (congestive) heart failure. - Bed requested for PCU. - Status is Inpatient Admission. mv5 - Condition is Stable. - Problem is new. - Symptoms are unchanged. Historical: - Allergies: Clonidine (aphasia and dizziness); - Home Meds: 1. diltiazem HCl 180 mg Oral cpER 1 cap once daily (Last dose: 11/10/2016 06:30) 2. furosemide 40 mg Oral tab 2 tabs once daily (Last dose: 11/07/2016) 3. metoprolol ER 50 mg nightly (Last dose: 11/09/2016 22:30) 4. advil cold and flu Unknown 1 cap twice a day (Last dose: 11/10/2016 06:30) - PMHx: Hypertension; aortic dissection; aoritic aneurism; Atrial Fib; kidney disease; - PSHx: none; - Social history: Smoking status: Patient states was never smoker of tobacco. Patient uses No barriers to communication noted, The patient speaks fluent Slovenian. - Family history: No immediate family members are acutely ill. - : The pt / caregiver states he / she is not on anticoagulants. Home medication list is obtained from patients' pharmacy. - Exposure Risk Screening:: None identified. Vital Signs: 11/10 15:06 BP 128 / 112; Pulse 124; Resp 24; Pulse Ox 99% on R/A; elp 15:34 Temp 97.2; ja5 15:42 BP 117 / 76 (auto/); ja5 15:42 Pulse 100 MON; Pulse Ox 79% ; ja5 15:44 BP 117 / 83 (auto/); ja5 15:44 Pulse 108 MON; Pulse Ox 97% ; ja5 16:02 BP 122 / 90 (auto/); ja5 16:02 Pulse 106 MON; Pulse Ox 95% ; ja5 16:12 Pulse 118 MON; Pulse Ox 96% ; ja5 16:14 BP 128 / 100 (auto/); ja5 16:29 BP 112 / 80 (auto/); ja5 16:29 Pulse 110 MON; ja5 16:43 Pulse 124 MON; ja5 16:44 BP 164 / 85 (auto/); ja5 17:02 BP 135 / 80 (auto/); ja5 17:02 Pulse 124 MON; ja5 17:40 Weight 99.79 kg / 220 lbs; Height 5 ft. 9 in. (175.26 cm); ja5 18:50 BP 137 / 119; Pulse 113; Resp 24; Temp 97.5(O); Pulse Ox 95% on R/A; Pain 0/10; ja5 19:14 BP 127 / 105 (auto/); mv5 19:15 BP 127 / 105; Pulse 126 MON; Resp 18; Temp 96.8(O); Pulse Ox 94% ; mv5 19:29 BP 158 / 119 (auto/); mv5 19:30 Pulse 122 MON; Pulse Ox 96% ; mv5 19:44 BP 156 / 104 (auto/); mv5 19:44 Pulse 122 MON; Pulse Ox 92% ; mv5 19:57 BP 135 / 101 (auto/); mv5 19:58 Pulse 118 MON; Pulse Ox 97% ; mv5 19:59 BP 135 / 119 (auto/); mv5 20:00 Pulse 116 MON; Pulse Ox 96% ; mv5 20:14 BP 132 / 109 (auto/); mv5 20:15 Pulse 112 MON; Pulse Ox 94% ; mv5 20:45 Pulse 126 MON; Pulse Ox 95% ; mv5 21:00 Pulse 126 MON; Pulse Ox 95% ; mv5 21:15 Pulse 124 MON; Pulse Ox 93% ; mv5 21:30 Pulse 120 MON; Pulse Ox 94% ; mv5 21:46 Pulse 132 MON; Pulse Ox 96% ; mv5 17:40 Body Mass Index 32.49 (99.79 kg, 175.26 cm) [facility] MDM: 15:32 -Blood Culture (Adults Only), peripheral from different site, or from device/port/PICC sd1 etc. if present ordered. 15:32 Chipping Machine Operator/Pulse Ox/q 15 min VS ordered. sd1 15:32 IV Saline Lock ordered. sd1 15:32 Rhythm Strip to chart ordered. sd1 15:34 Chest, 2 View (pa\E\lat) Ordered. EDMS 15:34 -Blood Culture Ordered. EDMS 15:34 B-Type Natiuretic Peptide Ordered. EDMS 15:34 Basic Metabolic Profile Ordered. EDMS 15:34 CBC with Diff Ordered. EDMS 15:34 Cardiac Injury Profile Ordered. EDMS 15:34 Troponin Ordered. EDMS 15:34 Thyroid Profile Ordered. EDMS 15:34 Magnesium Level Ordered. EDMS 15:34 ECG WITH READING ER PHYS+CARDIAG ordered. EDMS 15:34 US Lower Extremities Bilateral R/O DVT Ordered. EDMS 15:39 -Blood Culture (Adults Only), peripheral from different site, or from device/port/PICC lbd etc. if present complete. 15:41 Misc Manager Of Software Order ordered. sd1 15:42 BLOOD CULTURES Ordered. EDMS 15:48 Misc Manager Of Software Order ordered. sd1 16:00 Misc Manager Of Software Order complete. lbd 16:00 Misc Manager Of Software Order complete. lbd 16:03 ECG WITH READING ER PHYS ordered. EDMS 16:20 Financial registration complete. zo 16:45 B-Type Natiuretic Peptide Reviewed. sd1 16:45 Basic Metabolic Profile Reviewed. sd1 16:45 CBC with Diff Reviewed. sd1 16:45 Magnesium Level Reviewed. sd1 16:45 Troponin Reviewed. sd1 17:02 Urine Random,Creatinine Ordered. EDMS 17:02 Urine Random,Potassium, Ordered. EDMS 17:02 Urine,Osmolality Ordered. EDMS 17:04 Basic Metabolic Profile Reviewed. sd1 17:04 Thyroid Profile Reviewed. sd1 17:04 Magnesium Level Reviewed. sd1 17:04 Cardiac Injury Profile Reviewed. sd1 17:04 Troponin Reviewed. sd1 17:46 Admission / Observation Status ordered. EDMS 17:46 2 GRAM SODIUM DIET ordered. EDMS 17:57 [facility] Payment Agreement was scanned into [employer] and attached to record. zo 18:15 TROPONIN Ordered. EDMS 19:31 CBC WITH DIFFERENTIAL Ordered. EDMS 19:31 COMPLETE COMPHRENSIVE METABOLI Ordered. EDMS 19:31 MAGNESIUM LEVEL Ordered. EDMS 19:31 TROPONIN Ordered. EDMS 21:18 TROPONIN Ordered. EDMS 11/11 18:13 T-Sheet-- Draft Copy was scanned into [employer] and attached to record. klr Signatures: Dispatcher [employer] EDMS Isabel Rodriguez, MD MD sd1 Denia Clark, Animal Behaviourist Unit lbd Silivno Gutierrez RN RN Carlos Petit Kathie klr Andrews, Steven, Vijaya Aragon RN, sa, RN RN ja5 Marisa Elizabeth RN RN mv5 The chart was reviewed and I authenticate all verbal orders and agree with the evaluation and treatment provided.Corrections: (The following items were deleted from the chart) 11/10 18:43 15:32 Oxygen at 4L/Min NC or Home dosage ordered. sd1 jc4 21:18 19:31 TROPONIN ordered. EDMS EDMS Attachments: 17:57 [facility] Payment Agreement zo 11/11 18:13 T-Sheet-- Draft Copy klr Chart Complete MTDD
[2016-11-13] MEDS: METOPROLOL SUCC (TopROL XL) 100MG *XL* TAB PO SCH (20:35)
[2016-11-14] VITALS: BP 106/78
[2016-11-14 04:00] VITALS: BP 117/85
[2016-11-14 05:29] LABS: BASO % 0.7 % (0.0-1.0); EOS # 0.1 K/mm3 (0.0-0.50); LARGE UNSTAINED CELL # 0.2 K/mm3 (0.0-0.4); LARGE UNSTAINED CELL % 3.6 % (0.0-4.0); LYMPH # 1.1 K/mm3 (1.5-4.5); LYMPH % 16.2 % (24.0-44.0); MEAN CORPUSCULAR HEMOGLOBIN 28.9 pg (27.0-33.0); MEAN CORPUSCULAR HGB CONC 31.7 g/dl (32.0-36.5); MEAN CORPUSCULAR VOLUME 91.3 fl (80.0-96.0); MONO # 0.6 K/mm3 (0.0-0.8); MONO % 9.5 % (0.0-5.0); NEUTROPHILS # 4.4 K/mm3 (1.8-7.7); NEUTROPHILS % 67.9 % (36.0-66.0); PLATELET COUNT, AUTOMATED 185 k/mm3 (150-450); RED CELL DISTRIBUTION WIDTH 13.7 % (11.5-14.5); WHITE BLOOD COUNT 6.5 K/mm3 (4.0-10.0)
[2016-11-14 05:35] LABS: INR 1.24
[2016-11-14] MEDS: SLF 3 ML SYR IV SCH ×3 (05:42→20:09)
[2016-11-14 05:48] LABS: ALBUMIN/GLOBULIN RATIO 0.79 (1.00-1.93); CREATININE FOR GFR 5.19 MG/DL (0.70-1.30); GLOMERULAR FILTRATION RATE 12.1 (>49); MAGNESIUM LEVEL 2.3 MG/DL (1.8-2.4); TOTAL PROTEIN 6.8 GM/DL (6.4-8.2)
--- NOTE | 2016-11-14 07:38 | IPNPDOC ---
Subjective Date Seen The patient was seen on 11/14/16. Subjective Chief Complaint/HPI The patient is a 61-year-old male admitted with a reason for visit of SOB. Events since last encounter Is feeling better today. First day since hospital admission where he does not appear anxious. No medical complaints today. General: Denies: Chills, Fatigue, Malaise, Night Sweats, Normal Appetite, Other Symptoms, ROS Unobtainable Constitutional: Denies: Chills, Fatigue, Fever, Lethargy, Malaise, Night Sweats , Other, Weakness, Weight Loss Eyes: Denies: Conjunctivae inflammation, Eyelid inflammation, Other, Pain, Redness, Vision change ENT: Denies: Dysphagia, Ear Pain, Epistaxis, Head Aches, Other Symptoms, Post Nasal Drip, Sinus Congestion, Sore Throat Skin: Denies: Breakdown, Bruising, Dry, Itching, Jaundice, Lesions, Nail Changes, Other, Rash Pulmonary: Denies: Cough, Dyspnea, Other Symptoms, Pleuritic Chest Pain Cardiovascular: Denies: Chest Pain, Edema, Lt Headedness, Orthopnea, Other Symptoms, Palpitations, Paroxysmal Noc. Dyspnea Gastrointestinal: Denies: Abdominal Pain, Constipation, Diarrhea, Hematochezia , Melena, Nausea, Other Symptoms, Vomiting Genitourinary: Denies: Dysuria, Frequency, Hematuria, Incontinence, Other Symptoms, Retention Psych: Denies: Anxiety Objective Physical Examination General Exam: Positive: Alert, Cooperative, No Acute Distress Eye Exam: Positive: Conjunctiva & lids normal, EOMI, PERRLA, Negative: Sclera icteric ENT Exam: Positive: Atraumatic, Mucous membr. moist/pink Neck Exam: Positive: Supple Chest Exam: Positive: Clear to auscultation, Normal air movement Heart Exam: Positive: Irregular Rhythm, Rate Normal Telemetry: Positive: Atrial fibrillation Abdomen Exam: Positive: Normal bowel sounds, Soft, Negative: Tenderness Psych Exam: Positive: Oriented x 3 Assessment /Plan Problems (1) Afib Status: Chronic Response to Treatment: Improving, Progressing Discussed With: Waiter/Waitress Bar, Patient Problem Specific Plan: Consult Specialist, Monitor Clinically Problem Text: Current regimen: norvasc 5, toprol XL 100, cardizem 180 xanax PRN. Gratifyingly does appear to be rate controlled at this time. Will continue to monitor on telemetry. his follow up appointment is tuesday 1:30pm [place]. anticoagulation started as per cardiology, vascular surgery dr. mckeon at [facility], and his outpatient guinea pig breeder dr. unger. no bridging necessary as per vascular and o/p cardiology (2) Anxiety Status: Resolved Discussed With: Patient Problem Specific Plan: Monitor Clinically Problem Text: Possibly secondary to EtOH abuse. xanax as needed. BB increased. (3) Shortness of breath Status: Resolved Discussed With: Patient Problem Specific Plan: Monitor Clinically Problem Text: Appears to be related to anxiety/panic attacks. Also likely KAYLA. States he was previously scheduled for sleep study however did not attend his appointment. Will check nocturnal oximetry. (4) HTN (hypertension) Status: Chronic Problem Specific Plan: Monitor Clinically Problem Text: BB increased, CCB. (5) Aortic dissection Status: Chronic Problem Text: Known history of chronic type B aortic dissection from at least 2013 originally diagnosed in [place]. Also known history of thoracic aortic aneurysm 5.2-5.4. CT chest noted. Blood pressure control. Discussed with his outpatient guinea pig breeder Dr. Unger and vascular surgeon Dr. Mckeon from [place]. Not a surgical candidate. (6) CKD (chronic kidney disease) Status: Chronic Problem Specific Plan: Consult Specialist, Repeat Labs Problem Text: baseline CKD IV-V discussed with nephrology, consultation appreciated reviewed records from [place], does appear essentially at baseline. He is not interested in dialysis if ever needed. (7) Chest pain Status: Resolved Discussed With: Waiter/Waitress Bar, Patient Problem Specific Plan: Consult Specialist, Monitor Clinically Problem Text: Troponins negative. Cardiology consultation appreciated. Further discussion with patient it appears he likely never actually had chest pains, but more consistent with panic/anxiety. Plan/VTE VTE Prophylaxis Ordered?: Yes Plan Diet: Continue Current Activity: Continue Current, Encourage Ambulation Diagnostics: Repeat Labs in AM Anticipated Discharge: Home Advance Directives: DNR VS, I&O, 24H, Thomas Vital Signs/I&O Vital Signs Date Time Temp Pulse Resp B/P Pulse Ox O2 Delivery O2 Flow Rate FiO2 11/14/16 04:00 96.1 83 19 117/85 94 Nasal Cannula I&O- Last 24 Hours up to 6 AM 11/14/16 06:00 Intake Total 1700 ml Output Total 2500 ml Balance -800 ml Laboratory Data 24H LABS Laboratory Tests 2 11/14/16 04:39: Blood Urea Nitrogen 79H, Creatinine 5.19H, Sodium Level 143, Potassium Level 4.0 , Chloride Level 106, Carbon Dioxide Level 24, Calcium Level 8.0L, Aspartate Amino Transf (AST/SGOT) 11L, Alanine Aminotransferase (ALT/SGPT) 29, Alkaline Phosphatase 89, Total Bilirubin 1.0, Total Protein 6.8, Albumin 3.0L, Albumin/ Globulin Ratio 0.79L, Anion Gap 13, White Blood Count 6.5, Red Blood Count 4.87 , Hemoglobin 14.1, Hematocrit 44.4, Mean Corpuscular Volume 91.3, Mean Corpuscular Hemoglobin 28.9, Mean Corpuscular Hemoglobin Concent 31.7L, Red Cell Distribution Width 13.7, Platelet Count 185, Neutrophils (%) (Auto) 67.9H, Lymphocytes (%) (Auto) 16.2L, Monocytes (%) (Auto) 9.5H, Eosinophils (%) (Auto) 2.0, Basophils (%) (Auto) 0.7, Neutrophils # (Auto) 4.4, Lymphocytes # (Auto) 1.1L, Monocytes # (Auto) 0.6, Eosinophils # (Auto) 0.1, Basophils # (Auto) 0.0, Glomerular Filtration Rate 12.1L, Large Unclassified Cells # 0.2, Large Unclassified Cells % 3.6, Magnesium Level 2.3, Prothromb Time International Ratio 1.24, Prothrombin Time 15.7H CBC/BMP Laboratory Tests 11/14/16 04:39 Calcium Level 8.0 L, Aspartate Amino Transf (AST/SGOT) 11 L, Alanine Aminotransferase (ALT/SGPT) 29, Alkaline Phosphatase 89, Total Bilirubin 1.0, Total Protein 6.8, Albumin 3.0 L, Red Blood Count 4.87, Mean Corpuscular Volume 91.3, Mean Corpuscular Hemoglobin 28.9, Mean Corpuscular Hemoglobin Concent 31.7 L, Red Cell Distribution Width 13.7, Neutrophils (%) (Auto) 67.9 H, Lymphocytes (%) (Auto) 16.2 L, Monocytes (%) (Auto) 9.5 H, Eosinophils (%) (Auto ) 2.0, Basophils (%) (Auto) 0.7, Neutrophils # (Auto) 4.4, Lymphocytes # (Auto) 1.1 L, Monocytes # (Auto) 0.6, Eosinophils # (Auto) 0.1, Basophils # (Auto) 0.0 Microbiology Microbiology 11/10/16 Blood Culture - Preliminary, Resulted No Growth after 72 hours. All specime... 11/10/16 Blood Culture - Preliminary, Resulted No Growth after 72 hours. All specime... SU BALLESTEROS MD Nov 14, 2016 07:37
[2016-11-14 08:00] VITALS: BP 128/90
[2016-11-14] MEDS: SENOKOT S TAB PO SCH ×2 (09:00→20:04)
[2016-11-14] MEDS: amLODIPine 5 MG TAB PO SCH (09:25)
[2016-11-14] MEDS: FUROSEMIDE 20 MG TAB PO SCH (09:25)
[2016-11-14] MEDS: diltiaZEM **CD** 180 MG CAP PO SCH (09:26)
[2016-11-14 12:00] VITALS: BP 128/80
--- NOTE | 2016-11-14 14:20 | IPN ---
DATE: 11/13/2016 Mr. Jefe Rg was seen yesterday, he was sitting in a chair. He is in no acute distress. He was complaining of feeling nervous about his condition. He also was having shortness of breath with activities and his blood pressure continued to be elevated and his heart rate continued to be fast. He, however, was not having any chest pain, orthopnea, paroxysmal nocturnal dyspnea (PND). There is no focal manifestation. There is no report of bleeding. He was started on Coumadin after clearance with his manager tax and his cardiothoracic surgeon. He does have a history of type II aortic dissection diagnosed in 2013 and he has extensive aneurysm involving most of the aorta. PHYSICAL EXAMINATION: The patient is alert and awake, in no acute distress and his vital signs when I saw him yesterday revealed a blood pressure of 120/100 with a pulse of about 123, respirations 22 and his maximum temperature was 96.4 degrees Fahrenheit with an oxygen saturation of 95% on room air. Head: Normocephalic, atraumatic. Neck is supple. No jugular venous distention (JVD). The lungs do not reveal any wheezing or crackles. The heart examination revealed normal irregularly irregular heart sounds without gallops. Point of maximal impulse (PMI) is slightly displaced inferiorly and laterally. There is no rub. The abdomen is soft and nontender, bowel sounds are active. Extremities reveal trace bilateral ankle edema. No cyanosis or clubbing. Neurological examination grossly is negative for focal deficit. LABS: CBC on 11/13/2016 revealed a WBC of 6.1, hemoglobin 13.6, hematocrit 14.9 and platelet 148,000. BMP on 11/13/2016 revealed a sodium of 139, potassium 3.9, chloride 105, CO2 24, BUN 81, creatinine 5.2. GFR 12, fasting glucose 101 and calcium 8.4. Liver enzymes reveal a total bilirubin of 0.9, AST 13, ALT 30, alkaline phosphatase 81, total bilirubin 6.5, albumin 3.0. PT was 15.7 with an INR of 1.24. Telemetry revealed atrial fibrillation with a rapid ventricular rate and nonspecific ST-T abnormalities. IMPRESSION: 1. Atrial fibrillation recently diagnosed with still uncontrolled ventricular rate even after increasing the beta junior, metoprolol succinate. He cannot tolerate it well and I will increase his calcium channel junior. He was given a 60 mg by mouth of short acting Cardizem and he will be monitored. He is now on Coumadin for prevention of thromboembolic event. We have discussed about further treatment such as AV ezekiel ablation and permanent pacemaker implantation or ablation for his atrial fibrillation. He is planning to see his manager tax in [place], [place] this coming Tuesday. 2. Hypertension. Not quite under control and he will continue with the calcium channel junior/Cardizem long acting as well as the metoprolol succinate and today I have added amlodipine a small dose. 3. History of type B aortic dissection diagnosed in 2013 in [place] and the patient was told by more than one cardiothoracic surgeon that he is not a candidate for surgery. He also has extensive aortic aneurysm. 4. History of bicuspid aortic valve. No significant stenosis. 5. Acute on chronic kidney disease, stable, and he is being also seen by nephrology. This seems to be stable, but according to nephrology is unlikely that his kidney function will improve. 6. History of anxiety, being addressed. It was a pleasure to participate in the care of Mr. Jefe Rg for his underlying cardiac condition. I will monitor him along with you. The case was discussed with hospitalist covering him.
--- NOTE | 2016-11-14 14:56 | IPN ---
DATE: 11/14/2016 Mr. Rg is seen this morning on his bed side. he is feeling much better today. His ventricular rate is now better controlled with adjustment in his meds. He denies any dyspnea, chest pain, nausea or vomiting. He has been ambulating without any difficulty. On physical exam his BP is 142/68 mmHg, Heart rate in 90's and respiratory rate 18/min. Head is atraumatic, neck supple and without JVD. Heart sounds are irregular and lungs clear to auscultation. Abdomen is soft and non tender. Bowel sounds are normal. Extremities have no cyanosis or clubbing. Neurological exam is normal and skin without any rash or ulcers. Today's lab show WBC count 6.5, hemoglobin 14.1 and hematocrit 44.4. Sodium 143 and potassium 4.0. BUN 79 and creatinine 5.19. The rest of his chemistry is unchanged. PROBLEM: 1. Atrial fibrillation with rapid ventricular rate. The patient has significant improvement in the ventricular rate and his symptoms have also improved. He has no further anxiety or panic attacks. He seems to be tolerating current medications very well. 2. Acute on chronic renal failure. Kidney function is essentially unchanged for the last three days. He has no uremic symptoms, and he most likely has advanced chronic kidney disease. I have discussed with him at length, and he understands that he will require dialysis in near future. He needs to get prepared for it with an AV fistula creation as an outpatient. I will defer that to his primary pipe organ tuner and repairer in [place]. 3. Congestive heart failure. The patient had slight decompensated volume status due to rapid atrial fibrillation. He has mild peripheral edema and remains on Lasix, which will be continued. 4. Hyperparathyroidism. The patient remains on calcitriol and his calcium and phosphorus are within normal range. [facility]
[2016-11-14 16:00] VITALS: BP 122/84
[2016-11-14] MEDS: WARFARIN SOD 5 MG TAB PO SCH (16:57)
[2016-11-14] MEDS: METOPROLOL SUCC (TopROL XL) 100MG *XL* TAB PO SCH (20:09)
[2016-11-14 20:24] VITALS: BP 128/90
[2016-11-15 00:24] VITALS: BP 124/89
[2016-11-15 00:35] LABS: CALCIUM LEVEL 7.8 MG/DL (8.8-10.2); CREATININE FOR GFR 4.78 MG/DL (0.70-1.30); GLOMERULAR FILTRATION RATE 13.3 (>49); MAGNESIUM LEVEL 2.1 MG/DL (1.8-2.4); POTASSIUM SERUM 3.6 MEQ/L (3.5-5.1)
[2016-11-15 03:52] VITALS: BP 136/92
[2016-11-15] MEDS: SLF 3 ML SYR IV SCH (05:31)
[2016-11-15 05:32] VITALS: BP 145/106
[2016-11-15 05:35] LABS: BASO % 0.5 % (0.0-1.0); EOS # 0.1 K/mm3 (0.0-0.50); EOS % 2.2 % (0.0-3.0); LARGE UNSTAINED CELL # 0.3 K/mm3 (0.0-0.4); LYMPH # 1.1 K/mm3 (1.5-4.5); LYMPH % 18.6 % (24.0-44.0); MEAN CORPUSCULAR HGB CONC 32.1 g/dl (32.0-36.5); MEAN CORPUSCULAR VOLUME 90.4 fl (80.0-96.0); MONO # 0.7 K/mm3 (0.0-0.8); MONO % 11.6 % (0.0-5.0); NEUTROPHILS # 3.6 K/mm3 (1.8-7.7); PLATELET COUNT, AUTOMATED 160 k/mm3 (150-450); RED CELL DISTRIBUTION WIDTH 13.7 % (11.5-14.5); WHITE BLOOD COUNT 5.8 K/mm3 (4.0-10.0)
[2016-11-15 05:38] LABS: INR 1.27
[2016-11-15 06:05] LABS: ALBUMIN/GLOBULIN RATIO 0.83 (1.00-1.93); BILIRUBIN,TOTAL 1.5 MG/DL (0.2-1.0); CALCIUM LEVEL 8.2 MG/DL (8.8-10.2); CREATININE FOR GFR 4.71 MG/DL (0.70-1.30); GLOMERULAR FILTRATION RATE 13.5 (>49); POTASSIUM SERUM 3.5 MEQ/L (3.5-5.1); TOTAL PROTEIN 6.6 GM/DL (6.4-8.2)
[2016-11-15] MEDS ORDERED: POTASSIUM CHLORIDE 10 MEQ SR TABLET PO ONE (07:45)
[2016-11-15 08:00] VITALS: BP 135/105
[2016-11-15] MEDS ORDERED: CARD120C3 PO (08:06)
[2016-11-15] MEDS ORDERED: CALC1CAP31 PO (08:06)
[2016-11-15] MEDS ORDERED: COUM1TAB17 PO (08:06)
[2016-11-15] MEDS ORDERED: FURO20TA2 PO (08:06)
[2016-11-15] MEDS ORDERED: ALPR0.5T3 PO (08:06)
[2016-11-15] MEDS ORDERED: POTA10CA PO (08:06)
[2016-11-15] MEDS ORDERED: AMLO5TAB2 PO (08:06)
[2016-11-15] MEDS ORDERED: METO-209 PO (08:06)
--- NOTE | 2016-11-15 08:25 | IPN ---
DATE: 11/15/2016 Mr. Rg tells me that he is feeling much better and he insists on going home today. He denies any chest pain or significant shortness of breath with relatively mild activity in the hospital. VITAL SIGNS: Blood pressure was 124/89 at midnight. It is up 145/106 this morning, but it was not with sufficient rest. Heart rate is principally in the 80s to occasional 100s with activity. He is afebrile. Saturation is 98% on room air. His fluid balance yesterday was about 2 liters negative. Weight is documented at 94.5 kg. He is alert, oriented and appropriate. His JVP is not up. Lungs are rather clear to auscultation. Heart exam reveals irregularly, irregular rhythm. There is systolic ejection murmur at the base. I do not appreciate any gallop or rub. Abdomen is soft and nontender. There is no peripheral edema. Laboratory irizarry, potassium is 3.5, BUN 70, creatinine 4.7 for GFR 13 and glucose 91, albumin 3.0. CBC hemoglobin 13.7, hematocrit 42.6, and platelet count 160,000. His INR is 1.3. ASSESSMENT/PLAN: Mr. Rg is a rather complicated patient who as a multitude of medial problems. He has chronic type B aortic dissection, recent onset of atrial fibrillation complicated with congestive heart failure (CHF) and acute on chronic renal insufficiency stage IV. During this hospitalization, the doses of beta-junior and Cardizem were increased and now he seems to be reasonably well rate controlled for his atrial fibrillation. He also was started on Coumadin even though the INR remains subtherapeutic. This was after a consultation with his primary clinical statistics manager, Dr. Garcia, in [place] and also Dr. Goodwin, who is his vascular surgeon. He has a scheduled followup appointment with Dr. Garcia tomorrow to discuss further management options. He refuses consideration of staying another day in the hospital. I do believe this is quite acceptable. I am afraid the he is not fully aware of the gravity of his situation. Nevertheless, I believe that he can be discharged and further management can be done in [facility] where his primary team resides.
[2016-11-15] MEDS: SENOKOT S TAB PO SCH (08:27)
[2016-11-15 08:32] VITALS: BP 145/106
[2016-11-15] MEDS: amLODIPine 5 MG TAB PO SCH (08:32)
[2016-11-15] MEDS: FUROSEMIDE 20 MG TAB PO SCH (08:32)
[2016-11-15] MEDS: CALCITRIOL 0.25 MCG CAP (S0169) PO SCH (08:32)
--- NOTE | 2016-11-15 09:38 | NOCOX ---
DATE OF STUDY: The night of 11/14/2016 and the morning of 11/15/2016 ORDERING PROVIDER: Dr. Jefe Motley The study is performed on room air. Mean oxygen saturation for the study 93%. Multiple areas of artifact are noted. The pattern obtained is most consistent with a Meet-Watkins pattern. The lowest reliably recorded oxygen saturation briefly about 80% to 81%. IMPRESSION: Abnormal oxygen saturation tracing, as outlined above. Please correlate clinically.
--- NOTE | 2016-11-15 13:38 | DS.PDOC ---
Discharge Summary General Date of Admission Nov 10, 2016 at 17:38 Date of Discharge Nov 15, 2016 at 11:25 Specialist/Consultants Involve: EARLE SAMSON MD Specialist/Consultants Involve Nephrology: Dr. Charis BOWDEN FOR PCP D/W O/P UM RN DR GOMEZ AT [facility], VASCULAR SURGERY DR EDWARD Discharge Summary PROCEDURES PERFORMED DURING STAY: [None.] CHIEF COMPLAINT: SOB DISCHARGE DIAGNOSES: 1. AFIB WITH RVR 2. CHRONIC TYPE B AORTIC DISSECTION 3. ANXIETY 4. CKD 5. HYPERTENSION 6. CHF DIASTOLIC DYSFUNCTION HISTORY OF PRESENT ILLNESS/HOSPITAL COURSE: Patient is a 61-year old male presenting for shortness of breath. Patient has a known history of chronic type aortic dissection and afib. He was very recently discharged from [facility] where he was seen and evaluated by cardiology and vascular surgery. He was driving back to [place] when he felt very short of breath with possible palpitations. In the ED he was found to be in rapid afib and subsequently admitted for further evaluation and treatment. Cardiology was consulted for further assistance. His outpatient broadcast traffic coordinator was contacted for further assistance as well. There was concern for his aortic dissection, however this was deemed to be chronic as per vascular surgery at [facility]. He was also deemed not to be a surgical candidate. His rate was ultimately controlled with beta blockers and calcium channel blockers. He was anxious which addressed with as needed alprazolam. Upon discussion with cardiology - both inpatient and outpatient, and his vascular surgeon, anticoagulation was implemented in the form of warfarin, with no bridging recommended. He was also noted to be in acute /chronic kidney injury on admission. As per records from [facility], he is baseline CKD III-IV. Nephrology was consulted for further assistance. His renal function did improve as his tachycardia improved. He does follow with a senior energy trader in [place]. Patient was adamant to leave today, he does have a follow upappointment tomorrow with his broadcast traffic coordinator DR. Gomez. Discussed with cardiology this morning, and are agreeable with patient being discharged today with instructions as indicated. DISCHARGE MEDICATIONS: Please see below. ALLERGIES: Please see below. PHYSICAL EXAMINATION ON DISCHARGE: VITAL SIGNS: Please see below. GENERAL: NAD HEENT: NC/AT, EOMI, PERRL NECK: supple CARDIOVASCULAR EXAMINATION: +S1S2, irregularly irregular RESPIRATORY EXAMINATION: CTA B/L ABDOMINAL EXAMINATION: soft, NT, +BS EXTREMITIES: no edema SKIN: no rashes NEUROLOGICAL EXAMINATION: no gross focal deficits PSYCHIATRIC EXAMINATION: AAOx3 LABORATORY DATA: Please see below. DISCHARGE CONDITION: [Stable]. DISPOSITION: Discharge home ACTIVITY: As tolerated, avoid strenuous activity pending follow up with cardiology DIET: 2 gram sodium, renal ITEMS TO FOLLOWUP ON OUTPATIENT: 1. INR DISCHARGE PLAN AND INSTRUCTIONS: 1. cardiology as scheduled for 11/16/16 2. pcp in 1-5 days 3. nephrology in 1-7 days TIME SPENT ON DISCHARGE: Greater than 30 minutes. Vital Signs/I&Os Vital Signs Date Time Temp Pulse Resp B/P Pulse Ox O2 Delivery O2 Flow Rate FiO2 11/15/16 08:32 106 145/106 11/15/16 08:00 96.1 20 95 11/15/16 05:32 Room Air I&O- Last 24 Hours up to 6 AM 11/15/16 06:00 Intake Total 480 ml Output Total 2525 ml Balance -2045 ml Laboratory Data Labs 24H Laboratory Tests 2 11/14/16 23:59: Anion Gap 13, Blood Urea Nitrogen 72H, Creatinine 4.78H, Sodium Level 142, Potassium Level 3.6, Chloride Level 106, Carbon Dioxide Level 23, Calcium Level 7.8L, Glomerular Filtration Rate 13.3L, Magnesium Level 2.1 11/15/16 04:49: Anion Gap 14, Blood Urea Nitrogen 70H, Creatinine 4.71H, Sodium Level 143, Potassium Level 3.5, Chloride Level 105, Carbon Dioxide Level 24, Calcium Level 8.2L, Glomerular Filtration Rate 13.5L, Magnesium Level 2.0, Aspartate Amino Transf (AST/SGOT) 8L, Alanine Aminotransferase (ALT/SGPT) 23, Alkaline Phosphatase 83, Total Bilirubin 1.5H, Total Protein 6.6, Albumin 3.0L, Albumin/ Globulin Ratio 0.83L, White Blood Count 5.8, Red Blood Count 4.71, Hemoglobin 13.7L, Hematocrit 42.6, Mean Corpuscular Volume 90.4, Mean Corpuscular Hemoglobin 29.0, Mean Corpuscular Hemoglobin Concent 32.1, Red Cell Distribution Width 13.7, Platelet Count 160, Neutrophils (%) (Auto) 62.0, Lymphocytes (%) (Auto) 18.6L, Monocytes (%) (Auto) 11.6H, Eosinophils (%) (Auto ) 2.2, Basophils (%) (Auto) 0.5, Neutrophils # (Auto) 3.6, Lymphocytes # (Auto) 1.1L, Monocytes # (Auto) 0.7, Eosinophils # (Auto) 0.1, Basophils # (Auto) 0.0, Large Unclassified Cells # 0.3, Large Unclassified Cells % 5.0H, Prothromb Time International Ratio 1.27, Prothrombin Time 16.0H CBC/BMP Laboratory Tests 11/14/16 23:59 Calcium Level 7.8 L 11/15/16 04:49 Calcium Level 8.2 L, Aspartate Amino Transf (AST/SGOT) 8 L, Alanine Aminotransferase (ALT/SGPT) 23, Alkaline Phosphatase 83, Total Bilirubin 1.5 H, Total Protein 6.6, Albumin 3.0 L, Red Blood Count 4.71, Mean Corpuscular Volume 90.4, Mean Corpuscular Hemoglobin 29.0, Mean Corpuscular Hemoglobin Concent 32.1 , Red Cell Distribution Width 13.7, Neutrophils (%) (Auto) 62.0, Lymphocytes (% ) (Auto) 18.6 L, Monocytes (%) (Auto) 11.6 H, Eosinophils (%) (Auto) 2.2, Basophils (%) (Auto) 0.5, Neutrophils # (Auto) 3.6, Lymphocytes # (Auto) 1.1 L, Monocytes # (Auto) 0.7, Eosinophils # (Auto) 0.1, Basophils # (Auto) 0.0 Microbiology Microbiology 11/10/16 Blood Culture - Preliminary, Resulted No Growth after 72 hours. All specime... 11/10/16 Blood Culture - Preliminary, Resulted No Growth after 72 hours. All specime... Medications Scheduled Amlodipine Besylate (Amlodipine Besylate) 5 Mg Tab 5 MG PO DAILY Calcitriol (Calcitriol) 0.25 Mcg Cap 0.25 MCG PO MoWeFr@[id number] Diltiazem Hcl (Cardizem Cd) 120 Mg Cap 240 MG PO QAM Furosemide (Furosemide) 20 Mg Tab 60 MG PO DAILY Metoprolol Succinate (Metoprolol Succinate ER) 100 Mg Tab 100 MG PO QHS Potassium Chloride (Klor-Con M10) 10 Meq Tabcr 20 MEQ PO DAILY Warfarin Sod (Coumadin) 5 Mg Tab 5 MG PO DAILY@17 Scheduled PRN Alprazolam (Alprazolam) 0.5 Mg Tab 0.5 MG PO Q4HP PRN PRN ANXIETY Allergies Coded Allergies: Clonidine (Unverified Allergy, Unknown, APHASIA, DIZZINESS, 11/10/16) SU BALLESTEROS MD Nov 15, 2016 13:38
--- NOTE | 2016-11-15 18:07 | IPN ---
DATE: 11/15/2016 SUBJECTIVE: Mr. Rg is seen this morning on his bedside. He is feeling better and is currently sitting in the chair. He reports that he woke up at 2:00 a.m., due to some noise in the room. However, then he could not sleep. He denies any chest pain, nausea, fever or chills. He remains in atrial fibrillation but denies any palpitations. PHYSICAL EXAMINATION: VITAL SIGNS: Temperature 96.1 degrees Fahrenheit, heart rate 99 per minute and respiratory rate 20 per minute. Blood pressure 135/105 mmHg and oxygen saturation 95% on room air. Intake and output records from yesterday showed total intake 970 and output 3000 mL. Today he weighed 94.5 kg. HEENT: His head is atraumatic. Eyes, ears, nose and throat are unremarkable. NECK: Neck veins are not abnormally distended. Neck is supple and without thyroid enlargement. HEART: Sounds are irregular in rhythm. LUNGS: Clear to auscultation. ABDOMEN: Soft and nontender and without palpable organomegaly. EXTREMITIES: Have no cyanosis or clubbing. Some leg edema is present. LABORATORY DATA: Today's labs show WBC count 5.8, hemoglobin 13.7 and hematocrit 42.6. Sodium 143 and potassium 3.5. BUN 70, creatinine 4.71. Calcium level is 8.2. PROBLEMS: 1. Acute renal failure superimposed on chronic kidney disease. The patient does have some improvement in his kidney function as his atrial fibrillation is better controlled and blood pressure is better now. There is no emergent indication for dialysis. The patient will followup as an outpatient with his primary rouge sifter in [place]. 2. Congestive heart failure. Most likely this was related to rapid atrial fibrillation and the patient is diuresing very well. He should continue with chronic diuretic at discharge. 3. Atrial fibrillation with rapid ventricular rate. His ventricular rate is much better controlled and his symptoms have improved. The patient is being followed by cardiology and medications have been adjusted. 4. Hypokalemia. We have already given him a dose of potassium chloride 40 mEq. The patient should eat regular potassium diet. He will remain on chronic diuretic use and I have also increased his potassium supplement. He will continue with 20 mEq once a day at discharge. 5. Disposition: From renal standpoint, the patient can be discharged to home and he will followup with his primary rouge sifter and primary silk screener in [place].
--- NOTE | 2016-11-16 07:29 | IPN ---
DATE: 11/14/2016 Mr. Jefe Rg was seen earlier today. He was sitting in the chair and having breakfast. He denies any complaint of chest pain and he stated that his shortness of breath has improved and he is feeling much better. He was able to get a good night of sleep. He has no orthopnea or paroxysmal nocturnal dyspnea. He denies any bleeding. Yesterday, his blood pressure was elevated, and his atrial fibrillation was not under control. He was given an extra dose of 60 mg of short acting Cardizem and started on amlodipine. Since then, his heart rate has been under control and his blood pressure has improved significantly. PHYSICAL EXAMINATION: The patient is alert and oriented, in no acute distress at rest. VITAL SIGNS: His vital signs this morning when I saw him revealed a blood pressure of 128/90 with a pulse that varies between 73 up to 103, respirations 18, and temperature is 96.1 degrees Fahrenheit with an oxygen saturation of 92 to 94% on room air. HEAD: Examination of the head is normocephalic, atraumatic. NECK: Supple. No jugular venous distention (JVD). LUNGS: The lungs do not reveal any wheezing or crackles. HEART: The heart examination revealed irregularly irregular heart sounds without gallops. The point of maximum impulse (PMI) is slightly displaced inferiorly. There is no rub. ABDOMEN: Soft and nontender. Bowel sounds are active. EXTREMITIES: Trace pedal ankle edema. NEUROLOGIC: Examination is grossly negative for focal deficit. LABORATORY DATA: CBC done today revealed a WBC of 6.5, hemoglobin 14.1, hematocrit 44.4 and platelets 105,000. BMP today revealed a sodium of 143, potassium 4.0, chloride 106, CO2 of 24, BUN 79, creatinine 5.19, GFR 12.1, fasting glucose 105, calcium 8.0, magnesium is 2.3. Liver enzymes reveal a total bilirubin of 1.0, AST 11, ALT 29, alkaline phosphatase 89, total protein 6.8, and albumin 3.0. PT today is 15.7 with an INR of 1.24. IMPRESSION: 1. Atrial fibrillation, persistent and recently diagnosed about one month ago. His heart rate seems to now be under better control with the higher dose of the Cardizem and the beta junior/metoprolol succinate, and I will continue the same. He is on Coumadin for prevention of thromboembolic event, recently started. He will be monitored and he has an appointment to see his liquid hydrogen plant operator in [place] this coming Tuesday. He does not tolerate well the atrial fibrillation, he is thinking about proceeding with ablation for the atrial fibrillation or AV ezekiel ablation and permanent pacemaker implantation if needed. 2. Hypertension. Under control. He will continue with the Cardizem, the beta junior, and the amlodipine. 3. History of type B aortic dissection and extensive aortic aneurysm and underlying bicuspid aortic valve. He was told in [place] in 2013 that he is not a candidate for surgery for his aortic dissection and he was seen last month by cardiothoracic surgeon at [facility], he again was told that he is not a candidate for surgery, but he will be monitored. In the meantime, he is under good blood pressure control, and he should void weight lifting more than 30 pounds. 4. Acute on chronic kidney disease, stable, but poor prognosis. He is also being monitored by nephrology. It was a pleasure to participate in the care of Mr. Jefe Rg for his underling cardiac condition. I will continue to monitor along with you as needed while in the hospital. Tomorrow, Dr. Arreaga will be seeing him. The case was discussed earlier with his hospitalist.
[2016-11-16] MEDS ORDERED: POTASSIUM CHLORIDE 10 MEQ SR TABLET PO SCH (09:00)
== END 2016-11-15 11:25 | disposition home health service (06) | DRG 201 ==
LOC: M ED 15:00 → M ED INP 17:38 → M PCU 22:33
PROVIDERS: ADMIT Internal Medicine; ATTEND Internal Medicine
DX: I48.0 Paroxysmal atrial fibrillation (principal); I71.01 Dissection of thoracic aorta; N17.9 Acute kidney failure, unspecified; I13.0 Hypertensive heart and chronic kidney disease with heart failure and stage 1 through stage 4 chronic kidney disease, or unspecified chronic kidney disease; I50.32 Chronic diastolic (congestive) heart failure; N18.4 Chronic kidney disease, stage 4 (severe); I71.2 Thoracic aortic aneurysm, without rupture; E87.2 Acidosis; F41.0 Panic disorder [episodic paroxysmal anxiety]; R07.9 Chest pain, unspecified; E87.6 Hypokalemia; Z88.8 Allergy status to other drugs, medicaments and biological substances; Z79.899 Other long term (current) drug therapy

== ENCOUNTER 2016-11-29 16:02 | Inpatient (IN) | payer BC ==
[~2016-11-29] VITALS: Ht 177.8 cm; Wt 91.5 kg
[~2016-11-29 16:02] MED LIST: ADVICAP PO; ALPR0.5T3 PO; AMLO5TAB2 PO; CALC1CAP31 PO; CARD120C3 PO; COUM1TAB17 PO; DILT0.05 PO; FURO20TA2 PO; LASI40TA PO; METO-207 PO; METO-209 PO; POTA10CA PO
[2016-11-29] MEDS: FUROSEMIDE 100 MG/10 ML VIAL (J1940) IV SCH (17:00)
[2016-11-29 17:45] VITALS: BP 137/95
[2016-11-29 17:46] VITALS: BP 155/97
[2016-11-29] MEDS ORDERED: PERCOCET 5MG/325MG TAB PO PRN (19:45)
[2016-11-29] MEDS ORDERED: ONDANSETRON 4 MG TAB (S0181) PO PRN (19:45)
[2016-11-29] MEDS ORDERED: ACETAMINOPHEN TAB 650MG DOSE (2X325MG) PO PRN (19:45)
[2016-11-29] MEDS ORDERED: ONDANSETRON 4MG/2ML VIAL (J2405) IV PRN (19:45)
[2016-11-29] MEDS ORDERED: ALPR0.5T3 PO (20:39)
[2016-11-29] MEDS ORDERED: CALC1CAP31 PO (20:39)
[2016-11-29] MEDS ORDERED: AMLO10TA2 PO (20:39)
[2016-11-29] MEDS ORDERED: METO-207 PO (20:43)
[2016-11-29] MEDS ORDERED: WARF4TAB52 PO (20:43)
[2016-11-29] MEDS ORDERED: FURO20TA2 PO (20:43)
[2016-11-29] MEDS ORDERED: DILT300C46 PO (20:43)
[2016-11-29] MEDS ORDERED: POTA20TA PO (20:43)
[2016-11-29] MEDS ORDERED: METO-209 PO (20:43)
[2016-11-29] MEDS ORDERED: ADVITAB PO (20:44)
[2016-11-29 20:50] VITALS: BP 126/92
--- NOTE | 2016-11-29 20:52 | HPEPDOC ---
Medical History and Physical Date of Admission Nov 29, 2016 at 17:24 History and Physical HISTORY AND PHYSICAL Date of admission: 11/29/2016 PCP: None Chief complaint: Short of breath HPI: 61-year-old male with chronic A. fib, chronic systolic heart failure, chronic kidney disease stage IV, COPD, hypertension, chronic type B aortic dissection, panic disorder who presented to the [facility] with shortness of breath. He states that it is beginning progressively worse for several days, and that he had shortness of breath and chest pain. He states that the shortness of breath and chest pain happens every time that his varnish blender stopped his Norvasc. Of note, the varnish blender stopped his Norvasc on . Also of note, the patient had previously been on 60 mg of Lasix, but he told his slab miller operator that he felt dry, and despite his slab miller operator not entirely recommending that, the patient decreased his Lasix from 60 mg to 20 mg on Tuesday. The patient states that the shortness of breath got so bad today that he had to stop multiple times to sit down and catch his breath. He states that nothing made it better or worse. In the [facility] ED, he received 100 mg of Lasix. He was transferred to our facility as he does have stage 4-5 kidney disease, and there was concern that with diuresis he may require dialysis. Past medical history: Chronic A. fib, chronic systolic heart failure, chronic kidney disease stage IV, COPD, hypertension, chronic type B aortic dissection, panic disorder Past surgical history: None Family history: Unknown Social history: The patient denies tobacco, drug, and alcohol use Allergies: He reportedly had a reaction of confusion and dizziness when he took clonidine Review of systems: General: Positive for chills. Negative for fever Eyes: Negative for vision changes and ocular discharge ENT: Negative for sore throat. Positive for nosebleed Cardiovascular: Negative for chest pain. Positive for palpitations Respiratory: Negative for cough. Positive for shortness of breath GI: Negative for nausea, vomiting. Positive for diarrhea Musculoskeletal: Negative for neck and back pain Neuro: Negative for headache, dizziness, tingling. He reports that on his feet get really cold at work, they feel numb. Psych: Negative for depression and suicidal ideation Endocrine: Negative for polyuria : Negative For dysuria Heme: Negative for bruising and bleeding Home meds: See below Physical exam: Vital signs: Vital Sign - Last 24 Hours 11/29/16 11/29/16 11/29/16 17:45 17:46 18:00 Temp 96.5 Pulse 85 Resp 18 B/P 137/95 155/97 Pulse Ox 97 O2 Delivery Room Air Gen.: awake, alert, no acute distress Eyes: Extraocular movements intact, normal sclera ENT: Moist mucous membranes Cardiovascular: Irregularly irregular Lungs: clear to auscultation bilaterally, no rales, rhonchi, or wheeze Abdomen: Soft, NT/ND, normal BS Musculoskeletal: normal range of motion Extremities: No peripheral edema Neuro: alert and oriented 3, normal speech, no focal deficits Psych: Normal mood with congruent affect Labs and radiology: See below BUN 67, creatinine 4.6 BNP greater than 2300 UA and UDS are unremarkable CT of the chest shows bilateral pleural effusions, with the right being greater than left. It also shows no change in his thoracic aortic aneurysm. Assessment and plan: 61-year-old male with chronic A. fib, chronic systolic heart failure, chronic kidney disease stage IV, COPD, hypertension, chronic type B aortic dissection, panic disorder who presented to the [facility] ER with shortness of breath. He is admitted with acute on chronic systolic heart failure. 1. Acute on chronic systolic heart failure: The patient had a recent echo at [facility], where his EF was noted to be 50%. Chest imaging does reveal bilateral pleural effusions. The patient also endorses having recently decreased his Lasix. He states that 2 months ago, he required thoracentesis on his right side. At this time, we will attempt to diuresis him with Lasix 60 mg IV twice a day, as the patient was previously taking Lasix 60 mg by mouth. We also will follow ins and outs and daily weights. If we are not able to improve his shortness of breath and an pleural effusions with Lasix, we may have to consider thoracic surgery consult. Continue home potassium replacement. 2. Chronic kidney disease stage IV: The patient's kidney function when he was admitted approximately 2 weeks ago was similar to how it is now, in the upper fours and even low fives. I have spoken to Dr. Vizcaino, who will see him in consultation tomorrow morning, to help us manage his fluid status and monitor his kidney function while he is being diuresed. Continue home Rocaltrol. 3. Chronic A. fib: The patient is currently rate controlled. We will continue his home diltiazem and metoprolol. The patient states that his INR was checked today, and it was noted to be 3.8. For this reason, we will hold his home Coumadin and check daily INRs. 4. COPD: The patient has no wheezes on exam, and he reports no home medications. We'll monitor this closely. 5. Hypertension: We will continue the patient's home diltiazem and metoprolol. Although the patient states that the reason he gets short of breath and has chest pain is because Norvasc has been stopped, we will continue to hold the Norvasc as was recommended by his varnish blender. I agree with his varnish blender, that there is no value and even potential harm in the patient being on 2 different calcium channel blockers. 6. Chronic type B aortic dissection: The patient has been evaluated by vascular surgeon at [facility], and has been told that he is not a surgical candidate. CT of the chest at [facility] shows no change in the thoracic aortic aneurysm. We will continue the beta junior. 7. Panic disorder: Continue home Xanax. DVT prophylaxis: Patient reports an INR level of 3.8 today on his home Coumadin. We will hold his home Coumadin and trend daily INRs. Dispo: admit as an inpatient to the service of Dr. Morris CODE STATUS: DNR/DNI Vital Signs see above Home Medications Scheduled Amlodipine Besylate (Amlodipine Besylate) 10 Mg Tab 10 MG PO DAILY Calcitriol (Calcitriol) 0.25 Mcg Cap 0.25 MCG PO 3XW PATIENT STATES HE ONLY HAS ABOUT 5 PILLS LEFT AND THEN IS OKAY TO STOP PER [facility], THEY STATED HIS LEVELS LOOKED OKAY Diltiazem Hcl (Diltiazem HCl ER) 300 Mg Cap 300 MG PO DAILY Furosemide (Furosemide) 20 Mg Tab 20 MG PO DAILY Metoprolol Succinate (Metoprolol Succinate ER) 50 Mg Tab 50 MG PO QAM Metoprolol Succinate (Metoprolol Succinate ER) 100 Mg Tab 100 MG PO QHS Potassium Chloride (Klor-Con M20) 20 Meq Tabcr 20 MEQ PO DAILY Warfarin Sod (Warfarin Sodium) 1 Mg Tab 1.5 MG PO QPM Scheduled PRN (Advil Cold & Sinus 30-200 mg) 1 Tab Tab 1 TAB PO PRN PRN PRN COLD/CONGESTION Alprazolam (Alprazolam) 0.5 Mg Tab 0.5 MG PO Q4H PRN PRN ANXIETY Allergies Coded Allergies: Clonidine (Unverified Allergy, Unknown, APHASIA, DIZZINESS, 11/10/16) BRANDT MYRICK Nov 29, 2016 20:52
[2016-11-29] MEDS ORDERED: ALPRAZolam 0.5 MG TAB PO PRN (22:00)
[2016-11-29] MEDS: METOPROLOL SUCC (TopROL XL) 100MG *XL* TAB PO SCH (22:53)
[2016-11-29 23:59] VITALS: BP 130/60
[2016-11-30] MEDS ORDERED: SLF 3 ML SYR IV PRN (01:30)
[2016-11-30 04:45] VITALS: BP 137/91
[2016-11-30] MEDS: SLF 3 ML SYR IV SCH ×3 (04:56→20:29)
[2016-11-30 05:42] LABS: BASO % 0.9 % (0.0-1.0); EOS # 0.2 K/mm3 (0.0-0.50); LARGE UNSTAINED CELL # 0.2 K/mm3 (0.0-0.4); LARGE UNSTAINED CELL % 3.4 % (0.0-4.0); LYMPH # 0.9 K/mm3 (1.5-4.5); LYMPH % 17.1 % (24.0-44.0); MEAN CORPUSCULAR HEMOGLOBIN 28.9 pg (27.0-33.0); MEAN CORPUSCULAR HGB CONC 32.1 g/dl (32.0-36.5); MEAN CORPUSCULAR VOLUME 90.1 fl (80.0-96.0); MONO # 0.5 K/mm3 (0.0-0.8); MONO % 10.7 % (0.0-5.0); NEUTROPHILS # 3.2 K/mm3 (1.8-7.7); NEUTROPHILS % 63.9 % (36.0-66.0); PLATELET COUNT, AUTOMATED 251 k/mm3 (150-450); RED CELL DISTRIBUTION WIDTH 13.5 % (11.5-14.5)
[2016-11-30 05:58] LABS: CALCIUM LEVEL 8.8 MG/DL (8.8-10.2); CREATININE FOR GFR 4.5 MG/DL (0.70-1.30); GLOMERULAR FILTRATION RATE 14.3 (>49); MAGNESIUM LEVEL 2.4 MG/DL (1.8-2.4); POTASSIUM SERUM 4.2 MEQ/L (3.5-5.1)
[2016-11-30 06:00] LABS: INR 3.36
[2016-11-30 08:00] VITALS: BP 138/98
[2016-11-30] MEDS: diltiaZEM **CD** 180 MG CAP PO SCH (08:49)
[2016-11-30] MEDS: METOPROLOL SUCC (TopROL XL) 50MG **XL** TAB PO SCH (08:50)
[2016-11-30] MEDS: FUROSEMIDE 100 MG/10 ML VIAL (J1940) IV SCH ×2 (08:50→16:54)
[2016-11-30] MEDS ORDERED: POTASSIUM CHLORIDE 10 MEQ SR TABLET PO SCH (09:00)
[2016-11-30 11:42] VITALS: BP 130/86
--- NOTE | 2016-11-30 14:30 | IPN ---
DATE: 11/30/2016 Mr. Rg is feeling much better this morning. He has been up walking around and feels less short of breath. Not describing chest pain. Temperature 96.9. Pulse 80. Respiratory rate 18. Blood pressure 130/86. 96% on room air. Ins and outs notable for a negative fluid balance of -1635. Weight is 96.1 kg. He is awake, appropriately interactive, pleasantly conversant. Quite talkative. Breathing is symmetrically diminished. I:E ratio 1:3. No wheezes, rales or rhonchi. Heart is distant sounding. Normal S1, S2. Borderline tachycardic. Abdomen soft, doughy, nontender. White cell count 5, hemoglobin 14.1, and platelets of 251. Carbon dioxide 25, BUN 74, creatinine 4.5, INR 3.36. ASSESSMENT: This is a 61-year-old male with chronic atrial fibrillation, systolic heart failure, chronic kidney disease Stage IV, who presented with acute on chronic systolic congestive heart failure related to medication irregularities. PLAN: 1. Congestive heart failure. Discussed the importance of following a fluid restriction and monitoring his weight on a daily basis. Right now, he does not have a scale at home, but he is going to work on that. 2. Patient has chronic kidney disease Stage IV. He would appear to be at his baseline. I did discuss this case in person with Dr. Vizcaino who is willing to have the patient discharged as early as today. 3. Patient has atrial fibrillation and plans for followup with the director of product management next week. He is pursuing possible cardioversion or EP procedure. INR is trending downward. Will continue to hold his Coumadin for now. 4. The patient has panic disorder. Continuing on Xanax. 5. Patient has hypertension. Continued on diltiazem and metoprolol. Norvasc is held. 6. Deep vein thrombosis (DVT) prophylaxis. Supratherapeutic INR.
[2016-11-30 16:00] VITALS: BP 141/99
[2016-11-30] MEDS: METOPROLOL SUCC (TopROL XL) 100MG *XL* TAB PO SCH (20:28)
[2016-11-30 20:46] VITALS: BP 120/110
[2016-11-30 23:37] VITALS: BP 123/80
--- NOTE | 2016-12-01 | CR ---
DATE OF CONSULTATION: 11/30/2016 NEPHROLOGY CONSULTATION FOR: Dr. Amarilis Suggs REASON FOR CONSULTATION: Congestive heart failure in this gentleman with advanced kidney disease. HISTORY OF PRESENT ILLNESS: Mr. Rg is a 61-year-old gentleman who was recently admitted to [facility] with rapid atrial fibrillation and worsening kidney function. He is now admitted with shortness of breath. I was asked to see him because of his advanced kidney disease and potential need for dialysis. Mr. 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 He was recently admitted to [facility] with atrial fibrillation and rapid ventricular rate when he developed acute renal failure superimposed on chronic kidney disease. At that time, his medications were adjusted and his atrial fibrillation improved. His kidney function improved only slightly prior to discharge. The patient reports that since then, he has followed up with his primary auto wrecker and bottling line attendant in [place]. A plan for cardioversion and possible ablation has been discussed due to his symptomatic atrial fibrillation. The patient has not required dialysis so far. Over the weekend, he developed worsening shortness of breath, which he tried to manage with controlling his anxiety and taking his medications; however, his symptoms worsened due to which he was admitted last evening. He was found to be in decompensated congestive heart failure. A nephrology consultation was requested by Dr. Amarilis Suggs due to potential need for dialysis with worsening kidney function. The patient is seen this morning on his bedside. PAST MEDICAL AND SURGICAL HISTORY: The patient has no significant surgical history. His medical problems include atrial fibrillation, systolic congestive heart failure, advanced stage IV of chronic kidney disease, hypertension, prior history of aortic dissection, COPD and anxiety with panic attacks. FAMILY HISTORY: Negative for end-stage renal disease. PERSONAL AND SOCIAL HISTORY: The patient denies any recreational drug use, alcohol or tobacco use. ALLERGIES: He has intolerance to CLONIDINE; however, no known drug allergies.. HOME MEDICATIONS: Home medications currently include amlodipine 10 mg daily, calcitriol 0.25 mcg three times a week, diltiazem ER 300 mg daily, furosemide 20 mg daily, metoprolol 50 mg in the morning and 100 mg in the evening, potassium chloride 20 mEq daily and warfarin 1.5 mg daily. He also takes Xanax as needed for anxiety. REVIEW OF SYSTEMS: The patient denies any fever or chills. There is no headache or dizziness. Eyes, ears, nose and throat are unremarkable. Cardiovascular system is as per history of present illness. He reports worsening shortness of breath due to which he presented to the emergency room. He denies any chest pain. His dyspnea has improved since admission. Respiratory system is negative for cough or hemoptysis. GI system is negative for nausea, vomiting or diarrhea. system is negative for dysuria or hematuria. Psychosocial system is significant for anxiety and panic attacks. Neurological system is negative for seizures. Skin is negative for rash or ulcers. Musculoskeletal system is negative for any significant arthralgias. He does get ankle edema at times. PHYSICAL EXAMINATION: Temperature 96.9 degrees Fahrenheit, heart rate 80 per minute and respiratory rate 18 per minute. Blood pressure 130/86 mmHg and oxygen saturation 96% on room air. Head is atraumatic. Ears, nose and throat are unremarkable. Pupils equal and reactive to light and sclerae is anicteric. Neck is supple and without jugular venous distention (JVD) or thyroid enlargement at present. Trachea is midline. Heart sounds are irregular in rhythm. Lungs sound clear to auscultation. Abdomen is soft and nontender and without a palpable organomegaly. Bowel sounds are normal. Extremities have no cyanosis or clubbing. Skin has no rash or ulcers. Neurologically, he is awake, alert and oriented times three. LABORATORY DATA: Sodium is 145, potassium 4.2. BUN 74 and creatinine 4.50. CPK has been 179, 45 and 41 respectively. Troponin 0.02. PROBLEMS: 1. Acute kidney injury superimposed on chronic kidney disease. The patient is known to have advanced stage IV or early stage V of chronic kidney disease at baseline. Worsening kidney function is most likely related to decompensated congestive heart failure. Previously, he had a similar problem with rapid atrial fibrillation. However, at present, his ventricular rate is very well controlled. The patient reports that recently his diuretic dose was cut down after he suggested to his auto wrecker that too much diuretic makes him dehydrated. Most likely, the patient will require twice a day Lasix in the dose of 20-40 mg, a total of 60-80 mg per day. With advanced kidney injury, he is very high risk for recurrent volume overload or congestive heart failure. I have discussed with the patient at length about need for preparation for dialysis as his kidney dysfunction is significantly advanced. He does not need any emergent dialysis at this point. 2. Congestive heart failure. The patient did receive intravenous diuretics with good response and improvement in his volume status and symptoms. I suggest that the patient takes 40 mg of Lasix twice a day. 3. Atrial fibrillation. At present, his ventricular rate is very well controlled, and he will continue with current dose of beta junior, calcium channel junior and Coumadin. I thank you for involving me in the care of Mr. Rg. I will follow him along with you. KAVON
[2016-12-01] MEDS: SLF 3 ML SYR IV SCH (05:32)
[2016-12-01 05:39] VITALS: BP 120/92
[2016-12-01 06:23] LABS: CALCIUM LEVEL 8.8 MG/DL (8.8-10.2); CREATININE FOR GFR 4.65 MG/DL (0.70-1.30); GLOMERULAR FILTRATION RATE 13.7 (>49); MAGNESIUM LEVEL 2.2 MG/DL (1.8-2.4)
[2016-12-01 06:38] LABS: BASO % 0.7 % (0.0-1.0); EOS # 0.1 K/mm3 (0.0-0.50); EOS % 2.5 % (0.0-3.0); INR 3.12; LARGE UNSTAINED CELL # 0.2 K/mm3 (0.0-0.4); LARGE UNSTAINED CELL % 4.4 % (0.0-4.0); LYMPH # 1.1 K/mm3 (1.5-4.5); LYMPH % 20.3 % (24.0-44.0); MEAN CORPUSCULAR HEMOGLOBIN 27.6 pg (27.0-33.0); MEAN CORPUSCULAR HGB CONC 30.9 g/dl (32.0-36.5); MEAN CORPUSCULAR VOLUME 89.4 fl (80.0-96.0); MONO # 0.6 K/mm3 (0.0-0.8); MONO % 11.2 % (0.0-5.0); NEUTROPHILS # 3.3 K/mm3 (1.8-7.7); NEUTROPHILS % 60.9 % (36.0-66.0); PLATELET COUNT, AUTOMATED 259 k/mm3 (150-450); RED CELL DISTRIBUTION WIDTH 13.5 % (11.5-14.5); WHITE BLOOD COUNT 5.4 K/mm3 (4.0-10.0)
[2016-12-01 08:00] VITALS: BP 118/80
[2016-12-01 08:41] VITALS: BP 118/80
[2016-12-01] MEDS: diltiaZEM **CD** 180 MG CAP PO SCH (08:41)
[2016-12-01] MEDS: METOPROLOL SUCC (TopROL XL) 50MG **XL** TAB PO SCH (08:41)
[2016-12-01] MEDS ORDERED: FUROSEMIDE 40 MG TAB PO SCH (09:00)
[2016-12-01] MEDS ORDERED: CALCITRIOL 0.25 MCG CAP (S0169) PO SCH (09:00)
[2016-12-01] MEDS ORDERED: FURO40TA2 PO (09:07)
[2016-12-01] MEDS ORDERED: POTA20TA PO (10:06)
--- NOTE | 2016-12-02 06:34 | IPN ---
DATE: 12/01/2016 SUBJECTIVE: This is a 61-year-old male who is seen and examined at bedside. Overnight, no acute events. This morning, feels a lot better. Denies any chest pain, shortness of breath, fever, chills, nausea, vomiting, diarrhea. Has been ambulating around the huynh without any issues. OBJECTIVE: VITAL SIGNS: Blood pressure 118/80. Heart rate 80. Temperature 96.8. Respiratory rate 16. Pulse oximetry 96% on room air. Intake and output last 24 hours 2720 in and 6375 out for net negative of 3.6 liters. Weight is 91.5 kg. GENERAL: The patient is lying in bed comfortable in no acute distress. Alert, awake, oriented times three, pleasant, cooperative. HEENT: Normocephalic, atraumatic. Moist oral mucosa. NECK: Supple. Trachea midline. No jugular venous distention (JVD). CHEST: Symmetric chest rise. No accessory muscle use. Breath sounds were diminished, but clear bilaterally. HEART: Irregular, but not tachycardiac. No appreciable murmurs, rubs or gallop S1, S2, variable. ABDOMEN: Soft. Nontender. Nondistended. Bowel sounds present. No guarding. No rebound. EXTREMITIES: No pedal edema. Pedal pulses present bilaterally. NEUROLOGIC: No focal deficits. LABORATORY DATA: WBC 5.4, hemoglobin 12.8, hematocrit 41.5, and platelets 259. Sodium 145, potassium 4, chloride 107, carbon dioxide 28, BUN 71, creatinine 4.65, glucose 101. Troponin negative times three. PT 32.1 and INR 3.12. IMPRESSION AND PLAN: Mr. Rg is a 61-year-old male who presented with shortness of breath and found to have congestive heart failure (CHF) exacerbation. 1. Acute kidney injury superimposed on chronic kidney disease. He is known to have baseline Stage IV to V of chronic kidney disease (CKD). He follows with a motor analyst in [place]. Since admission has been making good diuresis. Therefore we have discontinued his IV Lasix. Recommend the patient starting Lasix 40 mg by mouth twice a day with potassium supplementation. With his advanced CKD and atrial fibrillation, he is at risk for recurrence of decompensation in the future. 2. Congestive heart failure (CHF). No echo documented in our record. Currently is compensated. Was decompensated on admission. Recommend continue Lasix 40 mg at discharge twice a day and potassium supplementation at home dose. 3. Atrial fibrillation. Rate continues to be well controlled. He is on Toprol XL 50 every p.m. and 100 at bedtime. 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 At this time, he would like to have his atrial fibrillation under control before he can consider having fistula placement for planning of hemodialysis. His INR was supratherapeutic this morning and Coumadin is held by the primary team. 4. Hypertension. Continue home dose of diltiazem, Toprol XL and Lasix. From a renal standpoint, the patient can be discharged whenever cleared by the primary team. My preceptor for this patient encounter was Dr. Zachery Vizcaino. The preceptor was physically present in the building during the encounter and was fully available. As needed, all aspects of the patient interview, examination, medical decision making process, and medical care plan development were reviewed and approved by the preceptor. The preceptor is aware and concurs with the plan as stated in the body of this note and will attest to such by his/her cosignature. KAVON
--- NOTE | 2016-12-02 09:32 | DSES ---
DATE OF ADMISSION: 11/29/2016 DATE OF DISCHARGE: 12/01/2016 SPECIALISTS INVOLVED IN CARE: Dr. Vizcaino. COMPLICATIONS: None. PROCEDURES PERFORMED: None. DISCHARGE DIAGNOSES: 1. Acute kidney injury in the setting of chronic kidney disease stage IV or perhaps early stage V. 2. Congestive heart failure related to noncompliance with diuretics. 3. Atrial fibrillation. 4. Systolic congestive heart failure. 5. Chronic pulmonary obstructive disease (COPD). 6. Chronic type B aortic dissection. 7. Panic disorder. FINAL SUMMATION OF HOSPITALIZATION: This is a 61-year-old with multiple medical issues who had increasing shortness of breath related to decreasing his own Lasix dose. He does not comply with home fluid regimen and does not take his daily weights. He was admitted to the hospitalist service team, consultation by nephrology. He underwent IV diuresis with markedly improved symptoms. On the day of discharge he is feeling well and he has done eight laps around the floor and he feels much better. PHYSICAL EXAMINATION: VITAL SIGNS: Temperature 96.8, pulse 80, respirations 18, blood pressure 118/80, 96% on room air. Intake and output (I and O) notable for negative fluid balance of minus 3655. Weight is 91.5 kg. Body mass index 28.9. GENERAL: He is awake, appropriately interactive, pleasantly conversant. CHEST: Breathing is symmetrical and rested. HEART: Regular rhythm. ABDOMEN: Soft, nontender. LABORATORY DATA: White blood cell count 5.4, hemoglobin 12.8, BUN 73, creatinine 4.6. DISCHARGE INSTRUCTIONS: 1. Followup with his dental appliance fixer as scheduled next week. 2. Followup with his gluing machine feeder in [place]. He is to take his weights daily and record. Call his gluing machine feeder with any three pound weight gain from today's weight. MEDICATIONS AT DISCHARGE: - Lasix 40 mg by mouth twice daily - Xanax 0.5 mg every four hours as needed for anxiety - calcitriol 0.25 mg three times a week - diltiazem ER 300 mg by mouth daily - metoprolol succinate 50 mg by mouth every morning and 100 mg by mouth at bedtime - continue KayCiel 20 mg by mouth daily - continue Coumadin 1.5 mg every evening - discontinue Advair cold and sinus - discontinue Norvasc - discontinue his previous dose of Lasix
== END 2016-12-01 11:13 | disposition home or self-care (01) | DRG 194 ==
LOC: M PCU 17:24
PROVIDERS: ADMIT Hospitalist; ATTEND Internal Medicine
DX: I13.0 Hypertensive heart and chronic kidney disease with heart failure and stage 1 through stage 4 chronic kidney disease, or unspecified chronic kidney disease (principal); N18.4 Chronic kidney disease, stage 4 (severe); Z79.01 Long term (current) use of anticoagulants; J44.9 Chronic obstructive pulmonary disease, unspecified; I48.2 Chronic atrial fibrillation; F41.0 Panic disorder [episodic paroxysmal anxiety]; Z66 Do not resuscitate; Z88.8 Allergy status to other drugs, medicaments and biological substances; Z79.899 Other long term (current) drug therapy; I50.23 Acute on chronic systolic (congestive) heart failure

== ENCOUNTER 2018-04-08 18:26 | Emergency (ER) | payer SELFPAY, BC ==
[2018-04-08] MEDS: EPINEPHrine 1MG/10ML SYRINGE 1.5IN IV (18:30)
== END 2018-04-08 20:30 | disposition expired ==
LOC: M ED 18:26
DX: I46.9 Cardiac arrest, cause unspecified (principal); I51.9 Heart disease, unspecified; I10 Essential (primary) hypertension; N18.9 Chronic kidney disease, unspecified; Z79.01 Long term (current) use of anticoagulants; Z79.899 Other long term (current) drug therapy; Z88.8 Allergy status to other drugs, medicaments and biological substances
CPT/HCPCS: 96374